=== PATIENT | female | born 1985 | race Caucasian/White ===

== ENCOUNTER 2018-08-22 19:11 | Emergency (ER) | payer MEDICARE, MEDICAID, SELFPAY ==
[2018-08-22 19:14] VITALS: BP 130/71; PULSE 90; RESP 16; TEMP 37.1; O2SAT 96
--- NOTE | 2018-08-22 19:49 | ED.GENADUL_ITS ---
Discharge Plan Disposition Patient Disposition: HOME Condition: Stable Discharge Details Chief Complaint: Nk/Back Pain Clinical Impression: Back pain with right-sided sciatica Primary Care Provider: [facility],LOCAL ED Provider: Silviano Solis Home Meds and New Rx's Prescriptions: New ibuprofen [IBU] 600 mg tablet 600 mg PO QID PRN (Reason: pain) Qty: 20 RF: 0 Continue clindamycin HCl 150 MG capsule 450 mg PO TID Qty: 63 RF: 0 acetaminophen [Tylenol] 325 MG tablet 650 mg PO PRN PRNRF: 0 Insulin Glargine,Hum.rec.anlog [Lantus] 100 UNIT/ML Vial 25 units SQ HS RF: 0 Discontinued ibuprofen [Advil] 200 MG tablet 400 mg PO PRN PRNRF: 0 Discharge Instructions Instructions: Sciatica (ED), Lower Back Exercises (ED) Additional Instructions: Feel free to return to the emergency department for any new or worsening symptoms otherwise follow-up with your primary care provider if not improving over the next couple weeks. Referrals: Primary Care Provider [Outside] Medical Decision Making Patient presenting to the emergency department for chief complaint of back pain and sciatica. Patient states that she began having sciatica with her last and that sciatica flares up intermittently and this time she feels that is due to the weather. It is been going on for approximately 1 day and feels normal to her typical sciatic discomfort. Patient denies any injury or trauma, lifting, changes in bowel or bladder function, saddle anesthesia or change in bowel or bladder function. Physical exam is remarkable for positive right-sided straight leg raise, lumbar tenderness mainly on the right, and sciatic notch tenderness on the right. Physical exam is otherwise unremarkable and no signs of emergent back pain are noted. Patient given ketorolac and lidocaine patch and prescription for ibuprofen to use on an outpatient basis along with recommendation for [id number] lidocaine. Patient states that Flexeril has not been helpful in the past and that receiving shot of ketorolac helps the most. Patient does have history of diabetes so patient not placed on steroids at this time but is considered as a potential modality if initial treatment fails. After discussion of diagnosis and plan of care patient has no further needs, questions, or concerns and states clear understanding to return to the emergency department for any worsening symptoms. HPI General Mode of arrival: ambulatory . Date/Time Provider Initiated Documentation: 08/22/18 19:23 . Limitations to Documentation: no limitations . Information obtained by: patient . History of Present Illness 32 year old F presents to the emergency department with the chief complaint of back pain, described as moderate, with intensity rated at 9. Quality is described as sharp, and is localized to the back. Patient extremity (right) . Patient started experiencing this day(s) (1) and it has been constant. Rest improves symptom(s), Movement worsens symptoms . Patient notes no other symptoms.. Patient did receive the following treatments prior to arrival, other (Acetaminophen) Related Data Home Medications Medication Instructions Recorded Confirmed acetaminophen [Tylenol] 650 mg PO PRN PRN 05/15/17 08/22/18 Insulin Glargine,Hum.rec.anlog 25 units SQ HS 05/10/18 08/22/18 [Lantus] clindamycin HCl 450 mg PO TID #63 cap 05/20/18 08/22/18 ibuprofen [IBU] 600 mg PO QID PRN #20 tab 08/22/18 Previous Rx's Medication Instructions Recorded clindamycin HCl 450 mg PO TID #63 cap 05/20/18 ibuprofen [IBU] 600 mg PO QID PRN #20 tab 08/22/18 Allergies Allergy/AdvReac Type Severity Reaction Status Date / Time Penicillins AdvReac Intermediate Hives Unverified 08/22/18 19:19 guaifenesin [From Robitussin] AdvReac Mild Nausea Unverified 08/22/18 19:19 General Stated Complaint: Nk/Back Pain JUDITH: 4 Review of Systems Constitutional Denies chills and Denies fever(s) Cardiovascular Denies chest pain and Denies dyspnea on exertion Respiratory Denies dyspnea on exertion Gastrointestinal Denies abdominal pain, Denies change in bowel habits, Denies diarrhea, Denies nausea and Denies vomiting Genitourinary Denies urinary incontinence Musculoskeletal Reports as per HPI and Reports back pain Neurologic Denies sensory deficit PFSH Social History Smoking/Tobacco Use Status: Current every day Exam Const General: cooperative and no acute distress Orientation: alert, awake and oriented x3 Neck Neck: normal visual inspection, full ROM and no meningeal signs Resp Effort & Inspection: normal respiratory effort Auscultation: clear to auscultation bilaterally Cardio Rate: regular rate Rhythm: regular rhythm Heart Sounds: S1 normal and S2 normal GI Palpation: no hepatosplenomegaly, no aortic enlargement, no masses and no pulsatile masses Back/Spine/Pelvis Thoracic/Lumbar Spine: pain with thoraco-lumbar ROM, paraspinal tenderness ( lower lumbar), thoraco-lumbar ROM limited, lumbar spinal tenderness and straight leg raise positive (right ) Pelvis: no pain with anterior-posterior compression, no pain with lateral compression, buttock tenderness on the right and sciatic notch tenderness on the right Sacroiliac joints: on the left Neuro General: alert, awake and oriented x3 DTR's: Rt Patellar: 1+, Lt Patellar: 1+, Rt Ankle: 1+ and Lt Ankle: 1+ Extrem Right lower extremity: hip/thigh Details: normal to inspection, knee Details: normal to inspection and lower leg Details: normal to inspection Course Vital Signs Temperature 37.1 C 08/22/18 19:14 Pulse 90 08/22/18 19:14 Respiratory Rate 16 08/22/18 19:14 Blood Pressure 130/71 08/22/18 19:14 Pulse Oximetry 96 08/22/18 19:14 Temperature 37.1 C 08/22/18 19:14 Temperature Source Temporal Artery Scan 08/22/18 19:14 Pulse 90 08/22/18 19:14 Respiratory Rate 16 08/22/18 19:14 Respiratory Effort Non-Labored 08/22/18 19:15 Blood Pressure 130/71 08/22/18 19:14 Blood Pressure Position Sitting 08/22/18 19:14 Pulse Oximetry 96 08/22/18 19:14 Oxygen Delivery Method Room Air 08/22/18 19:14 Oxygen Flow Rate 0 08/22/18 19:14 Pain Level 9 08/22/18 19:15
[2018-08-22] MEDS: Ketorolac 60 MG/2 ML VIAL IM (20:00)
[2018-08-22] MEDS: Lidocaine 5% Patch 1 PATCH TP (20:00)
== END 2018-08-22 20:31 | disposition home or self-care (01) ==
LOC: ER 20:35
PROVIDERS: Emergency Provider Nurse Practitioner Family; PCP Physician Assistant
DX: M54.41 Lumbago with sciatica, right side (principal)
CPT/HCPCS: 96372; 99284; J1885

== ENCOUNTER 2018-09-07 15:44 | Emergency (ER) | payer MEDICARE, MEDICAID, SELFPAY ==
[2018-09-07] VITALS (13 sets, daily range): BP systolic 130–164; BP diastolic 65–106; PULSE 80–98; RESP 12–29; TEMP 36.7; O2SAT 95–98
[2018-09-07 16:19] LABS: Bilirubin Negative (Negative); Blood Negative (Negative); Clarity Sl Cloudy; Glucose 500 mg/dL (Negative); Ketones Negative (Negative); Leukocyte Esterase Negative (Negative); Nitrite Negative (Negative); Urobilinogen 0.2 EU/dL (Up TO 0.2); pH 5.5 (5-8)
[2018-09-07 16:22] LABS: Abs Immature Grans 0.04 k/cumm (0.0-0.09); Absolute Basophil Count 0.04 k/cumm (0.0-0.2); Absolute Eosinophil Count 0.25 k/cumm (0.0-0.7); Absolute Lymphocyte Count 1.54 k/cumm (1.2-3.4); Absolute Monocyte Count 0.41 k/cumm (0.11-0.7); Absolute Neutrophil Count 6.82 k/cumm (1.2-6.7); Basophils % 0.4; Eosinophils % 2.7; HCT 43.4 % (36.0-46.0); HGB 14.4 g/dL (12.0-15.5); Immature Grans % 0.4; Lymphocytes % 16.9; Mean Corp. HGB Concentration 33.2 g/dL (32.0-36.0); Mean Corpuscular Hemoglobin 28.5 pg (27.0-33.0); Mean Corpuscular Volume 85.9 fL (80-95); Mean Platelet Volume 10.9 fL (8.0-11.0); Monocytes % 4.5; Neutrophils % 75.1; Platelet Count 173 x1000/uL (130-400); RBC 5.05 m/cumm (4.00-5.20); RBC Distribution Width 14.2 % (11.7-14.6)
[2018-09-07 16:33] LABS: ALT 27 U/L (12-78); AST 19 U/L (15-37); Albumin 3.3 g/dL (3.4-5.0); Alkaline Phosphatase 109 U/L (46-116); Anion Gap 11.5 mmol/L (3-11); BUN 8 mg/dL (7-18); Bilirubin, Total 0.2 mg/dL (0.2-1.0); CO2 26.5 mmol/L (21.0-32.0); CREATININE 0.87 mg/dL (0.55-1.02); Chloride 96 mmol/L (98-107); Glucose 324 mg/dL (70-100); Potassium 3.7 mmol/L (3.5-5.1); Sodium 134 mmol/L (136-145); Total Protein 7.7 g/dL (6.4-8.2)
[2018-09-07 16:34] LABS: Troponin I < 0.02 ng/mL (0.00-0.06)
[2018-09-07] MEDS: Ibuprofen 800 MG TAB PO (16:39)
[2018-09-07] MEDS: Lactated Ringers 500 ML IV (16:39)
[2018-09-07] MEDS: Acetaminophen 500 MG TAB 1000 MG PO (16:39)
[2018-09-07 16:41] LABS: TSH 2.53 uIU/mL (0.358-3.74)
--- NOTE | 2018-09-07 17:21 | DI.RAD_ITS ---
SYMPTOM/DIAGNOSIS: SOB CHEST X-RAY: Frontal and lateral views. Comparison CT scan of the abdomen and pelvis . The heart is mildly enlarged. There is again seen a prosthetic valve at the level of the sherry on the AP view. This has a similar appearance to the Topagram from the CT scan of the abdomen and pelvis from 04/22/17. The lungs are clear. No effusions or pneumothoraces are identified. The bones are intact. There is a mild thoracolumbar acetabular scoliosis present. Medial sternotomy wires are in place. IMPRESSION: No acute pulmonary process.
--- NOTE | 2018-09-07 17:29 | DI.VRAD_ITS ---
EXAM: XR Chest, 2 Views EXAM DATE/TIME: 09/07/2018 5:23 PM CLINICAL HISTORY: 32 years old, female; Signs and symptoms; Cough and shortness of breath; Patient HX: Shortness of breath, cough TECHNIQUE: XR of the chest, 2 views. COMPARISON: No relevant prior studies available. FINDINGS: Lungs: Unremarkable. No consolidation. Pleural space: Unremarkable. No pleural effusion. No pneumothorax. Heart/Mediastinum: Prosthetic heart valve is noted overlying the upper mediastinum. Mild cardiomegaly. Bones/joints: Mild scoliosis, thoracolumbar spine. Status post median sternotomy. IMPRESSION: No acute findings. Lungs are clear. Dictated and Authenticated by: Jr Malcolm MD. Ordering:TOD NICHOLS MD
--- NOTE | 2018-09-07 17:36 | ED.GENADUL_ITS ---
Discharge Plan Disposition Patient Disposition: HOME Condition: Good Discharge Details Chief Complaint: GenMedical Clinical Impression: Headache, Hypertension Primary Care Provider: Margarita Cuenca ED Provider: Nando Schwab Home Meds and New Rx's Prescriptions: No Action ibuprofen [IBU] 600 mg tablet 600 mg PO QID PRN (Reason: pain) Qty: 20 RF: 0 acetaminophen [Tylenol] 325 MG tablet 650 mg PO PRN PRNRF: 0 Insulin Glargine,Hum.rec.anlog [Lantus] 100 UNIT/ML Vial 25 units SQ HS RF: 0 Discharge Instructions Instructions: Hypertension (ED) Additional Instructions: Please follow-up with your primary care provider in regards to your hypertension. If you notice any worsening of your symptoms, or any new symptoms such as vomiting, diarrhea, fever, chills, shortness of breath, chest pain, numbness, weakness, or fainting , please return immediately to the emergency department for reevaluation. Please follow up with your primary care provider as soon as possible for reassessment and reevaluation. As always, it was a pleasure participating in your medical care today. Referrals: Margarita Cuenca [Primary Care Provider] - Medical Decision Making This is a pleasant 32-year-old female with a past medical history of DiGeorge's syndrome, diabetes, heart valve replacement, tobacco use, who presents today for evaluation of headache and elevated blood pressure. She states that she has been under a lot of stress over the last few days, she had a mild headache today, went to write 8 and got her blood pressure checked where she was noted to be elevated. She came here for further evaluation. She denies any red flags of syncope, chest pain, history of PE, arm pain, neck pain , cough fever or chills. Physical exam demonstrates a cardiac murmur, which is expected with her valve replacement. EKG shows a right bundle branch block, and findings are consistent with a prior EKGs. Chest x-ray was ordered and is negative for any pneumonia, pneumothorax or acute process. No anemia, on lab work, normal blood work on exam, TSH and urinalysis benign. During an observation period here in the ED the patient's blood pressure returned to normal on its own without any intervention. Her headache has completely improved with some Tylenol, she is feeling much better. We did get the patient up and ambulated her around the department, she had no return of the headache, no worsening chest pain, shortness of breath, or other abnormality. She had no tachycardia or hypoxemia with ambulation. The patient is PERC and Wells negative. They feel her blood pressure may have been elevated secondary to her headache, I feel she can be safely discharged home with a more normal blood pressure at this time with close follow-up with her PCP for outpatient hypertension management. We discussed red flags for which to return the patient understands. I have extensively reviewed the treatment plan and discharge instructions with the patient. I have addressed all patient concerns at this time. The patient was made aware of what symptoms to monitor for that would warrant a return to the emergency department. Discussed the plan with the patient, they demonstrate verbal understanding and agreement with our assessment and plan at this time. HPI General Date/Time Provider Initiated Documentation: 09/07/18 15:45 . HPI Narrative: This is a 32-year-old female with a past medical history of DiGeorge's syndrome, heart valve replacement, tubal ligation, diabetes, and chronic tobacco use who presents for evaluation of elevated blood pressure. Patient states that over the last few days she has been very stressed , and has developed a mild headache, because of this she went to [employer], checked her blood pressure and noted that it was elevated in the 190s for her systolic and 100 for her diastolic. She came in here for further evaluation. She is normally not on antihypertensive medications, she states that sometimes her blood pressure is high, but usually not that she denies any associated chest pain, she does admit to a very mild chronic shortness of breath which she states is from her previous cardiac valve, and smoking. She denies any worsening of her shortness of breath compared to normal. She denies any pleuritic chest pain, or generalized chest pain. Patient denies any vision changes, arm pain or neck pain. She denies any nausea, vomiting, or diarrhea. She denies any symptoms of syncope. She denies any cough, fever or chills. She has no other complaints at this time. Denies PE risk factors such as recent long car rides, immobilization, recent surgery, prior history of DVT or PE, family history of PE or DVT, morbid obesity, exogenous estrogen and smoking , hemoptysis, history of cancer. Related Data Home Medications Medication Instructions Recorded Confirmed acetaminophen [Tylenol] 650 mg PO PRN PRN 05/15/17 09/07/18 Insulin Glargine,Hum.rec.anlog 25 units SQ HS 05/10/18 09/07/18 [Lantus] ibuprofen [IBU] 600 mg PO QID PRN #20 tab 08/22/18 09/07/18 Previous Rx's Medication Instructions Recorded ibuprofen [IBU] 600 mg PO QID PRN #20 tab 08/22/18 Allergies Allergy/AdvReac Type Severity Reaction Status Date / Time Penicillins AdvReac Intermediate Hives Unverified 09/07/18 15:55 guaifenesin [From Robitussin] AdvReac Mild Nausea Unverified 09/07/18 15:55 General Stated Complaint: GenMedical JUDITH: 4 Review of Systems Review of Systems All systems reviewed & are unremarkable except as noted in HPI and below Exam Narrative Exam Narrative: 1.Const: Well-nourished, Well-developed, appearing stated age 2.Eyes: PERRL, no conjunctival injection, and symmetrical lids. 3.ENT: Atraumatic external nose and ears. Moist MM. Neck: Symmetric, trachea midline, No thyromegaly. Patient demonstrates good movement of cervical neck. There is no nuchal rigidity, no nuchal tenderness. Patient is able to flex the neck without any difficulty or significant pain. Negative Kernig's and Brudzinski sign. 4.CVS: +S1/S2, notable murmur with split S2. Peripheral pulses 2+ and equal in all extremities. Brisk capillary refill in all extremities. 5.RESP: Unlabored respiratory effort. Clear to auscultation bilaterally. No wheezes rales or rhonchi 6.GI: Soft, Nontender/Nondistended, No hepatosplenomegaly. No guarding or rebound. 7.MSK: Normocephalic/Atraumatic, Extremities w/o deformity or ttp No cyanosis or clubbing, Normal movement of all extremities 8.Skin: Warm, Dry. No rashes or lesions. 9.Neuro: cutting machine tender decorative II-XII grossly intact. Sensation grossly intact, no focal neurologic deficits. 10.Psych: (AAO) x3. Appropriate mood and affect Course Vital Signs Temperature 36.7 C 09/07/18 15:50 Pulse 98 H 09/07/18 15:50 Respiratory Rate 16 09/07/18 15:50 Blood Pressure 164/106 H 09/07/18 15:50 Pulse Oximetry 98 09/07/18 15:50 Temperature 36.7 C 09/07/18 15:50 Temperature Source Temporal Artery Scan 09/07/18 15:50 Pulse 89 09/07/18 16:46 Pulse 89 09/07/18 16:50 Respiratory Rate 28 H 09/07/18 16:50 Respiratory Effort Non-Labored 09/07/18 15:53 Blood Pressure 141/73 H 09/07/18 16:46 Blood Pressure Mean 89 09/07/18 16:46 Blood Pressure Position Sitting 09/07/18 15:50 Pulse Oximetry 96 09/07/18 16:50 Oxygen Delivery Method Room Air 09/07/18 15:50 Oxygen Flow Rate 0 09/07/18 15:50 Pain Level 0 09/07/18 15:50 Lab/Test Results Lab/Test Results: Laboratory Tests Range/Units 09/07/18 09/07/18 09/07/18 16:09 16:09 16:09 WBC (4.4-10.8) k/cumm 9.10 RBC (4.00-5.20) m/cumm 5.05 Hgb (12.0-15.5) g/dL 14.4 Hct (36.0-46.0) % 43.4 MCV (80-95) fL 85.9 MCH (27.0-33.0) pg 28.5 MCHC (32.0-36.0) g/dL 33.2 RDW (11.7-14.6) % 14.2 Plt Count (130-400) x1000/uL 173 MPV (8.0-11.0) fL 10.9 Immature Gran % 0.4 Neutrophils % 75.1 Lymphocytes % 16.9 Monocytes % 4.5 Eosinophils % 2.7 Basophils % 0.4 Absolute Neutrophils (1.2-6.7) k/cumm 6.82 H Absolute Lymphocytes (1.2-3.4) k/cumm 1.54 Absolute Monocytes (0.11-0.7) k/cumm 0.41 Absolute Eosinophils (0.0-0.7) k/cumm 0.25 Absolute Basophils (0.0-0.2) k/cumm 0.04 Sodium (136-145) mmol/L 134 L Potassium (3.5-5.1) mmol/L 3.7 Chloride (98-107) mmol/L 96 L Carbon Dioxide (21.0-32.0) mmol/L 26.5 Anion Gap (3-11) mmol/L 11.5 H BUN (7-18) mg/dL 8 Creatinine (0.55-1.02) mg/dL 0.87 Estimated GFR/1.73 m2 (mL/min/1.73m2) >= 60.00 Glucose (70-100) mg/dL 324 H Calcium (8.5-10.1) mg/dL 9.0 Total Bilirubin (0.2-1.0) mg/dL 0.2 AST (15-37) U/L 19 ALT (12-78) U/L 27 Alkaline Phosphatase (46-116) U/L 109 Troponin I (0.00-0.06) ng/mL < 0.02 Total Protein (6.4-8.2) g/dL 7.7 Albumin (3.4-5.0) g/dL 3.3 L TSH (0.358-3.74) uIU/mL 2.53 Urine Color (Yellow) Urine Clarity Urine pH (5-8) Ur Specific [place] (1.005-1.025) Urine Protein (Negative) mg/dL Urine Ketones (Negative) mg/dL Urine Blood (Negative) Urine Nitrite (Negative) Urine Bilirubin (Negative) Urine Urobilinogen (Up TO 0.2) EU/dL Ur Leukocyte Esterase (Negative) Urine Glucose (Negative) mg/dL Range/Units 09/07/18 16:12 WBC (4.4-10.8) k/cumm RBC (4.00-5.20) m/cumm Hgb (12.0-15.5) g/dL Hct (36.0-46.0) % MCV (80-95) fL MCH (27.0-33.0) pg MCHC (32.0-36.0) g/dL RDW (11.7-14.6) % Plt Count (130-400) x1000/uL MPV (8.0-11.0) fL Immature Gran % Neutrophils % Lymphocytes % Monocytes % Eosinophils % Basophils % Absolute Neutrophils (1.2-6.7) k/cumm Absolute Lymphocytes (1.2-3.4) k/cumm Absolute Monocytes (0.11-0.7) k/cumm Absolute Eosinophils (0.0-0.7) k/cumm Absolute Basophils (0.0-0.2) k/cumm Sodium (136-145) mmol/L Potassium (3.5-5.1) mmol/L Chloride (98-107) mmol/L Carbon Dioxide (21.0-32.0) mmol/L Anion Gap (3-11) mmol/L BUN (7-18) mg/dL Creatinine (0.55-1.02) mg/dL Estimated GFR/1.73 m2 (mL/min/1.73m2) Glucose (70-100) mg/dL Calcium (8.5-10.1) mg/dL Total Bilirubin (0.2-1.0) mg/dL AST (15-37) U/L ALT (12-78) U/L Alkaline Phosphatase (46-116) U/L Troponin I (0.00-0.06) ng/mL Total Protein (6.4-8.2) g/dL Albumin (3.4-5.0) g/dL TSH (0.358-3.74) uIU/mL Urine Color (Yellow) Yellow Urine Clarity Sl cloudy Urine pH (5-8) 5.5 Ur Specific [place] (1.005-1.025) 1.020 Urine Protein (Negative) mg/dL Negative Urine Ketones (Negative) mg/dL Negative Urine Blood (Negative) Negative Urine Nitrite (Negative) Negative Urine Bilirubin (Negative) Negative Urine Urobilinogen (Up TO 0.2) EU/dL 0.2 Ur Leukocyte Esterase (Negative) Negative Urine Glucose (Negative) mg/dL 500 H POC- Test(urine) Negative
== END 2018-09-07 17:58 | disposition home or self-care (01) ==
PROVIDERS: Emergency Provider Student in an Organized Health Care Education/Training Program; PCP Physician Assistant
DX: R51 Headache (principal); I10 Essential (primary) hypertension; I45.10 Unspecified right bundle-branch block; Z95.2 Presence of prosthetic heart valve; E11.9 Type 2 diabetes mellitus without complications; F17.210 Nicotine dependence, cigarettes, uncomplicated; Z79.4 Long term (current) use of insulin
CPT/HCPCS: 36415; 80053; 93005; 96360; 99285; 71046; 81003; 84443; 84484; 85025; 93010

== ENCOUNTER 2018-10-19 20:11 | Emergency (ER) | payer MEDICARE, MEDICAID, SELFPAY ==
[2018-10-19 20:27] VITALS: BP 166/83; PULSE 85; RESP 16; TEMP 36.5; O2SAT 97
--- NOTE | 2018-10-19 20:54 | DI.RAD_ITS ---
SYMPTOM/DIAGNOSIS: COUGH, SOB, R/O ACUTE DISEASE PA AND LATERAL CHEST: 10/19 Note is made of prior sternotomy with an apparent aortic valve prosthesis. Cardiac size is upper limits of normal. Lungs are clear. No pleural effusion. No change in appearance of the chest in comparison with examination of 09/07/18
--- NOTE | 2018-10-19 20:55 | W.ED.GENAD ---
Discharge Plan Disposition Patient Disposition: HOME Condition: Stable Discharge Details Chief Complaint: RespSymp Clinical Impression: Acute bronchitis, Cough Primary Care Provider: Margarita Cuenca ED Provider: Kathie Montes Home Meds and New Rx's Prescriptions: New benzonatate [Tessalon Perles] 100 mg capsule 100 mg PO TID PRN (Reason: cough) Qty: 10 RF: 0 Continued ibuprofen [IBU] 600 mg tablet 600 mg PO QID PRN (Reason: pain) Qty: 20 RF: 0 azithromycin [Zithromax Z-Rory] 250 mg Tablet 1 tab PO DAILY RF: 0 acetaminophen [Tylenol] 325 MG tablet 650 mg PO PRN PRNRF: 0 Insulin Glargine,Hum.rec.anlog [Lantus] 100 UNIT/ML Vial 24 units SQ HS RF: 0 Discharge Instructions Instructions: Acute Bronchitis (ED), Acute Cough (ED) Additional Instructions: Take the antibiotics until finished. Use the albuterol inhaler and cough medicine as needed and directed. Follow-up with your primary care doctor in 1 week for reevaluation. Return immediately to the emergency department any worsening or new concerning symptoms. 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 Seen by her PCP office yesterday and started on Zithromax. Patient states tonight she was sitting in front of the pellet stove and felt like she if had more coughing shortness of breath. She states she went outside and her symptoms improved. She denies any throat swelling or wheezing. She has a history of tubal ligation and denies chance of and is declining test at this time. Blood pressure mildly hypertensive, remainder vitals within normal limits. Patient afebrile. She appears nontoxic and is texting on phone and appears in no acute distress on evaluation. Normal ENT exam. Lungs clear to auscultation. Patient states she mainly would like cough medication and albuterol inhaler. Is also requesting a chest x-ray. She is declining a nebulizer treatment. Will send for chest xray. 2157 --chest x-ray negative. Patient has been resting comfortably in room in no acute respiratory distress and is requesting to go home. Will send home with albuterol inhaler and dose of Tessalon Perles and prescription for Tessalon Perles. Discussed with patient that she has no wheezing, no respiratory distress and with concern for hyperglycemia with steroids, will hold on steroids at this time and she is agreeable. Instructed to follow-up with primary care doctor for reevaluation and return here worse. HPI General Mode of arrival: ambulatory. Date/Time Provider Initiated Documentation: 10/19/18 20:43. Limitations to Documentation: no limitations. Information obtained by: patient. HPI Narrative: Patient is a 32-year-old female with a history of diabetes, hypertension, seizure disorder, rheumatoid arthritis, obesity who presents to the ED w/ a c/o cold symptoms for the past week. Pt states she was seen by her PCP office yesterday and diagnosed with a sinus and ear infection and started on Z-Rory. Patient states she was unable to start the prescription until today. Patient states she has been coughing with yellow and green sputum as well as had chest congestion but states she otherwise has had no fever and has been eating and drinking normally. She also denies any headache or neck pain. Patient states she came into the emergency department this evening because she was sitting in front of a pellet stove and felt a sudden onset of shortness of breath. Patient states she feels like it was due to being near this which she has never been before. Pt states she walked outside and her symptoms resolved. She denies any shortness of breath at present. She denies any leg pain or swelling. Related Data Home Medications Medication Instructions Recorded Confirmed acetaminophen [Tylenol] 650 mg PO PRN PRN 05/15/17 10/19/18 Insulin Glargine,Hum.rec.anlog 24 units SQ HS 05/10/18 10/19/18 [Lantus] ibuprofen [IBU] 600 mg PO QID PRN #20 tab 08/22/18 10/19/18 azithromycin [Zithromax Z-Rory] 1 tab PO DAILY 10/19/18 10/19/18 benzonatate [Tessalon Perles] 100 mg PO TID PRN #10 cap 10/19/18 Previous Rx's Medication Instructions Recorded ibuprofen [IBU] 600 mg PO QID PRN #20 tab 08/22/18 benzonatate [Tessalon Perles] 100 mg PO TID PRN #10 cap 10/19/18 Allergies Allergy/AdvReac Type Severity Reaction Status Date / Time Penicillins AdvReac Intermediate Hives Unverified 10/19/18 20:32 guaifenesin [From Robitussin] AdvReac Mild Nausea Unverified 10/19/18 20:32 General Stated Complaint: RespSymp JUDITH: 5 Review of Systems Review of Systems All systems reviewed & are unremarkable except as noted in HPI and below Constitutional Reports as per HPI, Denies chills and Denies fever(s) Eyes Denies blurry vision ENT Denies dizziness, Denies otalgia, Denies sore throat and Denies throat swelling Cardiovascular Denies chest pain and Denies dyspnea Respiratory Reports chest congestion, Reports cough, Denies dyspnea and Denies wheezing Gastrointestinal Denies abdominal pain, Denies diarrhea and Denies vomiting Genitourinary Denies hematuria and Denies dysuria Musculoskeletal Denies back pain and Denies numbness Integumentary/Breasts Denies lesions and Denies rash Neurologic Denies dizziness and Denies numbness Allergic/Immunologic Denies throat swelling and Denies wheezing [facility] Medical History Diabetes (Chronic) HTN (hypertension) (Chronic) Rheumatoid arthritis (Chronic) Surgical History H/O heart valve replacement with bioprosthetic valve (Acute) History of bilateral tubal ligation (Acute) H/O section (Chronic) History of hernia repair (Chronic) Social History Smoking/Tobacco Use Status: Current every day alcohol intake: current alcohol intake frequency: a few times a month substance use type: does not use Exam Const General: cooperative, healthy appearing and no acute distress HENMT Head: normal to inspection Ears: hearing grossly normal bilaterally, external ears normal and TM's normal bilaterally General nose exam: external nose normal Face and sinus: normal facial exam and sinuses nontender Mouth: oral mucosae normal Throat: posterior oropharynx normal Eyes General: appearance normal, both eyes and all related structures Pupils: PERRL EOM: EOM intact bilaterally Neck Neck: normal visual inspection and No submandibular swelling Lymphatic: no lymphadenopathy noted Chest Chest: normal inspection of the chest and no tenderness Resp Effort & Inspection: normal respiratory effort and able to speak in complete sentences Auscultation: clear to auscultation bilaterally Cardio Rate: regular rate Rhythm: regular rhythm GI Inspection: normal to inspection Palpation: soft, not firm, not rigid and nontender Auscultation: normal bowel sounds Skin General skin exam: no rashes or lesions noted Neuro General: alert, awake and oriented x3 Cognition: normal cognition Speech: speech normal Motor: muscle tone normal throughout Sensory Exam: no sensory deficits noted Extrem General: normal to inspection, full ROM, normal capillary refill, no calf tenderness bilaterally and no edema Psych Appearance: grossly normal Mental Status: mental status grossly normal Speech and Movement: speech and movement normal Affect: normal affect Course Vital Signs Temperature 97.7 F 10/19/18 20:27 Pulse 85 10/19/18 20:27 Respiratory Rate 16 10/19/18 20:27 Blood Pressure 166/83 H 10/19/18 20:27 Pulse Oximetry 97 10/19/18 20:27 Temperature 97.7 F 10/19/18 20:27 Temperature Source Skin 10/19/18 20:27 Pulse 85 10/19/18 20:27 Respiratory Rate 16 10/19/18 20:27 Respiratory Effort Non-Labored 10/19/18 20:33 Respiratory Depth Normal 10/19/18 20:33 Blood Pressure 166/83 H 10/19/18 20:27 Pulse Oximetry 97 10/19/18 20:27 Pain Level 0 10/19/18 20:27
--- NOTE | 2018-10-19 21:31 | DI.VRAD_ITS ---
EXAM: XR Chest, 2 Views EXAM DATE/TIME: 10/19/2018 9:04 PM CLINICAL HISTORY: 32 years old, female; Signs and symptoms; Cough and shortness of breath; Prior surgery; Surgery date: 6+ months TECHNIQUE: XR of the chest, 2 views. COMPARISON: CR XR CHEST 2V PA LATERAL 09/07/2018 5:16 PM FINDINGS: Lungs: Clear lungs. Pleural space: No pneumothorax. No sizable pleural effusion. Heart/Mediastinum: Cardiac valve replacement. Mild cardiomegaly. Bones/joints: Sternotomy. Thoracolumbar levoscoliosis. IMPRESSION: Clear lungs. Dictated and Authenticated by: Giorgi Daniel MD. Ordering:KEEGAN Vázquez MD
[2018-10-19] MEDS: Albuterol HFA 8 GM 60 PUFF INH IH (22:07)
[2018-10-19] MEDS: Benzonatate 100 MG CAP PO (22:07)
== END 2018-10-19 22:11 | disposition home or self-care (01) ==
PROVIDERS: Emergency Provider Physician Assistant; PCP Physician Assistant
DX: J20.9 Acute bronchitis, unspecified (principal); F17.210 Nicotine dependence, cigarettes, uncomplicated; E11.9 Type 2 diabetes mellitus without complications; Z79.4 Long term (current) use of insulin; I10 Essential (primary) hypertension
CPT/HCPCS: 99283; 71046

== ENCOUNTER 2018-10-23 15:02 | Emergency (ER) | payer MEDICARE, MEDICAID, SELFPAY ==
[2018-10-23 15:17] VITALS: BP 154/86; PULSE 88; RESP 20; TEMP 36.8; O2SAT 96
[2018-10-23] MEDS: Ibuprofen 600 MG TAB PO (15:36)
[2018-10-23] MEDS: Acetaminophen 500 MG TAB 1000 MG PO (15:36)
[2018-10-23 15:37] VITALS: BP 154/86; PULSE 88; RESP 20; TEMP 36.8; O2SAT 96
--- NOTE | 2018-10-24 00:58 | ED.GENADUL_ITS ---
Discharge Plan Disposition Patient Disposition: HOME Condition: Fair Discharge Details Chief Complaint: Nk/Back Pain Clinical Impression: Low back pain Primary Care Provider: Margarita Cuenca ED Provider: Charley Mak Home Meds and New Rx's Prescriptions: Continued ibuprofen [IBU] 600 mg tablet 600 mg PO QID PRN (Reason: pain) Qty: 20 RF: 0 azithromycin [Zithromax Z-Rory] 250 mg Tablet 1 tab PO DAILY RF: 0 benzonatate [Tessalon Perles] 100 mg capsule 100 mg PO TID PRN (Reason: cough) Qty: 10 RF: 0 acetaminophen [Tylenol] 325 MG tablet 650 mg PO PRN PRNRF: 0 Insulin Glargine,Hum.rec.anlog [Lantus] 100 UNIT/ML Vial 24 units SQ HS RF: 0 Discharge Instructions Instructions: Low Back Strain (ED), Lower Back Exercises (ED) Additional Instructions: Encourage hydration. Gentle range of motion and frequent ambulation, see attached education on low back exercises. Tylenol and/or Ibuprofen as needed for discomfort. If you develop altered sensation, weakness, incontinence, or other new/worsening symptoms please seek care urgently once again. Referrals: Margarita Cuenca [Primary Care Provider] - Discharge Data Discharge Date/Time-TO BE ENTERED AT DEPARTURE: 10/23/18 15:43 Medical Decision Making Patient a 32-year-old female, well-known to myself, with chief complaint of back pain. She reports that she slipped and caught herself shortly prior to arrival. Is currently days endorsing 8 out of 10 pain. Denies any altered sensation, no radiating pain. No weakness in the lower extremities, no incontinence or change in bowel or bladder habits. Denies any recent illness. Denies any cough, cold, fevers or chills. Denies any GI upset. No history of back pain previously per patient report. She has not taken anything as of yet for discomfort. Patient is full range of motion of the back. Neuro exam is intact. Pain is very diffuse about the back with no focal area of discomfort or step-off noted. No saddle paresthesias. Negative straight leg raise bilaterally. Advised at this point this sounds to be musculoskeletal. She will be given Tylenol and ibuprofen to help with discomfort. She is ambulating without any signs of distress. Discussed new/worsening symptoms when to seek care urgently once again for this. I did advise on exercises and education on exercises will be provided. Patient is also endorsing rash to the dorsal aspect of the left foot. She reports that this is been present and unchanged for the past year since being exposed to fleas. Not see any signs of abscess or emergent findings. Advised that she should follow-up with her primary care regarding her chronic rash. Patient given strict return precautions. She will contact her primary care to make appointment. All of her questions and concerns were addressed and she is in agreement this plan HPI General Mode of arrival: ambulatory . Date/Time Provider Initiated Documentation: 10/23/18 15:20 . Limitations to Documentation: no limitations . Information obtained by: patient . History of Present Illness 32 year old F presents to the emergency department with the chief complaint of low back pain, described as moderate, with intensity rated at 8. Quality is described as aching, and is localized to the back. Patient reports no radiation. Patient started experiencing this minute(s) and it has been constant. No relieving factors improve symptom(s), No exacerbating factors reported . P atient notes rash (Reports chronic rash in the left foot x 1 year); denies chest pain, cough, fever/chills, headaches, malaise and nausea/vomiting. Patient did receive the following treatments prior to arrival, none Related Data Home Medications Medication Instructions Recorded Confirmed acetaminophen [Tylenol] 650 mg PO PRN PRN 05/15/17 10/23/18 Insulin Glargine,Hum.rec.anlog 24 units SQ HS 05/10/18 10/23/18 [Lantus] ibuprofen [IBU] 600 mg PO QID PRN #20 tab 08/22/18 10/19/18 azithromycin [Zithromax Z-Rory] 1 tab PO DAILY 10/19/18 10/23/18 benzonatate [Tessalon Perles] 100 mg PO TID PRN #10 cap 10/19/18 10/23/18 Previous Rx's Medication Instructions Recorded ibuprofen [IBU] 600 mg PO QID PRN #20 tab 08/22/18 benzonatate [Tessalon Perles] 100 mg PO TID PRN #10 cap 10/19/18 Allergies Allergy/AdvReac Type Severity Reaction Status Date / Time Penicillins AdvReac Intermediate Hives Unverified 10/23/18 15:24 guaifenesin [From Robitussin] AdvReac Mild Nausea Unverified 10/23/18 15:24 General Stated Complaint: Nk/Back Pain JUDITH: 4 Review of Systems Constitutional Reports as per HPI, Denies chills, Denies fever(s), Denies headache(s) and Denies weakness ENT Denies headache(s) Cardiovascular Reports as per HPI Respiratory Reports as per HPI and Denies cough Gastrointestinal Denies abdominal pain, Denies change in bowel habits, Denies nausea and Denies vomiting Genitourinary Denies urinary incontinence Musculoskeletal Reports as per HPI and Denies tingling Integumentary/Breasts Reports as per HPI and Denies wounds Neurologic Denies headache(s), Denies tingling and Denies weakness [facility] Medical History Diabetes (Chronic) HTN (hypertension) (Chronic) Rheumatoid arthritis (Chronic) Surgical History H/O heart valve replacement with bioprosthetic valve (Acute) History of bilateral tubal ligation (Acute) H/O section (Chronic) History of hernia repair (Chronic) Social History Smoking/Tobacco Use Status: Current every day alcohol intake: current alcohol intake frequency: a few times a month substance use type: does not use Exam Const General: cooperative, healthy appearing, comfortable, no acute distress, well developed and well groomed Nutritional Appearance: average body habitus and well nourished Orientation: alert and awake Resp Effort & Inspection: normal respiratory effort, able to speak in complete sentences and no respiratory distress Auscultation: clear to auscultation bilaterally Cardio Rate: regular rate Rhythm: regular rhythm Heart Sounds: S1 normal and S2 normal GI Inspection: normal to inspection Palpation: soft, no hepatosplenomegaly, not rigid and nontender Back/Spine/Pelvis Back: no CVA tenderness Cervical Spine: normal cervical lordosis and cervical ROM normal Thoracic/Lumbar Spine: No thoracic and lumbar spine normal to inspection (Patient has diffuse discomfort, please see image below.), straight leg raise negative bilaterally, bend over test abnormal, No mass, paraspinal tenderness, No thoraco-lumbar ROM limited, No scoliosis, No thoraco-lumbar spasm, thoracic spinal tenderness, lumbar spinal tenderness and No straight leg raise positive Pelvis: no pain with anterior-posterior compression and no pain with lateral compression Back/spine/pelvis image: 1. Area discomfort Skin General skin exam: other (Patient has been appears to be chronic skin discoloration to the dorsal asp) Neuro General: alert and awake Cognition: normal cognition Speech: speech normal Gait: normal gait Motor: muscle tone normal throughout, strength 5/5 throughout and no movement abnormalities noted Sensory Exam: no sensory deficits noted (No saddle paresthesias noted) DTR's: Rt Patellar: 2+, Lt Patellar: 2+, Rt Ankle: 2+ and Lt Ankle: 2+ Plantar Reflexes: Downgoing: bilateral Extrem General: normal to inspection, full ROM, normal capillary refill, no pedal edema, no calf tenderness and normal gait Psych Appearance: grossly normal and well kempt Mental Status: mental status grossly normal Speech and Movement: speech and movement normal Course Vital Signs Temperature 36.8 C 10/23/18 15:17 Pulse 88 10/23/18 15:17 Respiratory Rate 20 10/23/18 15:17 Blood Pressure 154/86 H 10/23/18 15:17 Pulse Oximetry 96 10/23/18 15:17 Temperature 36.8 C 10/23/18 15:17 Temperature Source Skin 10/23/18 15:17 Pulse 88 10/23/18 15:17 Respiratory Rate 20 10/23/18 15:17 Respiratory Effort 10/23/18 15:20 Blood Pressure 154/86 H 10/23/18 15:17 Blood Pressure Position Supine 10/23/18 15:17 Pulse Oximetry 96 10/23/18 15:17 Oxygen Delivery Method Room Air 10/23/18 15:17 Oxygen Flow Rate 0 10/23/18 15:17 Pain Level 8 10/23/18 15:17
== END 2018-10-23 15:43 | disposition home or self-care (01) ==
PROVIDERS: Emergency Provider Physician Assistant; PCP Physician Assistant
DX: M54.5 Low back pain (principal); I10 Essential (primary) hypertension; E11.9 Type 2 diabetes mellitus without complications; Z79.4 Long term (current) use of insulin
CPT/HCPCS: 99283; 99282

== ENCOUNTER 2018-11-08 19:44 | Emergency (ER) | payer MEDICARE, MEDICAID, SELFPAY ==
[2018-11-08 19:49] VITALS: BP 149/79; PULSE 90; RESP 16; TEMP 36.7; O2SAT 98
--- NOTE | 2018-11-08 20:06 | ED.GENADUL_ITS ---
Discharge Plan Disposition Patient Disposition: HOME Condition: Good Discharge Details Chief Complaint: Headache Clinical Impression: Headache Primary Care Provider: Margarita Cuenca ED Provider: Mahin Alvares Meds and New Rx's Prescriptions: Continued ibuprofen [IBU] 600 mg tablet 600 mg PO QID PRN (Reason: pain) Qty: 20 RF: 0 acetaminophen [Tylenol] 325 MG tablet 650 mg PO PRN PRNRF: 0 Insulin Glargine,Hum.rec.anlog [Lantus] 100 UNIT/ML Vial 24 units SQ HS RF: 0 Discharge Instructions Instructions: General Headache (ED) Additional Instructions: Try Motrin or Excedrin for recurrent headaches. Follow-up with your primary care next week as planned. Return to the emergency department if you develop severe persistent headache, neurologic changes, confusion, vision change. Referrals: Margarita Cuenca [Primary Care Provider] - Medical Decision Making Patient here with intermittent headaches for 1 month. They do not occur every day. She has no sinus tenderness or pain. She has no URI symptoms. She denies eye pain or visual change. She has no tenderness along the temporal artery and she is quite young. She is neurologically intact. Headache is almost gone at this point. She has an appointment to see her primary care. I do not think imaging or laboratory studies are indicated. She has tried Tylenol but not Motrin or Excedrin. She will try this with her next headache and follow-up with primary care next week. HPI General Mode of arrival: ambulatory . Date/Time Provider Initiated Documentation: 11/08/18 19:58 . Limitations to Documentation: no limitations . Information obtained by: patient . HPI Narrative: Patient presents to ED with complaint of left-sided pressure behind her eye. She has had this intermittently for the last month. It does not bother her every day. It was pretty severe earlier tonight and is almost gone now. She has had no eye pain. She has had no visual change. She has had no neurologic change. She has had no nausea/vomiting. She has an appointment to see her doctor next week for the headaches. Related Data Home Medications Medication Instructions Recorded Confirmed acetaminophen [Tylenol] 650 mg PO PRN PRN 05/15/17 11/08/18 Insulin Glargine,Hum.rec.anlog 24 units SQ HS 05/10/18 11/08/18 [Lantus] ibuprofen [IBU] 600 mg PO QID PRN #20 tab 08/22/18 11/08/18 Previous Rx's Medication Instructions Recorded ibuprofen [IBU] 600 mg PO QID PRN #20 tab 08/22/18 Allergies Allergy/AdvReac Type Severity Reaction Status Date / Time Sulfa (Sulfonamide Allergy Other (See Unverified 11/08/18 19:54 Antibiotics) Comment) Penicillins AdvReac Intermediate Hives Unverified 10/23/18 15:24 guaifenesin [From Robitussin] AdvReac Mild Nausea Unverified 10/23/18 15:24 General Stated Complaint: Headache JUDITH: 3 Review of Systems Constitutional Denies chills, Denies fever(s), Reports headache(s), Denies poor appetite and Denies weakness Eyes Denies diplopia, Denies eye discharge, Denies eye pain, Denies seeing flashes and Denies photophobia ENT Denies vertigo, Denies dizziness, Denies otalgia, Denies facial pain, Reports headache(s), Denies nasal congestion, Denies neck pain, Denies sinus pain, Denies sinus pressure and Denies sore throat Cardiovascular Denies chest pain, Denies diaphoresis, Denies syncope, Denies lightheadedness, Denies palpitations and Denies dyspnea Respiratory Denies cough and Denies dyspnea Gastrointestinal Denies diarrhea, Denies nausea and Denies vomiting Musculoskeletal Denies abnormal gait, Denies back pain, Denies myalgias, Denies neck pain and Denies numbness Neurologic Denies abnormal gait, Denies confusion, Denies vertigo, Denies dizziness, Denies syncope, Reports headache(s), Denies numbness, Denies paresthesias and Denies weakness Psychiatric Denies confusion Endocrine Denies palpitations [facility] Medical History Diabetes (Chronic) HTN (hypertension) (Chronic) Rheumatoid arthritis (Chronic) Surgical History H/O heart valve replacement with bioprosthetic valve (Acute) History of bilateral tubal ligation (Acute) H/O section (Chronic) History of hernia repair (Chronic) Social History Smoking/Tobacco Use Status: Current every day alcohol intake: current alcohol intake frequency: a few times a month substance use type: does not use Exam Const General: cooperative, comfortable and no acute distress Orientation: alert and oriented x3 [facility] Head: normocephalic, atraumatic and no scalp tenderness Ears: external ears abnormal Face and sinus: abnormal facial exam, sinuses tender, no sinus tenderness and no tenderness Eyes Conjunctivae: conjunctivae normal Pupils: PERRL EOM: EOM intact bilaterally Neck Neck: normal visual inspection, trachea midline and supple Skin General skin exam: no rashes or lesions noted Neuro General: alert, oriented x3, gait normal, no focal motor deficits and CN's II-XI intact bilaterally Sensory Exam: no sensory deficits noted Course Vital Signs Temperature 98.1 F 11/08/18 19:49 Pulse 90 11/08/18 19:49 Respiratory Rate 16 11/08/18 19:49 Blood Pressure 149/79 H 11/08/18 19:49 Pulse Oximetry 98 11/08/18 19:49 Temperature 98.1 F 11/08/18 19:49 Temperature Source Tympanic 11/08/18 19:49 Pulse 90 11/08/18 19:49 Respiratory Rate 16 11/08/18 19:49 Respiratory Effort Non-Labored 11/08/18 19:56 Blood Pressure 149/79 H 11/08/18 19:49 Blood Pressure Position Sitting 11/08/18 19:49 Pulse Oximetry 98 11/08/18 19:49 Oxygen Delivery Method Room Air 11/08/18 19:49 Oxygen Flow Rate 0 11/08/18 19:49 Pain Level 8 11/08/18 19:49
[2018-11-08 20:15] VITALS: BP 149/79; PULSE 90; RESP 16; TEMP 36.7; O2SAT 98
== END 2018-11-08 20:14 | disposition home or self-care (01) ==
LOC: ER 20:18
PROVIDERS: Emergency Provider Emergency Medicine; PCP Physician Assistant
DX: R51 Headache (principal); E11.9 Type 2 diabetes mellitus without complications; Z79.4 Long term (current) use of insulin; I10 Essential (primary) hypertension
CPT/HCPCS: 99282

== ENCOUNTER 2019-11-22 18:11 | Emergency (ER) | payer MEDICARE, SELFPAY ==
[2019-11-22 18:19] VITALS: BP 137/69; PULSE 89; RESP 16; TEMP 36.1; O2SAT 96
--- NOTE | 2019-11-22 18:42 | W.ED.GENAD ---
Discharge Plan Disposition Patient Disposition: HOME Condition: Stable Discharge Details Chief Complaint: CERTIFIED INCOME TAX PREPARER Clinical Impression: Urinary tract infection, Vaginal yeast infection Primary Care Provider: Margarita Cuenca ED Provider: Kamron Boss Home Meds and New Rx's Prescriptions: New nitrofurantoin macrocrystal 100 mg capsule 100 mg PO BID 5 Days Qty: 10 RF: 0 Continued ibuprofen [IBU] 600 mg tablet 600 mg PO QID PRN (Reason: pain) Qty: 20 RF: 0 acetaminophen [Tylenol] 325 MG tablet 650 mg PO PRN PRNRF: 0 Insulin Glargine,Hum.rec.anlog [Lantus] 100 UNIT/ML Vial 24 units SQ HS RF: 0 Medical Decision Making 34-year-old female presents from home. She has had itching vaginal discomfort for 2 days similar to previous yeast infection which she states was treated months ago. States itching has been somewhat persistent for weeks to months time. She is afebrile and well-appearing, her exam is consistent with vulvovaginitis secondary to Yasmin. Screening urinalysis obtained As she has had some chronicity to her yeast/vulvovaginitis symptoms, I do feel a sequential 2 dose regimen 72 hours apart of Diflucan is appropriate. Given 150 mg Diflucan x1 as well as 150 mg be taken in 72 hours. She also has evidence of urinary tract infection I will treat with a course of nitrofurantoin. She is stable for outpatient management at this time. HPI General Mode of arrival: ambulatory. Date/Time Provider Initiated Documentation: 11/22/19 18:20. Limitations to Documentation: no limitations. Information obtained by: patient. History of Present Illness 34 year old F presents to the emergency department with the chief complaint of Itchy vagina, described as mild, and is localized to the pelvis and genitals. Patient reports no radiation. Patient started experiencing this month(s) and it has been intermittent. No relieving factors improve symptom(s), No exacerbating factors reported . Patient notes other; denies fever/chills. Patient did receive the following treatments prior to arrival, none Related Data Home Medications Medication Instructions Recorded Confirmed acetaminophen [Tylenol] 650 mg PO PRN PRN 05/15/17 11/22/19 Insulin Glargine,Hum.rec.anlog 24 units SQ HS 05/10/18 11/22/19 [Lantus] ibuprofen [IBU] 600 mg PO QID PRN #20 tab 08/22/18 11/22/19 nitrofurantoin macrocrystal 100 mg PO BID 5 Days #10 cap 11/22/19 Previous Rx's Medication Instructions Recorded ibuprofen [IBU] 600 mg PO QID PRN #20 tab 08/22/18 nitrofurantoin macrocrystal 100 mg PO BID 5 Days #10 cap 11/22/19 Allergies Allergy/AdvReac Type Severity Reaction Status Date / Time Sulfa (Sulfonamide Allergy Other (See Unverified 11/22/19 18:24 Antibiotics) Comment) Penicillins AdvReac Intermediate Hives Unverified 11/22/19 18:24 guaifenesin [From Robitussin] AdvReac Mild Nausea Unverified 11/22/19 18:24 General Stated Complaint: CERTIFIED INCOME TAX PREPARER JUDITH: 3 Review of Systems Narrative: States she has not been sexually active, no new sexual partners. No fever, vomiting, no vaginal bleeding or discharge. 6 systems reviewed and otherwise negative [facility] Medical History Diabetes (Chronic) HTN (hypertension) (Chronic) Rheumatoid arthritis (Chronic) Social History Smoking/Tobacco Use Status: Current every day Alcohol Intake: current Alcohol Intake frequency: a few times a month Drug use: Never Substance use type: does not use Do you feel safe at home: Yes Do you feel safe in your relationship?: Yes Exam Narrative Exam Narrative: GEN: awake, alert, oriented 3. Pleasant, well groomed, interactive. Obese HEAD: Normocephalic, atraumatic ENT: Mucous membranes moist, oropharynx partially edentulous, External ear exam unremarkable EYES: PERRL, EOMI NECK: Full ROM, no SHANT, no menigismus CHEST/RESP: Nontender, clear to auscultation bilateral, no wheeze/rhonchi/rales CARDIOVASCULAR: RRR, no murmur, rub elidia. 2+ Rad pulse bilateral ABDOMEN: Soft, nontender, no mass. +Bowel sounds : The labia majora and vaginal introitus are erythematous with scant white discharge, no asymmetry, no swelling, no significant tenderness EXT: Full ROM, no edema, no rash Neuro: Grossly normal neurologic exam, conversant, interactive. Psych: Speech fluent, thoughts congruent, affect normal Course Vital Signs Vital signs: Vital Signs Temperature 36.1 C L 11/22/19 18:19 Pulse 89 11/22/19 18:19 Respiratory Rate 16 11/22/19 18:19 Blood Pressure 137/69 11/22/19 18:19 Pulse Oximetry 96 11/22/19 18:19 Temperature 36.1 C L 11/22/19 18:19 Temperature Source Temporal Artery Scan 11/22/19 18:19 Pulse 89 11/22/19 18:19 Respiratory Rate 16 11/22/19 18:19 Respiratory Effort Non-Labored 11/22/19 18:38 Blood Pressure 137/69 11/22/19 18:19 Blood Pressure Position Sitting 11/22/19 18:19 Pulse Oximetry 96 11/22/19 18:19 Oxygen Delivery Method Room Air 11/22/19 18:19 Oxygen Flow Rate 0 11/22/19 18:19
[2019-11-22 18:57] LABS: Bilirubin Negative (Negative); Blood Large (Negative); Clarity Sl Cloudy (Clear); Glucose Negative (Negative); Ketones Trace mg/dL (Negative); Leukocyte Esterase Large (Negative); Nitrite Negative (Negative); Specific Gravity >= 1.030 (1.005-1.025); Urobilinogen 0.2 EU/dL (Up TO 0.2)
[2019-11-22 19:20] LABS: Epithelial Cells Many HPF (Negative); WBC >50 HPF (0-5)
[2019-11-22 19:21] LABS: Bacteria Few HPF (Negative); C & S Indicated? No/Sq. Contamination; Casts Negative LPF (Negative); Crystals Negative HPF (Negative); Mucus Negative (Negative); RBC 20-50 HPF (0-2)
[2019-11-22] MEDS: Fluconazole 150 MG TAB PO (20:22)
[2019-11-22] MEDS: MacroBID 100 MG CAP, 2 CAPS/BTL PO (20:22)
[2019-11-22] MEDS: Fluconazole 150 MG TAB (20:23)
[2019-11-23 06:09] VITALS: BP 137/69; PULSE 89; RESP 16; TEMP 36.1; O2SAT 96
== END 2019-11-22 21:10 | disposition home or self-care (01) ==
LOC: ER 19:44
PROVIDERS: Emergency Provider Emergency Medicine; PCP Physician Assistant
DX: N39.0 Urinary tract infection, site not specified (principal); N76.0 Acute vaginitis; I10 Essential (primary) hypertension; E11.9 Type 2 diabetes mellitus without complications; Z79.4 Long term (current) use of insulin
CPT/HCPCS: 81025; 99283; 81003; 81015

== ENCOUNTER 2020-01-20 20:32 | Emergency (ER) | payer MEDICARE, MEDICAID, SELFPAY ==
[2020-01-20 20:39] VITALS: BP 152/84; PULSE 96; RESP 18; TEMP 36.7; O2SAT 95
--- NOTE | 2020-01-20 21:00 | ED.GENADUL_ITS ---
Discharge Plan Disposition Patient Disposition: HOME Condition: Stable Discharge Details Chief Complaint: Headache Clinical Impression: Cephalalgia Primary Care Provider: Margarita Cuenca ED Provider: Parvez Mcdaniel Home Meds and New Rx's Prescriptions: No Action acetaminophen [Tylenol] 325 MG tablet 650 mg PO PRN PRNRF: 0 Insulin Glargine,Hum.rec.anlog [Lantus] 100 UNIT/ML Vial 24 units SQ HS RF: 0 Discharge Instructions Instructions: General Headache (ED) Additional Instructions: Piys-fby-cxidlds medications as directed for symptomatic control. Please watch for new or worsening symptoms and return to the ER for any concerns. I do recommend reaching out to your primary care provider and neurology team tomorrow to discuss outpatient options. Medical Decision Making 34-year-old female who reports a history of chronic migraines, presents with migraine for the past 2 weeks. She reports this is very typical of her chronic migraine. Denies recent illness or trauma. Reports the migraine came on progressively, denies thunderclap. She appears well, nontoxic. She is afebrile, and neurologically intact. No meningeal signs. She is only tried Tylenol at home. She does report mild nausea. Will trial IV Toradol and Reglan and reassess. Patient is comfortable with this plan Patient received Toradol and Reglan. IV fluids still infusing. Upon reevaluation patient reports that she is feeling significantly better, would prefer not to wait for the IV fluid to be completed. She is requesting discharge. She appears well, nontoxic and remains neurologically intact while under my care. No vomiting while under my care. Patient is able to ambulate steadily. We discussed the importance of outpatient follow-up with her primary care and/or neurology team. Encouraged to return to the ER for new or evolving symptoms Medical Records Medical records reviewed: Yes I reviewed the patient's medical records. HPI General Mode of arrival: ambulatory . Date/Time Provider Initiated Documentation: 01/20/20 20:33 . Limitations to Documentation: no limitations . Information obtained by: patient . HPI Narrative: This is a 34-year-old female with history of diabetes, hypertension, rheumatoid arthritis, chronic migraines, presenting for what she describes as a typical migraine that has been going on for approximately 2 weeks. She reports in the past she has been seen by her [facility] provider and a neurology team. She currently is not prescribed any medications for her migraines and only takes [id number] Tylenol. She reports the pain is moderate, came on progressively, and denies recent illness or trauma. Given the circumstances in the community, primary care providers seeing patients on a limited basis, she decided to come to the ER for further evaluation. She reports nausea but no vomiting. Denies fever, visual changes, neck pain, chest pain, shortness of breath, abdominal pain, numbness, tingling, weakness, incontinence. The migraine is moderate in nature and global. Denies thunderclap headache Related Data Home Medications Medication Instructions Recorded Confirmed acetaminophen [Tylenol] 650 mg PO PRN PRN 05/15/17 01/20/20 Insulin Glargine,Hum.rec.anlog 24 units SQ HS 05/10/18 11/22/19 [Lantus] Allergies Allergy/AdvReac Type Severity Reaction Status Date / Time Sulfa (Sulfonamide Allergy Other (See Unverified 01/20/20 20:44 Antibiotics) Comment) Penicillins AdvReac Intermediate Hives Unverified 01/20/20 20:44 guaifenesin [From Robitussin] AdvReac Mild Nausea Unverified 01/20/20 20:44 General Stated Complaint: Headache JUDITH: 3 Review of Systems Constitutional Constitutional: Denies fatigue, Denies fever(s), Reports headache(s) and Denies weakness Eyes Eyes: Denies change in vision and Denies loss of vision ENT Ears, Nose, Mouth, and Throat: Reports headache(s) and Denies sore throat Cardiovascular Cardiovascular: Denies chest pain Respiratory Respiratory: Denies cough Gastrointestinal Gastrointestinal: Denies abdominal pain, Denies diarrhea, Reports nausea and Denies vomiting Genitourinary Genitourinary: Denies dysuria Musculoskeletal Musculoskeletal: Denies myalgias, Denies numbness and Denies tingling Integumentary/Breasts Skin/Breast: Denies rash Neurologic Neurologic: Reports headache(s), Denies loss of vision, Denies numbness, Denies other visual disturbances, Denies tingling, Denies paresthesias and Denies weakness Endocrine Endocrine: Denies fatigue [facility] Medical History Diabetes (Chronic) HTN (hypertension) (Chronic) Rheumatoid arthritis (Chronic) Surgical History H/O section (Chronic) H/O heart valve replacement with bioprosthetic valve (Acute) History of bilateral tubal ligation (Acute) History of hernia repair (Chronic) Social History Smoking/Tobacco Use Status: Current every day Tobacco Type: e-cigarettes Alcohol Intake: current Alcohol Intake frequency: a few times a month Drug use: Never Substance use type: does not use Do you feel safe at home: Yes Do you feel safe in your relationship?: Yes Exam Const General: cooperative, healthy appearing, comfortable and no acute distress Orientation: alert, awake and oriented x3 HENMT Head: normal to inspection, no palpable skull fracture, normocephalic and atraumatic Ears: external ears normal, TM's normal bilaterally and EAC's normal Mouth: moist mucous membranes Throat: posterior oropharynx normal Eyes General: appearance normal, both eyes and all related structures Alignment and Position: alignment normal Periorbital: periorbital findings normal Eyelids: eyelids normal Conjunctivae: conjunctivae normal Sclera: sclerae normal Cornea: corneas normal Pupils: PERRL EOM: EOM intact bilaterally Direct ophthalmoscopy: normal light reflex Neck Neck: normal visual inspection, full ROM, no lymphadenopathy, no meningeal signs, trachea midline and supple Resp Effort & Inspection: normal respiratory effort and able to speak in complete sentences Auscultation: clear to auscultation bilaterally Cardio Rate: regular rate Rhythm: regular rhythm GI Palpation: soft and nontender Back/Spine/Pelvis Back: No back tenderness Skin General skin exam: no rashes or lesions noted Neuro General: patient alert, patient awake, patient oriented x3, moves all extremities and no focal motor deficits Cranial Nerves: CN's II-XI intact bilaterally Cognition: normal cognition Speech: speech normal Gait: normal gait Motor: muscle tone normal throughout and strength 5/5 throughout Sensory Exam: no sensory deficits noted Extrem General: normal to inspection, full ROM and capillary refill normal Psych Appearance: grossly normal Mental Status: mental status grossly normal Course Vital Signs Vital signs: Vital Signs Temperature 36.7 C 01/20/20 20:39 Pulse 96 H 01/20/20 20:39 Respiratory Rate 18 01/20/20 20:39 Blood Pressure 152/84 H 01/20/20 20:39 Pulse Oximetry 95 01/20/20 20:39 Temperature 36.7 C 01/20/20 20:39 Temperature Source Skin 01/20/20 20:39 Pulse 96 H 01/20/20 20:39 Respiratory Rate 18 01/20/20 20:39 Respiratory Effort Non-Labored 01/20/20 20:41 Blood Pressure 152/84 H 01/20/20 20:39 Blood Pressure Position Sitting 01/20/20 20:39 Pulse Oximetry 95 01/20/20 20:39 Oxygen Delivery Method Room Air 01/20/20 20:39 Oxygen Flow Rate 0 01/20/20 20:39 Pain Level 7 01/20/20 20:43
[2020-01-20] MEDS: Normal Saline 1,000 ML 1000 ML IV (21:15)
[2020-01-20] MEDS: Ketorolac 30 MG/ML VIAL IVP (21:17)
[2020-01-20] MEDS: Metoclopramide 10 MG/2 ML VIAL IVP (21:17)
[2020-01-20 21:45] VITALS: BP 135/65; PULSE 80; RESP 16; TEMP 36.6; O2SAT 95
--- NOTE | 2020-01-20 21:48 | NUR.NOTE ---
Pt reports feeling better after meds. Requesting IV dc and to go home. JAMA Serra aware.
== END 2020-01-20 21:48 | disposition home or self-care (01) ==
PROVIDERS: Emergency Provider Physician Assistant; PCP Physician Assistant
DX: G43.909 Migraine, unspecified, not intractable, without status migrainosus (principal); R11.0 Nausea; E11.9 Type 2 diabetes mellitus without complications; Z79.4 Long term (current) use of insulin; I10 Essential (primary) hypertension
CPT/HCPCS: 96374; 96375; 99284; 99283; J1885; J2765

== ENCOUNTER 2020-02-13 17:55 | Emergency (ER) | payer MEDICARE, MEDICAID, SELFPAY ==
[2020-02-13 17:59] VITALS: BP 138/108; PULSE 94; RESP 16; TEMP 36.8; O2SAT 99
--- NOTE | 2020-02-13 17:59 | ED.GENADUL_ITS ---
Discharge Plan Disposition Patient Disposition: HOME Condition: Stable Discharge Details Chief Complaint: DentalOral Clinical Impression: Pain, dental, Dental caries, Hypertension Primary Care Provider: Margarita Cuenca ED Provider: Kathie Montes Home Meds and New Rx's Prescriptions: New clindamycin HCl 150 mg capsule 450 mg PO TID 7 Days Qty: 63 RF: 0 (DME) blood pressure monitor Kit See Rx Instructions .ROUTE .MEDSUPPLY Qty: 1 RF: 0 fluconazole [Diflucan] 150 mg tablet 150 mg PO ONCE PRN (Reason: yeast infection) Qty: 1 RF: 0 Continued acetaminophen [Tylenol] 325 MG tablet 650 mg PO PRN PRNRF: 0 Insulin Glargine,Hum.rec.anlog [Lantus] 100 UNIT/ML Vial 24 units SQ HS RF: 0 Discharge Instructions Instructions: Dental Caries (ED), Hypertension (ED), Toothache (ED) Additional Instructions: Drink plenty of fluids and get plenty of rest. Take the antibiotics until finished. Continue to alternate Tylenol and Motrin for pain. Call the dentist to schedule a follow-up appointment for reevaluation once the dental office opens again. Follow-up with your primary care doctor for further evaluation of your high blood pressure. Return to the emergency department if you develop any worsening or new concerning symptoms such as fever, difficulty swallowing, breathing or any other concerns. Discharge Data Discharge Date/Time-TO BE ENTERED AT DEPARTURE: 02/13/20 18:30 Discharge Physician: Kathie Montes Medical Decision Making 1805 -- 34yo M who presents to the ED w/ a c/o diffuse dental pain x 1 month. Afebrile. Appears nontoxic. Speaking in full sentences. Diffuse dental caries and poor dentition throughout. Normal oropharynx. No lymphadenopathy, trismus, drooling or submandibular swelling. No dental abscess noted. As patient has a history of valve replacement, will cover with antibiotics for possible dental infection or sinusitis. She is taking Macrobid for UTI. She carranza s a history of tubal ligation. Will give a prescription for clindamycin. She was also given a prescription for Diflucan as she has a history of yeast infection with antibiotics. She is advised to call her dentist for follow-up when the office opens. Usual and customary return precautions given prior to discharge. Medical Records Medical records reviewed: Yes I reviewed the patient's medical records. HPI General Mode of arrival: ambulatory . Date/Time Provider Initiated Documentation: 02/13/20 17:56 . Limitations to Documentation: no limitations . Information obtained by: patient . HPI Narrative: Pt is a 34yo F who presents to the ED w/ a c/o diffuse dental pain for the past month. She has a history of chronic dental pain and dental extractions. Denies any new injury, fever, sore throat, cough or shortness of breath. She is already taking Macrobid for a urinary tract infection. She states she has not seen a dentist for a couple years. Related Data Home Medications Medication Instructions Recorded Confirmed acetaminophen [Tylenol] 650 mg PO PRN PRN 05/15/17 01/20/20 Insulin Glargine,Hum.rec.anlog 24 units SQ HS 05/10/18 11/22/19 [Lantus] blood pressure monitor #1 each 02/13/20 clindamycin HCl 450 mg PO TID 7 Days #63 cap 02/13/20 fluconazole [Diflucan] 150 mg PO ONCE PRN #1 tab 02/13/20 Previous Rx's Medication Instructions Recorded blood pressure monitor #1 each 02/13/20 clindamycin HCl 450 mg PO TID 7 Days #63 cap 02/13/20 fluconazole [Diflucan] 150 mg PO ONCE PRN #1 tab 02/13/20 Allergies Allergy/AdvReac Type Severity Reaction Status Date / Time Sulfa (Sulfonamide Allergy Other (See Unverified 01/20/20 20:44 Antibiotics) Comment) Penicillins AdvReac Intermediate Hives Unverified 01/20/20 20:44 guaifenesin [From Robitussin] AdvReac Mild Nausea Unverified 01/20/20 20:44 General JUDITH: 3 Review of Systems All systems reviewed & are unremarkable except as noted in HPI and below ENT Ears, Nose, Mouth, and Throat: Reports dental pain [facility] Social History Smoking/Tobacco Use Status: Current every day Tobacco Type: e-cigarettes Alcohol Intake: current Alcohol Intake frequency: a few times a month Drug use: Never Substance use type: does not use Do you feel safe at home: Yes Do you feel safe in your relationship?: Yes Exam Const General: cooperative, healthy appearing and no acute distress [facility] Head: normal to inspection Ears: hearing grossly normal bilaterally, external ears normal and TM's normal bilaterally General nose exam: external nose normal Face and sinus: normal facial exam and no sinus tenderness Mouth: oral mucosae normal Teeth and gingiva: caries, poor dentition (throughout) and other (tenderness to palpation upper and lower anterior teeth) Throat: posterior oropharynx normal Eyes General: appearance normal, both eyes and all related structures Neck Neck: normal visual inspection, no lymphadenopathy, no meningeal signs, trachea midline, supple, no anterior neck swelling and No submandibular swelling Resp Effort & Inspection: normal respiratory effort and able to speak in complete sentences Cardio Rate: regular rate Skin General skin exam: no rashes or lesions noted Neuro General: patient alert, patient awake and patient oriented x3 Motor: muscle tone normal throughout Extrem General: normal to inspection and full ROM Psych Appearance: grossly normal Affect: normal affect
[2020-02-13 18:31] VITALS: BP 138/108; PULSE 94; RESP 16; TEMP 36.8; O2SAT 99
== END 2020-02-13 18:30 | disposition home or self-care (01) ==
PROVIDERS: Emergency Provider Physician Assistant; PCP Physician Assistant
DX: K02.9 Dental caries, unspecified; I10 Essential (primary) hypertension; Z95.4 Presence of other heart-valve replacement; Z86.19 Personal history of other infectious and parasitic diseases; R68.84 Jaw pain
CPT/HCPCS: 99283

== ENCOUNTER 2020-02-19 17:17 | Emergency (ER) | payer MEDICARE, MEDICAID, SELFPAY ==
--- NOTE | 2020-02-19 17:20 | ED.GENADUL_ITS ---
Discharge Plan Disposition Patient Disposition: HOME Condition: Good Discharge Details Chief Complaint: Palpitatns Clinical Impression: Dehydration, Heart palpitations Primary Care Provider: Margarita Cuenca ED Provider: Nando Schwab Home Meds and New Rx's Prescriptions: No Action clindamycin HCl 150 mg capsule 450 mg PO TID 7 Days Qty: 63 RF: 0 (DME) blood pressure monitor Kit See Rx Instructions .ROUTE .MEDSUPPLY Qty: 1 RF: 0 fluconazole [Diflucan] 150 mg tablet 150 mg PO ONCE PRN (Reason: yeast infection) Qty: 1 RF: 0 acetaminophen [Tylenol] 325 MG tablet 650 mg PO PRN PRNRF: 0 Insulin Glargine,Hum.rec.anlog [Lantus] 100 UNIT/ML Vial 24 units SQ HS RF: 0 Discharge Instructions Instructions: Heart Palpitations (ED), Dehydration (ED) Additional Instructions: At this time your work-up shows no abnormalities for your heart. Please drink plenty of water at home, and decrease your Mountain Dew intake. If you notice any worsening of your symptoms, or any new symptoms such as vomiting, diarrhea, fever, chills, shortness of breath, chest pain, numbness, weakness, or fainting , please return immediately to the emergency department for reevaluation. Please follow up with your primary care provider as soon as possible for reassessment and reevaluation. As always, it was a pleasure participating in your medical care today. Referrals: Margarita Cuenca [Primary Care Provider] - Medical Decision Making This is a 32-year-old female with a past medical history of DiGeorge's syndrome, heart valve replacement, tubal ligation, diabetes, and chronic tobacco abuse, who presents today for evaluation of palpitations. Patient states that today she has not been drinking any water and is only been drinking Mountain Dew, she took her clindamycin which she is currently taking for dental infection on an empty stomach and had a few episodes of vomiting and then subsequent mild diarrhea both of which have resolved. She has not otherwise been drinking much at all throughout the day. Today she took a nap and when she woke up she felt a small amount of chest pressure, nonpleuritic, only worsened with movement, as well as felt mild palpitations. She still feels the palpitations now with her current rate of 90. She denies any current chest pain, shortness of breath, pleuritic chest pain, nausea, vomiting or diarrhea currently. She states that she otherwise feels fine but wants to get her heart checked out. Patient denies any syncope, she denies any tearing or ripping sensation in her chest whatsoever, and has no pain at this time. Patient has no other complaints at this time. No other modifying factors. Denies PE risk factors such as recent long car rides, immobilization, recent surgery, prior history of DVT or PE, family history of PE or DVT, morbid obesity, exogenous estrogen and smoking, hemoptysis, history of cancer. Physical exam demonstrates no significant abnormalities, patient's heart rate is notably stable at this time. EKG is consistent with prior EKGs. Mucous membranes are notably dry. Suspect that her symptoms although subjective are likely secondary to mild dehydration from the vomiting from taking clindamycin on an empty stomach, as well as drinking no water, and only drinking some Mountain Dew today. We will rehydrate, monitor for acute electrolyte abnormality with her chronic conditions, and reassess. 6:25 PM Patient's laboratory work-up has returned, no significant abnormalities. No evidence of white count, left shift, bandemia. She shows no clinical evidence of bacteremia. Electrolytes are normal, renal function stable. Bicarb normal. Magnesium minimally low at 1.7, glucose 150. Troponin normal, EKG unchanged. Lipase normal. Continue threat monitoring analyst here in the ED demonstrates no evidence of abnormality, no signs of PVCs. At this time I feel the patient symptoms likely secondary to mild dehydration from not drinking water and just drinking Mountain Dew, combined with the caffeine for Mountain Dew. With no evidence of acute life-threatening etiology at this time, and her signs and symptoms clinically inconsistent with a PE, dissection, pneumonia or other abnormality I do feel that she can be discharged home. Patient has been rehydrated with 1 L of normal saline. I did contact the patient's mother, Yamini Bentley, she agrees with the plan. Discussed red flags which to return. Recommend drinking plenty fluids, and avoiding caffeine. I have extensively reviewed the treatment plan and discharge instructions with the patient. I have addressed all patient concerns at this time. The patient was made aware of what symptoms to monitor for that would warrant a return to the emergency department. Discussed the plan with the patient, they demonstrate verbal understanding and agreement with our assessment and plan at this time. EKG 17: 30 Rate 79, CA 146, QT 434, sinus rhythm, right bundle branch block, no evidence of STEMI. EKG from 09/07/2018 demonstrates no acute changes whatsoever. HPI General Date/Time Provider Initiated Documentation: 02/19/20 17:19 . HPI Narrative: This is a 32-year-old female with a past medical history of DiGeorge's syndrome, heart valve replacement, tubal ligation, diabetes, and chronic tobacco abuse, who presents today for evaluation of palpitations. Patient states that today she has not been drinking any water and is only been drinking Mountain Dew, she took her clindamycin which she is currently taking for dental infection on an empty stomach and had a few episodes of vomiting and then subsequent mild diarrhea both of which have resolved. She has not otherwise been drinking much at all throughout the day. Today she took a nap and when she woke up she felt a small amount of chest pressure, nonpleuritic, only worsened with movement, as well as felt mild palpitations. She still feels the palpitations now with her current rate of 90. She denies any current chest pain, shortness of breath, pleuritic chest pain, nausea, vomiting or diarrhea currently. She states that she otherwise feels fine but wants to get her heart checked out. Patient denies any syncope, she denies any tearing or ripping sensation in her chest whatsoever, and has no pain at this time. Patient has no other complaints at this time. No other modifying factors. Denies PE risk factors such as recent long car rides, immobilization, recent surgery, prior history of DVT or PE, family history of PE or DVT, morbid obesity, exogenous estrogen and smoking, hemoptysis, history of cancer. Related Data Home Medications Medication Instructions Recorded Confirmed acetaminophen [Tylenol] 650 mg PO PRN PRN 05/15/17 02/19/20 Insulin Glargine,Hum.rec.anlog 24 units SQ HS 05/10/18 02/19/20 [Lantus] blood pressure monitor #1 each 02/13/20 clindamycin HCl 450 mg PO TID 7 Days #63 cap 02/13/20 02/19/20 fluconazole [Diflucan] 150 mg PO ONCE PRN #1 tab 02/13/20 02/19/20 Previous Rx's Medication Instructions Recorded blood pressure monitor #1 each 02/13/20 clindamycin HCl 450 mg PO TID 7 Days #63 cap 02/13/20 fluconazole [Diflucan] 150 mg PO ONCE PRN #1 tab 02/13/20 Allergies Allergy/AdvReac Type Severity Reaction Status Date / Time Sulfa (Sulfonamide Allergy Other (See Unverified 02/19/20 17:30 Antibiotics) Comment) Penicillins AdvReac Intermediate Hives Unverified 02/19/20 17:30 guaifenesin [From Robitussin] AdvReac Mild Nausea Unverified 02/19/20 17:30 General JUDITH: 4 Review of Systems All systems reviewed & are unremarkable except as noted in HPI and below PFSH Social History Smoking/Tobacco Use Status: Current every day Tobacco Type: e-cigarettes Alcohol Intake: current Alcohol Intake frequency: a few times a month Drug use: Never Substance use type: does not use Do you feel safe at home: Yes Do you feel safe in your relationship?: Yes Exam Narrative Exam Narrative: 1.Const: Well-nourished, Well-developed, appearing stated age 2.Eyes: PERRL, no conjunctival injection, and symmetrical lids. 3.ENT: Atraumatic external nose and ears. Notably dry MM. Neck: Symmetric, trachea midline, No thyromegaly. 4.CVS: +S1/S2, Peripheral pulses 2+ and equal in all extremities. Brisk capillary refill in all extremities. 5.RESP: Unlabored respiratory effort. Clear to auscultation bilaterally. No wheezes rales or rhonchi 6.GI: Soft, Nontender/Nondistended, No hepatosplenomegaly. No guarding or rebound. 7.MSK: Normocephalic/Atraumatic, Extremities w/o deformity or ttp No cyanosis or clubbing, Normal movement of all extremities, no calf tenderness. 8.Skin: Warm, Dry. No rashes or lesions. 9.Neuro: cooperative education director II-XII grossly intact. Sensation grossly intact, no focal neurologic deficits. 10.Psych: (AAO) x3. Appropriate mood and affect
[2020-02-19 17:23] VITALS: BP 171/85; PULSE 84; RESP 21; TEMP 36.6; O2SAT 98
[2020-02-19 17:52] LABS: Abs Immature Grans 0.02 k/cumm (0.0-0.09); Absolute Basophil Count 0.02 k/cumm (0.0-0.2); Absolute Eosinophil Count 0.32 k/cumm (0.0-0.7); Absolute Lymphocyte Count 1.91 k/cumm (1.2-3.4); Absolute Monocyte Count 0.45 k/cumm (0.11-0.7); Absolute Neutrophil Count 5.73 k/cumm (1.2-6.7); Basophils % 0.2; Eosinophils % 3.8; HCT 41.3 % (36.0-46.0); HGB 13.8 g/dL (12.0-15.5); Immature Grans % 0.2 %; Lymphocytes % 22.6; Mean Corp. HGB Concentration 33.4 g/dL (32.0-36.0); Mean Corpuscular Hemoglobin 28.9 pg (27.0-33.0); Mean Corpuscular Volume 86.6 fL (80-95); Mean Platelet Volume 10.6 fL (8.0-11.0); Monocytes % 5.3; Neutrophils % 67.9; Platelet Count 167 x1000/uL (130-400); RBC 4.77 m/cumm (4.00-5.20); RBC Distribution Width 13.6 % (11.7-14.6); White Blood Cell Count 8.45 k/cumm (4.4-10.8)
[2020-02-19 18:08] LABS: INR 1.1 (0.9-1.1); Prothrombin Time 10.6 sec (9.3-11.0)
[2020-02-19 18:09] LABS: ALT 28 U/L (14-59); AST 23 U/L (15-37); Albumin 3.4 g/dL (3.4-5.0); Alkaline Phosphatase 81 U/L (46-116); Anion Gap 6.4 mmol/L (3-11); BUN 6 mg/dL (7-18); Bilirubin, Total 0.3 mg/dL (0.2-1.0); CO2 29.6 mmol/L (21.0-32.0); CREATININE 0.69 mg/dL (0.55-1.02); Calcium 8.7 mg/dL (8.5-10.1); Chloride 101 mmol/L (98-107); Glucose 150 mg/dL (74-106); Potassium 3.7 mmol/L (3.5-5.1); Sodium 137 mmol/L (136-145); Total Protein 7.5 g/dL (6.4-8.2)
[2020-02-19 18:11] LABS: Lipase 70 U/L (73-393); Magnesium 1.7 mg/dL (1.8-2.4)
[2020-02-19 18:12] LABS: Troponin I < 0.05 ng/Ml (<0.06)
[2020-02-19] MEDS: Normal Saline 1,000 ML 1000 ML IV (18:38)
--- NOTE | 2020-02-19 18:39 | NUR.NOTE ---
Nursing Note: NS infusion started at 1745. Complete at 1834
[2020-02-19 18:42] VITALS: BP 151/75; PULSE 79; RESP 16; TEMP 36.7; O2SAT 93
== END 2020-02-19 18:45 | disposition home or self-care (01) ==
PROVIDERS: Emergency Provider Student in an Organized Health Care Education/Training Program; PCP Physician Assistant
DX: R00.2 Palpitations (principal); E86.0 Dehydration; E11.9 Type 2 diabetes mellitus without complications; Z79.4 Long term (current) use of insulin
CPT/HCPCS: 80053; 83690; 93005; 96360; 99284; 83735; 84484; 85025; 85610; 85730; 93010

== ENCOUNTER 2020-07-19 19:20 | Emergency (ER) | payer MEDICARE, MEDICAID, SELFPAY ==
[2020-07-19 19:23] VITALS: BP 154/81; PULSE 95; RESP 20; TEMP 36.3; O2SAT 96
--- NOTE | 2020-07-19 19:30 | DI.RAD_ITS ---
EXAM: XR PORTABLE CHEST AP CLINICAL HISTORY: cough, congestion TECHNIQUE: 2D digital imaging was performed. COMPARISON: CR XR CHEST 2V PA LATERAL from 10/19/2018 FINDINGS: MEDIASTINUM: Normal. HEART: Moderate cardiomegaly. Previous cardiac valve replacement. PULMONARY VASCULATURE: Normal. LUNGS: Clear. PLEURAL SPACE: No pleural effusion or pneumothorax. BONE:Within normal limits for the patient's age. OTHER FINDINGS:Normal. IMPRESSION: No acute pulmonary findings. DATA REPOSITORY: RADIATION DOSE DELIVERED:
--- NOTE | 2020-07-19 19:43 | ED.GENADUL_ITS ---
Discharge Plan Disposition Patient Disposition: HOME Condition: Fair Discharge Details Clinical Impression: Acute viral syndrome Primary Care Provider: Margarita Cuenca ED Provider: Kimberley Temple Home Meds and New Rx's Prescriptions: Continued (DME) blood pressure monitor Kit See Rx Instructions .ROUTE .MEDSUPPLY Qty: 1 RF: 0 fluconazole [Diflucan] 150 mg tablet 150 mg PO ONCE PRN (Reason: yeast infection) Qty: 1 RF: 0 acetaminophen [Tylenol] 325 MG tablet 650 mg PO PRN PRNRF: 0 Insulin Glargine,Hum.rec.anlog [Lantus] 100 UNIT/ML Vial 24 units SQ HS RF: 0 clindamycin HCl 150 mg capsule 450 mg PO TID RF: 0 albuterol sulfate 90 mcg/actuation HFA aerosol inhaler 2 puff INHALATION Q6H PRNRF: 0 glipizide 5 mg tablet 5 mg PO DAILY RF: 0 sodium chloride [Saline Nasal] 0.65 % aerosol,spray 2 spray INTRANASAL BID RF: 0 Discharge Instructions Instructions: Viral Syndrome (ED) Additional Instructions: Drink at least 6 to 8 glasses of water daily to stay well-hydrated Can use acetaminophen and/or ibuprofen if needed for aches pains headache fever You should remain under quarantine until the results of your COVID-19 test and resolution of your symptoms Follow-up with your primary care provider as needed Stand Alone Forms: PENDING COVID-19 TESTING Referrals: Margarita Cuenca [Primary Care Provider] - (As needed or sooner for new or worsening symptoms) Medical Decision Making Symptoms most consistent with viral syndrome versus seasonal allergies. Will obtain CBC basic metabolic panel and COVID-19 testing. Chest x-ray. Physical exam is benign with O2 sats in the mid to high 90s on room air and clear breath sounds. She is able to take good oral intake Labs reviewed and are on remarkable. Chest x-ray shows no evidence of pneumonia. We will discharge home to quarantine pending COVID-19 testing results Medical Records Medical records reviewed: Yes I reviewed the patient's medical records. Lab Data Lab results reviewed: Yes I reviewed the patient's lab results. HPI General Date/Time Provider Initiated Documentation: 07/19/20 19:28 . Limitations to Documentation: no limitations . Information obtained by: patient . HPI Narrative: This is a 32-year-old female with a past medical history of DiGeorge's syndrome, heart valve replacement, tubal ligation, diabetes, and chronic tobacco abuse, who has had a weeks symptoms of cough, shortness of breath, nasal congestion, ear fullness. denies fevers, nausea or vomiting. no recent travel or sick contacts. no known covid exposure. Related Data Home Medications Medication Instructions Recorded Confirmed acetaminophen [Tylenol] 650 mg PO PRN PRN 05/15/17 07/19/20 Insulin Glargine,Hum.rec.anlog 24 units SQ HS 05/10/18 07/19/20 [Lantus] blood pressure monitor #1 each 02/13/20 fluconazole [Diflucan] 150 mg PO ONCE PRN #1 tab 02/13/20 07/19/20 albuterol sulfate 2 puff INHALATION Q6H PRN 07/19/20 07/19/20 clindamycin HCl 450 mg PO TID 07/19/20 07/19/20 glipizide 5 mg PO DAILY 07/19/20 07/19/20 sodium chloride [Saline Nasal] 2 spray INTRANASAL BID 07/19/20 07/19/20 Previous Rx's Medication Instructions Recorded blood pressure monitor #1 each 02/13/20 fluconazole [Diflucan] 150 mg PO ONCE PRN #1 tab 02/13/20 Allergies Allergy/AdvReac Type Severity Reaction Status Date / Time Sulfa (Sulfonamide Allergy Other (See Unverified 02/19/20 17:30 Antibiotics) Comment) Penicillins AdvReac Intermediate Hives Unverified 02/19/20 17:30 guaifenesin [From Robitussin] AdvReac Mild Nausea Unverified 02/19/20 17:30 General Stated Complaint: Headache JUDITH: 3 Review of Systems All systems reviewed & are unremarkable except as noted in HPI and below Constitutional Constitutional: Denies fever(s) ENT Ears, Nose, Mouth, and Throat: Denies vertigo and Denies dizziness Cardiovascular Cardiovascular: Denies chest pain Respiratory Respiratory: Reports chest congestion and Reports cough Gastrointestinal Gastrointestinal: Denies abdominal pain Neurologic Neurologic: Denies vertigo and Denies dizziness PFSH Medical History (Updated 07/19/20 @ 20:13 by Kimberley Temple NP) Diabetes HTN (hypertension) Hypertension Rheumatoid arthritis Surgical History H/O section H/O heart valve replacement with bioprosthetic valve History of bilateral tubal ligation History of hernia repair Social History Smoking/Tobacco Use Status: Current every day Tobacco Type: cigarettes and e- cigarettes Alcohol Intake: current Alcohol Intake frequency: a few times a month Drug use: Occasionally Substance use type: marijuana Do you feel safe at home: Yes Do you feel safe in your relationship?: Yes Exam Const General: cooperative Nutritional Appearance: obese Orientation: alert, awake and oriented x3 HENMT Head: normal to inspection, normocephalic and atraumatic Teeth and gingiva: poor dentition (Multiple missing teeth and extensive decay) Resp Effort & Inspection: normal respiratory effort Auscultation: clear to auscultation bilaterally, no rhonchi and no wheezes Cardio Rate: regular rate Rhythm: regular rhythm Neuro General: patient alert, patient awake and patient oriented x3 Cranial Nerves: CN's II-XI intact bilaterally Course Vital Signs Vital signs: Vital Signs Temperature 36.3 C L 07/19/20 19:23 Pulse 95 H 07/19/20 19:23 Respiratory Rate 20 07/19/20 19:23 Blood Pressure 154/81 H 07/19/20 19:23 Pulse Oximetry 96 07/19/20 19:23 Temperature 36.3 C L 07/19/20 19:23 Temperature Source Skin 07/19/20 19:23 Pulse 95 H 07/19/20 19:23 Respiratory Rate 20 07/19/20 19:23 Respiratory Effort 07/19/20 19:28 Blood Pressure 154/81 H 07/19/20 19:23 Pulse Oximetry 96 07/19/20 19:23 Pain Level 4 07/19/20 19:39 Comment 07/19/20 19:23
[2020-07-19 20:21] LABS: Abs Immature Grans 0.05 10^3/uL (0.0-0.06); Absolute Basophil Count 0.03 10^3/uL (0.0-0.2); Absolute Lymphocyte Count 1.69 10^3/uL (1.2-3.4); Absolute Monocyte Count 0.48 10^3/uL (0.1-0.8); Absolute Neutrophil Count 7.21 10^3/uL (1.2-6.7); Basophils % 0.3; Eosinophils % 3.1; HCT 42.1 % (36.0-46.0); HGB 13.4 g/dL (11.2-15.7); Immature Grans % 0.5; Lymphocytes % 17.3; MCH 27.7 pg (27.0-33.0); MCHC 31.8 % (32.0-36.0); MPV 10.8 fL (8.0-11.0); Monocytes % 4.9; Neutrophils % 73.9; Nucleated RBC 0 %; Platelet Count 211 10^3/uL (130-400); RBC 4.84 10^6/uL (3.93-5.22); RDW 13.2 % (11.7-14.6); RDW-SD 41.5 fL; WBC 9.76 10^3/uL (4.4-10.8)
[2020-07-19 20:30] LABS: Anion Gap 10.2 mmol/L (3-11); BUN 8 mg/dL (7-18); CO2 26.8 mmol/L (21.0-32.0); CREATININE 0.87 mg/dL (0.55-1.02); Calcium 8.8 mg/dL (8.5-10.1); Chloride 99 mmol/L (98-107); Glucose 300 mg/dL (74-106); Potassium 3.5 mmol/L (3.5-5.1); Sodium 136 mmol/L (136-145)
[2020-07-19 21:20] VITALS: BP 132/72; PULSE 78; RESP 18; O2SAT 95
[2020-07-19] MEDS: Lidocaine 2% Jelly 6 ML SYR TP (21:24)
--- NOTE | 2020-07-19 21:26 | DI.VRAD_ITS ---
PROCEDURE INFORMATION: Exam: XR Chest, 1 View Exam date and time: 07/19/2020 9:18 PM Age: 34 years old Clinical indication: Cough and other: Congestion; Patient HX: Cough, congestion TECHNIQUE: Imaging protocol: XR of the chest Views: 1 view. COMPARISON: CR XR CHEST 2V PA LATERAL 10/19/2018 8:56 PM FINDINGS: Lungs: Clear lungs. No pleural disease. Pleural space: See Lungs finding. Heart/Mediastinum: Moderate cardiomegaly. Previous valve replacement. Bones/joints: Unremarkable. IMPRESSION: 1. No acute lung infiltrates or edema. 2. No pleural effusions. 3. Cardiomegaly. Previous open-heart valve replacement surgery. Dictated and Authenticated by: Aron Sloan MD. Ordering:KENDRA Chu MD
[2020-07-19 21:43] VITALS: BP 132/72; PULSE 78; RESP 18; O2SAT 95
[2020-07-20 13:06] LABS: COVID-19 RT-PCR UVMMC Result Negative (Negative)
--- NOTE | 2020-07-30 11:29 | NUR.NOTE ---
Nursing Note: gave negative result of COVID test to pt over the phone after verbal verification of identity at 1130.
== END 2020-07-19 21:45 | disposition home or self-care (01) ==
PROVIDERS: Emergency Provider Nurse Practitioner Acute Care; PCP Physician Assistant
DX: R05 Cough (principal); R06.02 Shortness of breath; R09.81 Nasal congestion; B34.9 Viral infection, unspecified; Z03.818 Encounter for observation for suspected exposure to other biological agents ruled out; I10 Essential (primary) hypertension; E11.9 Type 2 diabetes mellitus without complications; Z79.4 Long term (current) use of insulin; F17.210 Nicotine dependence, cigarettes, uncomplicated
CPT/HCPCS: 36415; 80048; 99284; U0003; 71045; 85025

== ENCOUNTER 2021-05-06 20:27 | Emergency (ER) | payer OTHER, MEDICAID, SELFPAY ==
[2021-05-06] VITALS (25 sets, daily range): BP systolic 127–153; BP diastolic 67–96; PULSE 95–124; RESP 18; TEMP 36.6; O2SAT 90–98
--- NOTE | 2021-05-06 20:53 | ED.GENADUL_ITS ---
Discharge Plan Disposition Patient Disposition: HOME Condition: Stable Discharge Details Clinical Impression: Pyelonephritis, Dehydration, Hypokalemia, Hypocalcemia, Hypomagnesemia Primary Care Provider: Margarita Cuenca ED Provider: Charley Mak Home Meds and New Rx's Prescriptions: New ciprofloxacin HCl 500 mg tablet 500 mg PO BID 6 Days Qty: 12 RF: 0 promethazine 25 mg tablet 25 mg PO Q6H PRN (Reason: nausea and vomiting) Qty: 7 RF: 0 Continued (DME) blood pressure monitor Kit See Rx Instructions .ROUTE .MEDSUPPLY Qty: 1 RF: 0 simvastatin 10 mg Tablet 10 mg PO DAILY RF: 0 lisinopril 5 mg Tablet 5 mg PO DAILY RF: 0 Trulicity 1.5 mg/0.5 mL Pen Injector 1.5 mg SUBCUT QWEEK RF: 0 acetaminophen [Tylenol] 325 MG tablet 650 mg PO PRN PRNRF: 0 albuterol sulfate 90 mcg/actuation HFA aerosol inhaler 2 puff INHALATION Q6H PRNRF: 0 glipizide 5 mg tablet 5 mg PO DAILY RF: 0 sodium chloride [Saline Nasal] 0.65 % aerosol,spray 2 spray INTRANASAL BID RF: 0 Discharge Instructions Instructions: Ciprofloxacin (By mouth), Promethazine (By mouth), Dehydration (ED), Urinary Tract Infection in Women (ED) Additional Instructions: Labs and imaging are concerning for urinary tract infection and has come up and your kidneys. Please encourage water intake. You may use the promethazine as prescribed to help with any recurrence of your nausea/vomiting. You are given your night time dose of antibiotics, please take next dose tomorrow morning. Remaining antibiotics have been sent to your pharmacy. Even if symptoms improve, please take the entire course. I would like for you to follow-up with your primary care the beginning of next week for reevaluation, please call Sunday morning to schedule appointment. If you develop fever/chills, inability stay hydrated or other new/worsening symptom please seek care once again. Referrals: Margarita Cuenca [Primary Care Provider] - Discharge Data Discharge Date/Time-TO BE ENTERED AT DEPARTURE: 05/07/21 00:30 Medical Decision Making Patient is a pleasant 35-year-old female presents today with chief complaint of 4 days of nausea, vomiting and right upper quadrant pain. States the pain is constant but does worsen slightly with eating. Denies any fevers or chills. No hematemesis. Denies any change in bowel habits. Denies any increased f requency, urgency or dysuria. Denies any abnormal vaginal discharge. Past medical history pertinent for diabetes, hypertension, rheumatoid arthritis. Patient cleared for her tubal ligation. Also had umbilical hernia repair. Patient denies any specific foods worsening her discomfort. Reports that she vomited x10 today. Has not been able to keep down any p.o. intake. On exam, patient appears nontoxic. He is tachycardic with a heart rate of 124. Abdomen is tender, particularly with palpation over the right upper quadrant. Negative Bassett sign. No pain over McBurney's point. No guarding or rebound tenderness. We will hydrate the patient, pain CT imaging, primarily concern for gallbladder pathology. Considered appendicitis, pyelonephritis, viral illness, colitis, gastritis versus other. EKG was reviewed by Dr. Alvares. Patient is a right bundle branch block, he advised unchanged from previous. We did question the QTC as this was read by the computer at 520. However, he believes that this longer than actual based on the patient's right bundle branch block. [place] that ciprofloxacin was safe. However, will switch Zofran to Phenergan to help prevent any further acute Labs reviewed. White count of 15.7. Sodium 131. Potassium. 0.4. Anion gap of 15. Creatinine slightly elevated at 1.2. Glucose is elevated at 382, patient has been elevated like this multiple times historically. Lipase within normal limits. Urine is concerning for infection. However, it is heavily contaminated, will get repeat urinalysis. FINDINGS: Lungs: Lung bases are clear. Liver: Normal. No mass. Gallbladder and bile ducts: Normal. No calcified stones. No ductal dilation. Pancreas: Normal. No ductal dilation. Spleen: Normal. No splenomegaly. Adrenal glands: Normal. No mass. Kidneys and ureters: Heterogeneous enhancement is noted in both kidneys, striated nephrogram. Mild perinephric fat stranding noted around both kidneys. Exam is negative for hydronephrosis. There are no stones in the collecting systems. The ureters are not dilated. Stomach and bowel: Unremarkable. No obstruction. No mucosal thickening. Appendix: No evidence of appendicitis. Intraperitoneal space: Unremarkable. No free air. No significant fluid collection. Vasculature: Unremarkable. No abdominal aortic aneurysm. Lymph nodes: Unremarkable. No enlarged lymph nodes. Urinary bladder: Mild wall thickening is noted in the urinary bladder. Fat planes at the bladder dome are indistinct. There are no stones observed in the bladder. Bladder neck is unremarkable. Reproductive: Unremarkable as visualized. Bones/joints: Unremarkable. No acute fracture. Soft tissues: Unremarkable. IMPRESSION: Correlate for urinary tract infection. Findings raise concern for bilateral pyelonephritis. Negative for abscess or hydronephrosis. Discussed these findings with the patient. She is receiving hydration. Continues to be urinating normally. Plan to repeat BMP. We will begin the patient on ciprofloxacin. Patient I discussed inpatient versus outpatient management of her pyelonephritis. Patient would prefer outpatient management. She does live locally and is able to return with any new or worsening symptoms. Strict return precautions were discussed. Encourage that she follow-up with primary care in the next few days. Patient feeling much improved. Tolerating p.o. Plan to repeat BMP. Potassium is low at 3.0, will replenish orally. Gap is now 11.4, responding well to fluid. Repeat urine is concerning for infection has been sent for culture. Patient is requesting discharge at this time. We will continue on oral ciprofloxacin. Encourage water intake. I have asked that she follow-up with primary care the beginning of the week, she will call Sunday to schedule appointment. We will continue with Phenergan to help with any recurrence of her nausea or vomiting. Other questions or concerns were addressed and she is in agreement with this plan. HPI General Mode of arrival: ambulatory . Date/Time Provider Initiated Documentation: 05/06/21 20:52 . Limitations to Documentation: no limitations . Information obtained by: patient and RN notes reviewed . History of Present Illness 35 year old F presents to the emergency department with the chief complaint of RUQ pain, N/V, described as severe, with intensity rated at 8. Quality is described as sharp, and is localized to the abdomen. Patient reports no radiation. Patient started experiencing this day(s) (4) and it has been constant. No relieving factors improve symptom(s), Eating worsens symptoms . Patient notes loss of appetite and nausea/vomiting; denies chest pain, cough, fever/chills and shortness of breath. Patient did receive the following treatments prior to arrival, none Related Data Home Medications Medication Instructions Recorded Confirmed acetaminophen [Tylenol] 650 mg PO PRN PRN 05/15/17 05/06/21 blood pressure monitor #1 each 02/13/20 albuterol sulfate 2 puff INHALATION Q6H PRN 07/19/20 05/06/21 glipizide 5 mg PO DAILY 07/19/20 05/06/21 sodium chloride [Saline Nasal] 2 spray INTRANASAL BID 07/19/20 05/06/21 Trulicity 1.5 mg SUBCUT QWEEK 05/06/21 05/06/21 lisinopril 5 mg PO DAILY 05/06/21 05/06/21 simvastatin 10 mg PO DAILY 05/06/21 05/06/21 ciprofloxacin HCl 500 mg PO BID 6 Days #12 tab 05/07/21 promethazine 25 mg PO Q6H PRN #7 tab 05/07/21 Previous Rx's Medication Instructions Recorded blood pressure monitor #1 each 02/13/20 ciprofloxacin HCl 500 mg PO BID 6 Days #12 tab 05/07/21 promethazine 25 mg PO Q6H PRN #7 tab 05/07/21 Allergies Allergy/AdvReac Type Severity Reaction Status Date / Time Sulfa (Sulfonamide Allergy Other (See Unverified 05/06/21 20:41 Antibiotics) Comment) Penicillins AdvReac Intermediate Hives Unverified 05/06/21 20:41 [email or web address] [From Robitussin] AdvReac Mild Nausea Unverified 05/06/21 20:41 General Stated Complaint: Abd Prob JUDITH: 3 Review of Systems Constitutional Constitutional: Reports as per HPI, Denies chills, Denies fatigue, Denies fever(s) and Denies headache(s) ENT Ears, Nose, Mouth, and Throat: Denies headache(s) Cardiovascular Cardiovascular: Reports as per HPI, Denies chest pain and Denies dyspnea Respiratory Respiratory: Reports as per HPI, Denies cough and Denies dyspnea Gastrointestinal Gastrointestinal: Reports as per HPI Musculoskeletal Musculoskeletal: Reports as per HPI and Denies back pain Integumentary/Breasts Skin/Breast: Reports as per HPI and Denies rash Neurologic Neurologic: Reports as per HPI and Denies headache(s) Endocrine Endocrine: Denies fatigue [facility] Medical History (Updated 05/07/21 @ 00:10 by JAMA Mack) Diabetes HTN (hypertension) Hypertension Rheumatoid arthritis Surgical History H/O section H/O heart valve replacement with bioprosthetic valve History of bilateral tubal ligation History of hernia repair Social History Smoking/Tobacco Use Status: Current every day Tobacco Type: cigarettes and e- cigarettes Smoking risk assessment performed?: Yes Alcohol Intake: current Alcohol Intake frequency: a few times a month Drug use: Occasionally Substance use type: marijuana Do you feel safe at home: Yes Do you feel safe in your relationship?: Yes Exam Const General: cooperative, healthy appearing, comfortable, no acute distress and well developed Nutritional Appearance: well nourished and obese Orientation: alert and awake HENMT Head: normal to inspection Mouth: moist mucous membranes Resp Effort & Inspection: normal respiratory effort, able to speak in complete sentences and no respiratory distress Auscultation: clear to auscultation bilaterally, no rales, no rhonchi and no wheezes Cardio Rate: tachycardic Rhythm: regular rhythm Heart Sounds: S1 normal and S2 normal GI Inspection: normal to inspection, non-distended and obesity Palpation: soft, no hepatosplenomegaly, no guarding and tender in the RUQ; not at McBurney's point, Bassett's sign negative and with no rebound tenderness Percussion: normal to percussion Auscultation: normal bowel sounds Back/Spine/Pelvis Back: no CVA tenderness Skin General skin exam: no rashes or lesions noted Trauma: no lacerations or abrasions Neuro General: patient alert and patient awake Cognition: normal cognition Speech: speech normal Gait: normal gait Psych Appearance: grossly normal and well kempt Mental Status: mental status grossly normal Speech and Movement: speech and movement normal Course Vital Signs Vital signs: Vital Signs Temperature 36.6 C 05/06/21 20:33 Pulse 124 H 05/06/21 20:33 Respiratory Rate 18 05/06/21 20:33 Blood Pressure 136/79 05/06/21 20:33 Pulse Oximetry 98 05/06/21 20:33 Temperature 36.6 C 05/06/21 20:33 Temperature Source Skin 05/06/21 20:33 Pulse 124 H 05/06/21 20:33 Respiratory Rate 18 05/06/21 20:33 Respiratory Effort Non-Labored 05/06/21 20:48 Blood Pressure 136/79 05/06/21 20:33 Blood Pressure Position Sitting 05/06/21 20:33 Pulse Oximetry 98 05/06/21 20:33 Oxygen Delivery Method Room Air 05/06/21 20:33 Oxygen Flow Rate 0 05/06/21 20:33 Pain Level 8 05/06/21 20:33
[2021-05-06] MEDS: Normal Saline 1,000 ML 1000 ML IV ×2 (21:01→22:43)
[2021-05-06] MEDS: Ondansetron 4 MG/2 ML VIAL IVP (21:02)
[2021-05-06 21:04] LABS: Bilirubin Negative (Negative); Blood Moderate (Negative); Clarity Sl Cloudy (Clear); Glucose 500 mg/dL (Negative); Ketones Trace mg/dL (Negative); Leukocyte Esterase Small (Negative); Nitrite Negative (Negative); Urobilinogen 0.2 EU/dL (Up TO 0.2)
[2021-05-06 21:11] LABS: Abs Immature Grans 0.12 10^3/uL (0.0-0.06); Absolute Basophil Count 0.05 10^3/uL (0.0-0.2); Absolute Lymphocyte Count 1.15 10^3/uL (1.2-3.4); Basophils % 0.3; Eosinophils % 0.1; HCT 40.8 % (36.0-46.0); HGB 13.1 g/dL (11.2-15.7); Immature Grans % 0.8; Lymphocytes % 7.3; MCH 27.2 pg (27.0-33.0); MCHC 32.1 % (32.0-36.0); MCV 84.8 fL (80-95); MPV 10.9 fL (8.0-11.0); Monocytes % 8.9; Neutrophils % 82.6; Nucleated RBC 0 %; Platelet Count 200 10^3/uL (130-400); RBC 4.81 10^6/uL (3.93-5.22); RDW 14.3 % (11.7-14.6); RDW-SD 44.2 fL; WBC 15.76 10^3/uL (4.4-10.8)
[2021-05-06 21:16] LABS: ALT 48 U/L (14-59); AST 16 U/L (15-37); Albumin 3.1 g/dL (3.4-5.0); Alkaline Phosphatase 101 U/L (46-116); BUN 7 mg/dL (7-18); Bilirubin, Total 0.7 mg/dL (0.2-1.0); CREATININE 1.2 mg/dL (0.55-1.02); Calcium 8.8 mg/dL (8.5-10.1); Chloride 93 mmol/L (98-107); Estimated GFR 51.12 (mL/min/1.73m2); Glucose 382 mg/dL (74-106); Lipase 37 U/L (73-393); Magnesium 1.7 mg/dL (1.8-2.4); Potassium 3.4 mmol/L (3.5-5.1); Sodium 131 mmol/L (136-145); Total Protein 8.5 g/dL (6.4-8.2)
[2021-05-06 21:17] LABS: Absolute Eosinophil Count 0.02 10^3/uL (0.0-0.7); Absolute Neutrophil Count 13.02 10^3/uL (1.2-6.7)
[2021-05-06 21:25] LABS: Bacteria Many HPF (Negative); C & S Indicated? No/Sq. Contamination; Casts Negative LPF (Negative); Crystals Negative HPF (Negative); Epithelial Cells Many HPF (Negative); Mucus Negative (Negative); RBC >50 HPF (0-2); WBC >50 HPF (0-5)
[2021-05-06] MEDS: Normal Saline Flush 10 ML SYR IVP (21:26)
[2021-05-06] MEDS: Omnipaque 350 MG/ML 100 ML BTL IJ (21:26)
[2021-05-06] MEDS: Normal Saline - Diluent 50 ML VIAL IV (21:26)
--- NOTE | 2021-05-06 21:27 | DI.CT_ITS ---
Exam(s) CT ABDOMEN PELVIS W EXAM: CT ABDOMEN PELVIS W CLINICAL HISTORY: RUQ pain, vomiting TECHNIQUE: Imaging Protocol: Axial computed tomography images with coronal and sagittal reformatted images were created and reviewed CONTRAST MATERIAL: Intravenous: Omnipaque 350 Contrast volume:100 mL Oral: No COMPARISON: CT ABD PELVIS WITH CONTRAST from 12/16/2017 FINDINGS: The examination is limited due to patient motion artifact. ABDOMEN: Lung Bases: Normal where visualized. Liver: Normal density. No measurable mass. Portal, Superior Mesenteric, and Splenic Veins: Unremarkable. Gallbladder and Biliary Tract: No radiodense calculus or dilation. Pancreas: Normal density, no abnormal calcifications or inflammatory process. Spleen: Normal. Adrenals: No masses seen. Kidneys: Normal size, contour and axis. No radiodense stones or obstructive uropathy. No masses seen. There is a striated left nephrogram with mild perinephric stranding. Abdominal Aorta: Abdominal portion non-dilated. Bowel: No obstruction or bowel wall thickening. A normal appendix is visualized. Peritoneal Cavity: No ascites, collection or mesenteric inflammatory response. No free air. Lymph Nodes: Within normal limits. Bones: Within normal limits for the patient's age. Soft Tissues: Unremarkable. PELVIS: Bladder: Mild diffuse thickening of the wall of the urinary bladder. Mild increased stranding is see n around the urinary bladder. Reproductive Organs: Unremarkable as visualized. Lymph Nodes: Within normal limits. Bones: Within normal limits for the patient's age. IMPRESSION: Findings suspicious for pyelonephritis. Cystitis cannot be excluded. Please correlate clinically. RADIATION DOSE DELIVERED: 1,608.58mGy.cm Total DLP DATA REPOSITORY: All CT scans at this facility are submitted to the National Radiology Data Registry (NRDR) Dose Index Registry (DIR) with the [employer] (A[employer]). RADIATION OPTIMIZATION: All CT scans at this facility use at least one of these dose optimization te chniques: automated exposure control; mA and/or kV adjustment per patient size (includes targeted exa ms where dose is matched to clinical indication); or iterative reconstruction.
--- NOTE | 2021-05-06 22:06 | DI.VRAD_ITS ---
PROCEDURE INFORMATION: Exam: CT Abdomen And Pelvis With Contrast Exam date and time: 05/06/2021 8:55 PM Age: 35 years old Clinical indication: Other: Ruq pain, vomiting; Prior surgery; Surgery date: 6+ months; Surgery type: S/P hernia repair and TECHNIQUE: Imaging protocol: Computed tomography of the abdomen and pelvis with contrast. Radiation optimization: All CT scans at this facility use at least one of these dose optimization techniques: automated exposure control; mA and/or kV adjustment per patient size (includes targeted exams where dose is matched to clinical indication); or iterative reconstruction. Contrast material: OMNIPAQUE 350; Contrast volume: 100 ml; Contrast route: INTRAVENOUS (IV); COMPARISON: CT ABD PELVIS WITH CONTRAST 12/16/2017 9:51 PM FINDINGS: Lungs: Lung bases are clear. Liver: Normal. No mass. Gallbladder and bile ducts: Normal. No calcified stones. No ductal dilation. Pancreas: Normal. No ductal dilation. Spleen: Normal. No splenomegaly. Adrenal glands: Normal. No mass. Kidneys and ureters: Heterogeneous enhancement is noted in both kidneys, striated nephrogram. Mild perinephric fat stranding noted around both kidneys. Exam is negative for hydronephrosis. There are no stones in the collecting systems. The ureters are not dilated. Stomach and bowel: Unremarkable. No obstruction. No mucosal thickening. Appendix: No evidence of appendicitis. Intraperitoneal space: Unremarkable. No free air. No significant fluid collection. Vasculature: Unremarkable. No abdominal aortic aneurysm. Lymph nodes: Unremarkable. No enlarged lymph nodes. Urinary bladder: Mild wall thickening is noted in the urinary bladder. Fat planes at the bladder dome are indistinct. There are no stones observed in the bladder. Bladder neck is unremarkable. Reproductive: Unremarkable as visualized. Bones/joints: Unremarkable. No acute fracture. Soft tissues: Unremarkable. IMPRESSION: Correlate for urinary tract infection. Findings raise concern for bilateral pyelonephritis. Negative for abscess or hydronephrosis. Dictated and Authenticated by: Good Tabor MD. Ordering:KINGSTON Whitehead MD
--- NOTE | 2021-05-06 22:30 | RT.EKG_ITS ---
APPROVED REPORT Exam: Resting ECG Reason for Exam: QT prolonging meds Patient Location: E HR:97 bpm ECG Measurements Heart Rate 97 AXIS GA 154 P 48 QRSd 173 QRS 80 QT 408 T 29 QTc 520 Conclusion Sinus rhythm...normal P axis, V-rate 60- 99 Right bundle branch block...QRSd>120, terminal axis(90,270) I have reviewed and interpreted ECG and agree with software generated interpretation. There are no significant changes compared to prior EKG performed on 02/19/2020 at 17:30.
[2021-05-06] MEDS: Ciprofloxacin 500 MG TAB PO (22:43)
[2021-05-06 22:55] LABS: Bilirubin Negative (Negative); Blood Trace-intact (Negative); Clarity Sl Cloudy (Clear); Glucose 250 mg/dL (Negative); Ketones Negative (Negative); Leukocyte Esterase Small (Negative); Nitrite Negative (Negative); Specific Gravity <= 1.005 (1.005-1.025); Urobilinogen 0.2 EU/dL (Up TO 0.2)
[2021-05-06 23:03] LABS: Bacteria Moderate HPF (Negative); C & S Indicated? Yes; Casts Negative LPF (Negative); Crystals Negative HPF (Negative); Epithelial Cells Negative HPF (Negative); Mucus Negative (Negative); Other Cells Negative (Negative); RBC Negative HPF (0-2); WBC >50 HPF (0-5)
[2021-05-06 23:24] LABS: Anion Gap 11.4 mmol/L (3-11); BUN 6 mg/dL (7-18); CO2 24.6 mmol/L (21.0-32.0); Calcium 7.7 mg/dL (8.5-10.1); Chloride 99 mmol/L (98-107); Glucose 286 mg/dL (74-106); Potassium 3.2 mmol/L (3.5-5.1); Sodium 135 mmol/L (136-145)
[2021-05-07] VITALS: BP 147/67; PULSE 97; O2SAT 95
[2021-05-07 00:01] VITALS: O2SAT 94
[2021-05-07 00:10] VITALS: O2SAT 97
[2021-05-07 00:15] VITALS: BP 154/84; PULSE 96; O2SAT 97
[2021-05-07] MEDS: POTASSIUM CHLORIDE 20 MEQ, POTASSIUM CHLORIDE 10 MEQ 30 MEQ PO (00:21)
[2021-05-07] MEDS: Promethazine 25 MG TAB 50 MG PO (00:25)
[2021-05-07] MEDS: Ciprofloxacin 500 MG TAB PO (00:25)
== END 2021-05-07 00:30 | disposition home or self-care (01) ==
PROVIDERS: Emergency Provider Physician Assistant; PCP Physician Assistant
DX: N10 Acute pyelonephritis (principal); E86.0 Dehydration; E87.6 Hypokalemia; E83.51 Hypocalcemia; E83.42 Hypomagnesemia
CPT/HCPCS: 36415; 80048; 80053; 81025; 83690; 93005; 96361; 96374; 99285; 74177; 81003; 81015; 83735; 85025; 87086; 93010; 99284; J2405; J3490

== ENCOUNTER 2021-07-12 14:04 | Emergency (ER) | payer OTHER, MEDICAID, SELFPAY ==
[2021-07-12 14:10] VITALS: BP 161/95; PULSE 109; RESP 16; TEMP 36.4; O2SAT 97
--- OUTSIDE RECORDS SUMMARY | 2021-07-12 14:17 | XMS_ITS ---
:1985 Author Care Team Providers Name Role Phone SAMSON FREDERICK Beater Room Supervisor [phone] MELANY LEAL Primary Care Provider [phone] Allergies Code Code System Name Reaction Severity Status Onset Insect Venom ? ? Active ? 837894 RxNorm Keflex Hives ? Active ? 9813935 RxNorm Latex ? ? Active ? 6809 RxNorm Metformin Diarrhea ? Active ? Penicillins Hives ? Active ? Robitussin Nausea ? Active ? Sulfa Itching ? Active ? (Sulfonamide Antibiotics) Medications Name Status Start Date Stop Date ? ? Accu-Chek Kasey Plus Meter Active ? Not a vailable USE TO TEST EVERY DAY` Accu-Chek Kasey Plus test strips Active ? Not available Accu-Chek Softclix Lancets Active ? Not a vailable albuterol 90 mcg/actuation aerosol inhaler Completed ? 04/28/2020 Inhale 2 puffs every 4 hours by inhalation route as needed. albuterol sulfate HFA 90 mcg/actuation Active ? Not available aerosol inhaler Antiseptic Skin Cleanser (chlorhexidine) 4 % liquid Active ? Not available twice weekly azithromycin 250 mg tablet Completed ? 09/29 BD Eloise 2nd Gen Pen Needle 32 gauge x 5/32 Active ? Not available USE DIRECTED BD Ultra-Fine Short Pen Needle 31 gauge x 5/16 Active ? Not available USE ONE DAILY cephalexin 500 mg capsule Completed ? 2019 chlorhexidine gluconate 0.12 % mouthwash Active ? Not available RINSE MOUTH WITH 15 ML TWICE DAILY FOR 7 DAYS ciprofloxacin 500 mg tablet Active ? Not available TAKE 1 TABLET BY MOUTH TWICE DAILY FOR 6 DAYS clindamycin 1 % topical solution Completed ? 03/04/2021 APPLY A THIN LAYER TO THE AFFECTED AREA(S) BY TOPICAL ROUTE 2 T IMES PER DAY clindamycin HCl 150 mg capsule Completed ? 0 04/28/2020 clindamycin HCl 300 mg capsule Active ? N ot available Cortisporin 3.5 mg/mL-10,000 unit/mL-1 % ear drops,suspension Co mpleted ? 02/03/2020 Place 3 drops into the right ear 4 times daily fluconazole 150 mg tablet Completed ? 2019 glipizide 5 mg tablet Active ? Not availa ble ibuprofen 600 mg tablet Completed ? 03/04/20 21 Take 1 tablet every 6 hours by oral route as needed. lancets Active ? Not available test once a day Lantus Solostar U-100 Insulin 100 Completed ? 02/09/2021 unit/mL (3 mL) subcutaneous pen Lidocaine Viscous 2 % mucosal solution Completed ? 02/02/2021 lisinopril 5 mg tablet Active ? Not avail able TAKE 1 TABLET BY MOUTH EVERY DAY meloxicam 15 mg tablet Active ? Not avail able TAKE 1 TABLET BY MOUTH EVERY DAY metronidazole 500 mg tablet Active ? Not available miconazole nitrate 2 % topical powder Completed ? 02/03/2020 APPLY BY TOPICAL ROUTE 2 TIMES PER DAY IN GROIN FOLDS mometasone 50 mcg/actuation nasal spray Active ? Not available [facility] 2 sprays every day by intranasal route. nitrofurantoin macrocrystal 100 mg Completed ? 04/28/2020 capsule Percocet 5 mg-325 mg tablet Completed ? 04/2020 TAKE 1 - 2 TABLETS BY ORAL ROUTE EVERY 4 HOURS NEEDED FOR PA IN promethazine 25 mg tablet Active ? Not av ailable TAKE 1 TABLET BY MOUTH EVERY 6 HOURS NEEDED FOR NAUSEA OR VO MITING Saline Mist 0.65 % nasal spray aerosol Active ? Not available 2 sprays each nostril BID & PRN simvastatin 10 mg tablet Active ? Not katie ilable TAKE 1 TABLET BY MOUTH EVERY DAY AT BEDTIME triamcinolone acetonide 0.1 % topical Active ? Not available ointment Trulicity 0.75 mg/0.5 mL subcutaneous pen injector Completed ? 03/04/2021 ADMINISTER 0.75 MG UNDER THE SKIN EVERY WEEK IN THE MORNING FOR 14 DAYS Trulicity 1.5 mg/0.5 mL subcutaneous Active ? Not available pen injector Problems Name Status Onset Date Source ? Carpal Tunnel Syndrome Active 03/05/2020 ? Reactive Airway Disease Active 03/05/2020 ? Rheumatoid Arthritis Active 03/05/2020 ? Hidradenitis Suppurativa Active 12/16/2020 ? Smoker Active 02/02/2021 ? 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 Microalbuminuria Active 02/03/2021 ? Hyperlipidemia Active 03/04/2021 ? Low Back Pain Active 03/04/2021 ? Type 2 Diabetes Mellitus Active ? ? Depressive Disorder Active ? ? Developmental Academic Disorder Active ? ? Migraine Active ? ? Hypertensive Disorder Active ? ? Asthma Unknown ? ? Dental Caries Unknown ? ? Lumbosacral Spondylosis without Myelopathy Unknown ? ? Enthesopathy of Hip Region Unknown ? ? Congenital Anomaly of Optic Nerve Active ? ? Tetralogy of Fallot Active ? ? Congenital Heart Disease Unknown ? ? 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 ? Sleep Disorder Unknown ? ? History of Abnormal Cervical Papanicolaou Active ? ? Smear Procedures Date Name Performed by ? 03/11/2019 Dental Surgery Procedure Information not available Notes: extraction of 13 teeth 05/29/2017 Hernia Repair Information not avai lable Notes: abdominal 02/27/2016 Section Information not avai lable ? Open Heart Surgery Information not avai lable Notes: tetrology of fallot repair x 2 , in 1985 & 2014 ? Tubal Ligation Information not avai lable 04/28/2020 Electrocardiogram P_nc Primary [facility] Ba jones/Kelsey [address] [place] [phone] (Work Place) Notes: hosptializations: none PSH: pulmonary valve replacement 2013; t eeth removed Sep 2020 Results Lab Results Date Name Specimen Result Interpretation Description Value Range Status Address ? 04/01/2021 Renal Function S High g/r 188 mg/dL 74-106 Fi nal North Panel, Serum mg/dL Coun [facility] L ab (Internal) : [address] ? ? S ? Bun 9 mg/dL 7-17 Final North mg/dL [facility] L ab (Internal) : [address] ? ? S ? Crea 0.70 mg/dL 0.52-1.04 Final Nor th mg/dL [facility] L ab (Internal) : [address] ? ? S ? Ca 9.6 mg/dL 8.4-10.2 Final North mg/dL [facility] L ab (Internal) : [address] ? ? S ? Phos 4.3 mg/dL 2.5-4.5 Final North mg/dL [facility] L ab (Internal) : [address] ? ? S ? Na 141 mmol/L 137-145 Final North mmol/L [facility] L [facility] (Internal) : [address] ? ? S ? K 4.5 mmol/L 3.5-5.1 Final North mmol/L [facility] L [facility] (Internal) : [address] ? ? S ? Cl 103 mmol/L 98-107 Final North mmol/L [facility] L ab (Internal) : [address] ? ? S ? Tco2 25.0 22.0-30.0 Final North mmol/L mmol/L [facility] L ab (Internal) : [address] ? ? S ? Alb 4.1 g/dL 3.5-5.0 Final North g/dL [facility] L ab (Internal) : [address] ? ? S ? GFR 95 >89 Final North (Calc) [facility] L [facility] (Internal) : [address] 04/01/2021 Lipid Panel, S ? Chol 184 mg/dL 50-200 Michelle l North Serum mg/dL [facility] L [facility] (Internal) : [address] ? ? S High Trig 253 mg/dL 10-150 Final North mg/dL [facility] L [facility] (Internal) : [address] ? ? S Low Hdl 26 mg/dL 40-60 Final North mg/dL [facility] L ab (Internal) : [address] ? ? S ? Ldl 107 mg/dL 0-130 Final North mg/dL [facility] L [facility] (Internal) : [address] 04/01/2021 HbA1C BLD High Ha1C 8.4 % 4.0-6.0 % Final Nor th (Hemoglobin Count ry a1C), Blood Hospi meng Lab (Internal) : [address] 04/01/2021 Venipuncture ? Location Right ? ? P_nc Primary Antecubita Care l [place]l [place]a ns: [address], [place] ? ? ? Needle 23g ? ? P_nc Prim alexus Butterfly Care V[place]/Orl ea ns: [address], [place] ? ? ? Number 1 ? ? P_nc Prim alexus of Care Attempts V[place]/O rlea ns: [address], [place] ? ? ? Successf Yes ? ? P_nc Pr imary ul Care [place]/Orl ea ns: [address], [place] ? ? ? Dressing Pressure ? ? P_nc Primary Band-aid Care Applied V[place] obed ns: [address], [place] ? ? ? Initials hj ? ? P_nc Pr imary Care [place]l ea ns: [address], [place] 02/02/2021 CBC W/ Auto BLD ? Wbc 9.7 5.0-10.0 Final [place] Diff 10*3/uL 10*3/uL [facility] L [facility] (Internal) : [address] t ? ? BLD ? Rbc 4.91 4.10-5.30 Final [place] 10*6/uL 10*6/uL [facility] L ab (Internal) : [address] ? ? BLD ? Hgb 13.6 g/dL 12.0-16.0 Final Nort h g/dL [facility] L ab (Internal) : [address] ? ? BLD ? Hct 42.7 % 37.0-47.0 Final [facility] L ab (Internal) : [address] ? ? BLD ? Mcv 87.0 fL 80.0-96.[address] [facility] L ab (Internal) : [address] ? ? BLD ? Mch 27.7 pg 26.0-32.0 Final [facility] L ab (Internal) : [address] ? ? BLD ? Mchc 31.9 g/dL 31.0-35.0 Final Nort h g/dL [facility] L ab (Internal) : [address] ? ? BLD ? Rdw 13.2 % 11.5-14.5 Final [facility] L ab (Internal) : [address] t ? ? BLD ? Plt 203 130-450 Final [place] 10*3/uL 10*3/uL [facility] L ab (Internal) : [address] ? ? BLD ? Anc 7.03 ? Final [place] 10*3/uL [facility] L ab (Internal) : [address] ? ? BLD High Nlr 3.99 0.00-3.20 Final [facility] L ab (Internal) : [address] ? ? BLD ? Neutro 72.6 % 40.0-75.0 Final [facility] L ab (Internal) : [address] ? ? BLD Low Lymph 18.2 % 20.0-50.0 Final [facility] L ab (Internal) : [address] ? ? BLD ? Bradford 5.0 % 2.0-10.0 Final [facility] L ab (Internal) : [address] ? ? BLD ? Eos 3.1 % 1.0-6.0 % Final [facility] L ab (Internal) : [address] ? ? BLD ? Baso 0.6 % 0.0-1.0 % Final [facility] L ab (Internal) : [address] ? ? BLD ? Ig 0.5 % 0.0-0.9 % Final [facility] L ab (Internal) : [address] 02/02/2021 Lipid Panel, S High Chol 241 mg/dL 50-200 Michelle l North Serum mg/dL [facility] L ab (Internal) : [address] ? ? S High Trig 295 mg/dL 10-150 Final North mg/dL [facility] L ab (Internal) : [address] ? ? S Low Hdl 33 mg/dL 40-60 Final [place] mg/dL [facility] L ab (Internal) : [address] ? ? S High Ldl 149 mg/dL 0-130 Final [place] mg/dL [facility] L ab (Internal) : [address] 02/02/2021 HbA1C BLD High Ha1C 10.4 % 4.0-6.0 % Final [facility] th (Hemoglobin Count ry a1C), Blood Hospi meng Lab (Internal) : [address] 02/02/2021 Microalbumin, UR High Malb 30.9 mg/L 5.0-16.7 F inal [place] Urine mg/L [facility] L ab (Internal) : [address] ? ? UR ? U-crea, 100 mg/dL 30-125 Final [place] Spot mg/dL [facility] L ab (Internal) : [address] ? ? UR High Microalb 31.0 ug/mg 0.0-30.0 Final N orth /crea ug/mg Count Includes [facility] Hospital L ab (Internal) : [address] 04/28/2020 Urinalysis, UR ? UA-color yellow pale Final [place] Dipstick, yellow Country Reflex Micro Hosp ital Lab (Internal) : [address] ? ? UR ABNORMAL UA-appea hazy clear Final [facility] ab (Internal) : [address] ? ? UR ? UA-spec 1.025 1.003-1.0 Final [place] Grav [address] [place] [address] L ab (Internal) : [address] ? ? UR ? UA-pH 6.0 [pH] 4.6-8.0 Final [place] [pH] [facility] ab (Internal) : [address] ? ? UR ABNORMAL UA-leuk small negative Final [facility] ab (Internal) : [address] ? ? UR ? UA-nitri negative negative Final [facility] ab (Internal) : [address] ? ? UR ? UA-prot negative negative Final [facility] ab (Internal) : [address] ? ? UR ? UA-gluc 2+ negative Final [facility] ab (Internal) : [address] ? ? UR ABNORMAL UA-keton trace negative Final [facility] L ab (Internal) : [address] ? ? UR ? UA-urobi normal normal Final [facility] ab (Internal) : [address] ? ? UR ? UA-bili negative negative Final [facility] ab (Internal) : [address] ? ? UR ABNORMAL UA-blood small negative Final [facility] ab (Internal) : [address] 04/28/2020 Urinalysis, UR ABNORMAL UA-WBC 25-50 0-3 [hpf] Fi [facility] Microscopic [hpf] Count ry Hospital L ab (Internal) : [address] ? ? UR ABNORMAL UA-RBC 5-10 [hpf] 0-2 [hpf] Final [facility] L ab (Internal) : [address] ? ? UR ABNORMAL UA-bacte moderate none seen Final [place] tri [hpf] [hpf] [facility] L ab (Internal) : [address] ? ? UR ABNORMAL UA-epith many [hpf] none seen Final [place] elial [hpf] [facility] L ab (Internal) : [address] ? ? UR ABNORMAL UA-mucus moderate none seen Final [place] [hpf] [hpf] [facility] ab (Internal) : [address] ? ? UR ABNORMAL Trichamo few [hpf] none seen Final [place] n, U [hpf] [facility] ab (Internal) : [address] 04/28/2020 Culture UR ? Final microbiolo ? Final N orth ([place] gy results Count ry Count), Urine Hos pital Lab (Internal) : [address] 04/28/2020 Urinalysis, ? Color Yellow ? ? P _nc Primary Dipstick, Care Reflex Micro Lupillo on/Orlea ns: [address], [place] ? ? ? Appearan Cloudy ? ? P_nc Pr imary ce Care [place]/Orl ea ns: [address], [place] ? ? ? Glucose 100 ? ? P_nc Shanda yolie Care V[place]/Orl ea ns: [address], [place] ? ? ? Bilirubi Negative ? ? P_nc Primary n Care [place]/Orl ea ns: [address], [place] ? ? ? Ketones Small ? ? P_nc Shanda yolie Care V[place]/Orl ea ns: [address], [place] ? ? ? Specific 1.020 ? ? P_nc Pr imary [place] Care V[place]/Orl ea ns: [address], [place] ? ? ? Blood Small ? ? P_nc Prima ry Care [place]/Orl ea ns: [address], [place] ? ? ? Ph 5.5 ? ? P_nc Prima ry Care [place]/Orl ea ns: [address] [facility], [place] ? ? ? Protein Trace ? ? P_nc Shanda yolie Care V[place]/Orl ea ns: [address] [facility], [place] ? ? ? Urobilin 0.2 ? ? P_nc Pr imary ogen Care V[place]/Orl ea ns: [address] [facility], [place] ? ? ? Nitrite negative ? ? P_nc P rimary Care [place]/Orl ea ns: [address] [facility], [place] ? ? ? Leukocyt Small ? ? P_nc Pr imary e Care Esterase Vee/O rlea ns: [address] [facility], [place] 04/28/2020 Electrocardiog ? Rate & NSR 86 bpm ? ? P_nc Primary ml Rhythm Care V[place]/Orl ea ns: [address] [facility], [place] ? ? ? [place] 146 ? ? P_nc Prima ry Interval Care V[place]/Orl ea ns: [address] [facility], [place] ? ? ? QRS 170 ? ? P_nc Prima ry Duration Care Vee/Orl ea ns: [address] [facility], [place] ? ? ? QT 424 ? ? P_nc Prima ry Interval Care V[place]/Orl ea ns: [address] [facility], [place] 02/03/2020 HbA1C BLD High Ha1C 9.1 % 4.0-6.0 % Final Nor th (Hemoglobin Count ry a1C), Blood Hospi meng Lab (Internal) : [address] 02/03/2020 CMP, Serum or S High g/r 261 mg/dL 74-106 Fin al North Plasma mg/dL [facility] L ab (Internal) : [address] ? ? S ? Bun 10 mg/dL 7-17 Final North mg/dL [facility] L ab (Internal) : [address] ? ? S Low Crea 0.50 mg/dL 0.52-1.04 Final Nor th mg/dL [facility] L ab (Internal) : [address] ? ? S ? Ca 9.2 mg/dL 8.4-10.2 Final North mg/dL [facility] L ab (Internal) : [address] ? ? S Low Na 135 mmol/L 137-145 Final North mmol/L [facility] L ab (Internal) : [address] ? ? S ? K 4.7 mmol/L 3.5-5.1 Final North mmol/L [facility] L ab (Internal) : [address] ? ? S ? Cl 98 mmol/L 98-107 Final North mmol/L [facility] L ab (Internal) : [address] ? ? S ? Tco2 24.0 22.0-30.0 Final North mmol/L mmol/L [facility] L ab (Internal) : [address] ? ? S ? Tp 7.9 g/dL 6.3-8.2 Final North g/dL [facility] L ab (Internal) : [address] ? ? S ? Alb 4.3 g/dL 3.5-5.0 Final North g/dL [facility] L ab (Internal) : [address] ? ? S ? Tbil 0.3 mg/dL 0.2-1.3 Final [place] mg/dL [facility] L ab (Internal) : [address] ? ? S ? Alp 103 U/L 50-136 Final North U/L [facility] L ab (Internal) : [address] ? ? S ? Alt 18 U/L 9-52 U/L Final [place] (Sgpt) [facility] L ab (Internal) : [address] ? ? S ? Ast 21 U/L 14-36 U/L Final [place] (Sgot) [facility] L ab (Internal) : [address] 02/03/2020 Venipuncture ? Location Right ? ? P_nc Primary Antecubita Care l Vee/Orl ea ns: [address], [place] ? ? ? Needle 21g ? ? P_nc Prim alexus Vacutainer Care Vee/Orl ea ns: [address], [place] ? ? ? Number 1 ? ? P_nc Prim alexus of Care Attempts Vee/O rlea ns: [address], [place] ? ? ? Successf Yes ? ? P_nc Pr imary ul Care Vee/Orl ea ns: [address], [place] ? ? ? Dressing Pressure ? ? P_nc Primary Band-aid Care Applied Vee/Or obed ns: [address], [place] ? ? ? Initials kblanchard ? ? P_n c Primary orthopedic cast specialist Care V[place]/Orl ea ns: [address], [place] ? Venipuncture ? Location Left Hand ? ? P_nc Primary Care V[place]/Orl ea ns: [address], [place] ? ? ? Needle 23g ? ? P_nc Prim alexus Butterfly Care V[place]/Orl ea ns: [address], [place] ? ? ? Number 3 ? ? P_nc Prim alexus of Care Attempts Vee/O rlea ns: [address], [place] ? ? ? Successf Yes ? ? P_nc Pr imary ul Care Vee/Orl ea ns: [address], [place] ? ? ? Dressing Pressure ? ? P_nc Primary Band-aid Care Applied Vee/Or obed ns: [address], [place] ? ? ? Initials DG ? ? P_nc Pr imary Care [place]/Orl ea ns: [address], [place] Past Encounters 04/01/2021 Type 2 Diabetes Mellitus YANI MagallonP: [address] [place] [address], Ph. 03/04/2021 Type 2 Diabetes Mellitus; Hyperlipidemia ; Microalbuminuria; Low Back Pain DANNY Magallon: [address] [place] [address], Ph. 02/09/2021 Type 2 Diabetes Mellitus Samson Frederick RN: [address] [place] [phone], Ph. 02/02/2021 Type 2 Diabetes Mellitus; Acute Dermatit is; Otalgia of Left Ear DANNY Magallon: [address] [place] [address], Ph. 02/02/2021 Type 2 Diabetes Mellitus Samson Frederick RN: [address] [place] [phone], Ph. 09/29/2020 Pre-surgery Evaluation; 22Q11.2 Deletion Syndrome; Dental Caries; Tetralogy of Fallot; Type 2 Diabetes Mellitus YANI MagallonP: [address] [place] [address], Ph. 04/28/2020 Type 2 Diabetes Mellitus; Reactive Airwa y Disease; Hypertensive Disorder; Polyuria YANI MagallonP: [address] [place] [address], Ph. 03/05/2020 Hypertensive Disorder; Type 2 Diabetes M ellitus; Depressive Disorder; Reactive Airway Disease; Migraine; Dysfunction of Bilateral Eustachian Tubes; Toothache YANI MagallonP: [address] [place] [address], Ph. 02/03/2020 Bacterial Vaginosis; Type 2 Diabetes Amelia justinous Rachana Ochoa, [employer] GRADER: [address] [place] [address], Ph. Social History Tobacco Smoking Status Heavy Tobacco Smoker (10/30 Notes: s arnaldo age : pack per a day) 4-5 cigs./day Vaccine List Vaccine Type COVID-19, mRNA, LNP-S, PF, 30 mcg/0.3 mL dose 01/18/2021 DTaP 01/04/2012 Hep B, adolescent or pediatric 10/27/1998 05/10/2004 06/24/2004 12/28/2004 influenza, seasonal, injectable 08/14/2013 09/29/2015 11/30/2017 07/31/2019 MMR 10/27/1998 pneumococcal polysaccharide PPV23 06/12/2013 Td (adult) 10/15/2002 Tdap 01/26/2016 Plan of Care Reminders Provider Appointments None ? ? recorded. Lab None ? ? recorded. Referral None ? ? recorded. Procedures None ? ? recorded. Surgeries None ? ? recorded. Imaging None ? ? recorded. Vitals 03/04/2021 01:40PM Follow Up 40 Height Weight BMI Blood Pressure 163.2 cm 107.95 kg 40.5 kg/m2 (1) 144/92 mm[H g] (2) 134/92 mm[Hg ] 02/09/2021 03:00PM Care Coord Mariusz Height 163.2 cm 02/02/2021 02:00PM Follow Up 20 Height Weight BMI Blood Pressure 163.2 cm 106.14 kg 39.9 kg/m2 134/84 mm[Hg] 09/29/2020 10:40AM Preop Clearance 40 Height Weight BMI Blood Pressure 163.2 cm 111.58 kg 41.9 kg/m2 128/80 mm[Hg] 04/28/2020 10:40AM Follow Up 40 Height Weight BMI Blood Pressure 165.1 cm 108.41 kg 39.8 kg/m2 136/86 mm[Hg] 03/05/2020 01:00PM New Patient 40 Height Weight BMI Blood Pressure 165.1 cm 107.95 kg 39.6 kg/m2 (1) 150/100 mm[ Hg] (2) 136/100 mm[H g] 02/03/2020 11:00AM Acute 20 Height Weight BMI Blood Pressure 165.1 cm 110.22 kg 40.4 kg/m2 130/80 mm[Hg]
--- NOTE | 2021-07-12 14:24 | ED.GENADUL_ITS ---
Discharge Plan Disposition Patient Disposition: HOME Condition: Stable Discharge Details Clinical Impression: Left knee pain Primary Care Provider: Rachana Ochoa ED Provider: Kathie Montes Home Meds and New Rx's Prescriptions: New prednisone 20 mg tablet See Rx Instructions .ROUTE .COMPLEX Qty: 12 RF: 0 Continued (DME) blood pressure monitor Kit See Rx Instructions .ROUTE .MEDSUPPLY Qty: 1 RF: 0 simvastatin 10 mg Tablet 10 mg PO DAILY RF: 0 lisinopril 5 mg Tablet 5 mg PO DAILY RF: 0 Trulicity 1.5 mg/0.5 mL Pen Injector 1.5 mg SUBCUT QWEEK RF: 0 promethazine 25 mg tablet 25 mg PO Q6H PRN (Reason: nausea and vomiting) Qty: 7 RF: 0 acetaminophen [Tylenol] 325 MG tablet 650 mg PO PRN PRNRF: 0 albuterol sulfate 90 mcg/actuation HFA aerosol inhaler 2 puff INHALATION Q6H PRNRF: 0 glipizide 5 mg tablet 5 mg PO DAILY RF: 0 sodium chloride [Saline Nasal] 0.65 % aerosol,spray 2 spray INTRANASAL BID RF: 0 Discharge Instructions Instructions: Knee Pain (ED) Additional Instructions: Your blood work today shows evidence that you have knee inflammation. There is no significant indication that you have a knee infection at this time. A prescription for steroids has been sent electronically to your pharmacy. Take these as directed until finished. Alternate tylenol and motrin as needed and directed for pain. Be sure to check your sugar regularly as steroids may raise your blood sugar. Call the orthopedics office tomorrow to schedule a follow-up appointment for reevaluation in 1 week. 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 Denies injury or fever. There is very faint erythema to the left anterior knee but there is no significant edema, crepitus, induration or fluctuance and does not appear consistent with cellulitis or septic knee at this time. Patient appears comfortable and nontoxic. She has exquisite pain to light touch and with range of motion but there does not appear to be any laxity. She is neurovascularly intact and there is no deformity. Differential diagnosis includes arthritis, knee strain versus sprain, gout. Will obtain ESR, CRP, uric acid and given a dose of Motrin and Tylenol. ESR 33, CRP 3.57, uric acid 6.3. Case discussed with Dr. Pinzon who recommends prednisone taper and follow-up in orthopedics office next week -- Will hold on antibiotics at this time as patient is afebrile, with no significant evidence of cellulitis, minimal elevation in CRP -- Ortho will reassess next week to determine whether patient needs further intervention or antibiotics. She was given a dose of prednisone here and prescription sent electronically to her pharmacy. Patient placed on orthopedic follow-up list. Usual and customary return precautions given prior to discharge. Medical Records Medical records reviewed: Yes I reviewed the patient's medical records. Imaging Data Radiologic Study: Radiologist's impression: XR KNEE LT 3V AP,LAT,CHINMAY CLINICAL HISTORY: L knee pain, r/o arthritis, effusion. TECHNIQUE: 2D digital imaging was performed. COMPARISON: CR RIGHT KNEE COMPLETE from 12/26/2017 FINDINGS: BONES: No acute fracture is present. No bony destructive lesion is seen. JOINTS: The knee is normally aligned. No joint effusion is seen. SOFT TISSUE: Normal. IMPRESSION: Normal radiographs of the left knee. HPI General Mode of arrival: ambulatory . Date/Time Provider Initiated Documentation: 07/12/21 14:24 . Limitations to Documentation: no limitations . Information obtained by: patient . 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 Patient states her pain started in the middle of the day at the end of May. She denies any known injury but states pain is worse with walking and weightb earing. She was not aware of any fever, redness, or swelling. She states she took oxycodone from a friend for her pain with relief. She has not taken any Tylenol or Motrin. Related Data Home Medications Medication Instructions Recorded Confirmed acetaminophen [Tylenol] 650 mg PO PRN PRN 05/15/17 07/12/21 blood pressure monitor #1 each 02/13/20 albuterol sulfate 2 puff INHALATION Q6H PRN 07/19/20 07/12/21 glipizide 5 mg PO DAILY 07/19/20 07/12/21 sodium chloride [Saline Nasal] 2 spray INTRANASAL BID 07/19/20 07/12/21 Trulicity 1.5 mg SUBCUT QWEEK 05/06/21 07/12/21 lisinopril 5 mg PO DAILY 05/06/21 07/12/21 simvastatin 10 mg PO DAILY 05/06/21 07/12/21 promethazine 25 mg PO Q6H PRN #7 tab 05/07/21 07/12/21 prednisone See Rx Instructions .ROUTE 07/12/21 .COMPLEX #12 tab Previous Rx's Medication Instructions Recorded blood pressure monitor #1 each 02/13/20 promethazine 25 mg PO Q6H PRN #7 tab 05/07/21 prednisone See Rx Instructions .ROUTE 07/12/21 .COMPLEX #12 tab Allergies Allergy/AdvReac Type Severity Reaction Status Date / Time Sulfa (Sulfonamide Allergy Other (See Unverified 07/12/21 14:13 Antibiotics) Comment) Penicillins AdvReac Intermediate Hives Unverified 07/12/21 14:13 guaifenesin [From Robitussin] AdvReac Mild Nausea Unverified 07/12/21 14:13 General Stated Complaint: Orthopedic JUDITH: 4 Review of Systems All systems reviewed & are unremarkable except as noted in HPI and below Constitutional Constitutional: Reports as per HPI, Denies chills and Denies fever(s) Eyes Eyes: Denies blurry vision ENT Ears, Nose, Mouth, and Throat: Denies dizziness, Denies sore throat and Denies throat swelling Cardiovascular Cardiovascular: Denies chest pain and Denies dyspnea Respiratory Respiratory: Denies cough and Denies dyspnea Gastrointestinal Gastrointestinal: Denies abdominal pain, Denies diarrhea and Denies vomiting Genitourinary Genitourinary: Denies hematuria and Denies dysuria Musculoskeletal Musculoskeletal: Denies back pain, Denies numbness and Reports other (L knee pain) Integumentary/Breasts Skin/Breast: Denies lesions and Denies rash Neurologic Neurologic: Denies dizziness, Denies localized weakness and Denies numbness Allergic/Immunologic Allergic/Immunologic: Denies throat swelling [facility] Medical History (Updated 07/12/21 @ 16:03 by Kathie Montes DO) Diabetes HTN (hypertension) Hypertension Rheumatoid arthritis Surgical History H/O section H/O heart valve replacement with bioprosthetic valve History of bilateral tubal ligation History of hernia repair Social History Smoking/Tobacco Use Status: Current every day Tobacco Type: cigarettes and e- cigarettes Smoking risk assessment performed?: Yes Alcohol Intake: current Alcohol Intake frequency: a few times a month Drug use: Occasionally Substance use type: marijuana Do you feel safe at home: Yes Do you feel safe in your relationship?: Yes Exam Const General: cooperative and no acute distress HENMT Head: normal to inspection Mouth: oral mucosae normal Eyes General: appearance normal, both eyes and all related structures Neck Neck: normal visual inspection Resp Effort & Inspection: normal respiratory effort and able to speak in complete sentences Cardio Rate: regular rate Skin General skin exam: no rashes or lesions noted Neuro General: patient alert, patient awake and patient oriented x3 Motor: muscle tone normal throughout Extrem Other: Exquisite tenderness to palpation to entire knee, most specifically anterior aspect. There is faint erythema noted to the anterior aspect but no edema, ecchymosis, crepitus, fluctuance or induration. She has full range of motion without laxity or deformity noted. There is pain with range of motion but no significant limitation of range of motion. Left DP/PT pulses intact. Psych Appearance: grossly normal Affect: normal affect Course Vital Signs Vital signs: Vital Signs Temperature 97.5 F L 07/12/21 14:10 Pulse 109 H 07/12/21 14:10 Respiratory Rate 16 07/12/21 14:10 Blood Pressure 161/95 H 07/12/21 14:10 Pulse Oximetry 97 07/12/21 14:10 Temperature 97.5 F L 07/12/21 14:10 Temperature Source Skin 07/12/21 14:10 Pulse 109 H 07/12/21 14:10 Respiratory Rate 16 07/12/21 14:10 Respiratory Effort Non-Labored 07/12/21 14:10 Blood Pressure 161/95 H 07/12/21 14:10 Blood Pressure Position Sitting 07/12/21 14:10 Pulse Oximetry 97 07/12/21 14:10 Oxygen Delivery Method Room Air 07/12/21 14:10 Oxygen Flow Rate 0 07/12/21 14:10 Pain Level 7 07/12/21 14:17
--- NOTE | 2021-07-12 14:30 | DI.RAD_ITS ---
Exam(s) XR KNEE LT 3V AP,LAT,CHINMAY EXAM: XR KNEE LT 3V AP,LAT,CHINMAY CLINICAL HISTORY: L knee pain, r/o arthritis, effusion. TECHNIQUE: 2D digital imaging was performed. COMPARISON: CR RIGHT KNEE COMPLETE from 12/26/2017 FINDINGS: BONES: No acute fracture is present. No bony destructive lesion is seen. JOINTS: The knee is normally aligned. No joint effusion is seen. SOFT TISSUE: Normal. IMPRESSION: Normal radiographs of the left knee. DATA REPOSITORY: RADIATION DOSE DELIVERED:
[2021-07-12] MEDS: Ibuprofen 600 MG TAB PO (14:47)
[2021-07-12] MEDS: Acetaminophen 325 MG TAB 650 MG PO (14:47)
[2021-07-12 15:05] LABS: ESR 33 mm/hr (0-20)
[2021-07-12 15:15] LABS: C-Reactive Protein 3.57 mg/dL (0.0-0.3); Uric Acid 6.3 mg/dL (2.6-6.0)
[2021-07-12] MEDS: predniSONE 20 MG TAB 60 MG PO (15:45)
[2021-07-12 16:35] VITALS: BP 152/84; PULSE 87; RESP 16; TEMP 36.4; O2SAT 97
== END 2021-07-12 16:20 | disposition home or self-care (01) ==
PROVIDERS: Emergency Provider Physician Assistant; PCP Nurse Practitioner Family
DX: M25.562 Pain in left knee (principal); E11.9 Type 2 diabetes mellitus without complications
CPT/HCPCS: 36416; 73562; 80048; 82962; 85652; 99283; 84550; 86140; J7512

== ENCOUNTER 2021-09-17 22:50 | Emergency (ER) | payer MEDICARE, OTHER, MEDICAID, SELFPAY ==
[2021-09-17] VITALS (10 sets, daily range): BP systolic 126–155; BP diastolic 54–90; PULSE 94–105; RESP 16–25; TEMP 36.5; O2SAT 95–98
--- NOTE | 2021-09-17 22:45 | RT.EKG_ITS ---
APPROVED REPORT Exam: Resting ECG Reason for Exam: chest pain Patient Location: E HR:95 bpm ECG Measurements Heart Rate 95 AXIS MA 146 P 63 QRSd 169 QRS 126 QT 408 T 32 QTc 512 Conclusion Sinus rhythm...normal P axis, V-rate 60- 99 RBBB and LPFB...QRSd >120mS, axis(90,210)
--- NOTE | 2021-09-17 23:00 | DI.CT_ITS ---
Exam(s) CT CHEST PE CTA EXAM: CT CHEST PE CTA CLINICAL HISTORY: Chest Pain, Tachycardia, R/O PE. TECHNIQUE: Imaging Protocol: Axial CT angiography was performed with multi-slice acquisition and mu lti-planar and/or 3D reconstructions. CONTRAST MATERIAL: Intravenous: Omnipaque 350 Contrast volume:structured data in ml COMPARISON: CT CT ABDOMEN PELVIS W from 05/06/2021 FINDINGS: CT angiography of the chest was performed with intravenous infusion of 100 cc of Omnipaque 350. There is a median sternotomy and an apparent pulmonic valve replacement. The lungs are clear. No pleural effusion. Tracheobronchial tree appears intact. No evidence of pulmonary embolic disease. Thoracic aorta is of normal diameter, no thoracic aortic an eurysm or dissection, major branch vessels appear intact. No mediastinal or hilar adenopathy. Images obtained through the upper abdomen show unremarkable appearance of the visualized portions of the liver, spleen, and pancreas. IMPRESSION: Negative CT angiogram of the chest. No evidence of pulmonary embolic disease. RADIATION DOSE DELIVERED: 579.92mGy.cm Total DLP 579.92mGy.cm Total DLP CTDIvol DATA REPOSITORY: All CT scans at this facility are submitted to the National Radiology Data Registry (NRDR) Dose Index Registry (DIR) with the [employer] (A[employer]). RADIATION OPTIMIZATION: All CT scans at this facility use at least one of these dose optimization te chniques: automated exposure control; mA and/or kV adjustment per patient size (includes targeted exa ms where dose is matched to clinical indication); or iterative reconstruction.
--- NOTE | 2021-09-17 23:09 | ED.GENADUL_ITS ---
Discharge Plan Disposition Patient Disposition: HOME Condition: Stable Discharge Details Clinical Impression: Chest pain Primary Care Provider: Rachana Ochoa ED Provider: Good Brown Home Meds and New Rx's Prescriptions: Continued (DME) blood pressure monitor Kit See Rx Instructions .ROUTE .MEDSUPPLY Qty: 1 RF: 0 simvastatin 10 mg Tablet 10 mg PO DAILY RF: 0 lisinopril 5 mg Tablet 5 mg PO DAILY RF: 0 Trulicity 1.5 mg/0.5 mL Pen Injector 1.5 mg SUBCUT QWEEK RF: 0 promethazine 25 mg tablet 25 mg PO Q6H PRN (Reason: nausea and vomiting) Qty: 7 RF: 0 acetaminophen [Tylenol] 325 MG tablet 650 mg PO PRN PRNRF: 0 albuterol sulfate 90 mcg/actuation HFA aerosol inhaler 2 puff INHALATION Q6H PRNRF: 0 glipizide 5 mg tablet 5 mg PO DAILY RF: 0 sodium chloride [Saline Nasal] 0.65 % aerosol,spray 2 spray INTRANASAL BID RF: 0 prednisone 20 mg tablet See Rx Instructions .ROUTE .COMPLEX Qty: 12 RF: 0 Discharge Instructions Instructions: Chest Pain (ED) Additional Instructions: your blood work and cat scan did not show concerning findings at this time follow up with your primary care provider within 1 week if you feel more ill, have worsening pain or difficulty breathing return to the emergency department Discharge Data Discharge Date/Time-TO BE ENTERED AT DEPARTURE: 09/18/21 00:37 Medical Decision Making <Laurence Velez - Last Filed: 09/18/21 16:25> 35-year-old female presents to the ER with chief complaint of midsternal chest pain which began Sunday. Patient reports that it comes and goes. Associated with palpitations and tachycardia, shortness of breath with exertion and a nonproductive cough. She is a daily smoker. She does have a past medical history of Tetrology of Fallot's with heart valve replacement with bioprosthetic valve, hypertension, diabetes, rheumatoid arthritis and surgical history of hernia repair and tubal ligation. She is vaccinated for Covid. She denies any fever chills nausea vomiting diarrhea or any other associated symptoms. Cardiac work-up ordered including CBC, CMP, serial troponins, CT chest rule out PE and Covid test. EKG was reviewed by Dr. Talat Brown ER attending, please see his official report old EKG available for review patient is in a right bundle branch block no significant change from previous. Care is to be handed off to ER Dr. Brown pending CT chest rule out PE, troponin and remainder of labs including Covid test which is pending at this time. <Good Brown MD - Last Filed: 09/18/21 00:31> pt state she now feels well, no symptoms and denies any dyspnea now. Labs, covid test and cta negative for acute findings. She remains stable. She states this started after her significant other and I suspect her symptoms are related to stress/anxiety. She is stable for d/c, advised to f/u with pcp and return precautions given Imaging Data Radiologic Study: Attestation: I personally reviewed and interpreted this imaging study as follows: Imaging: CT Scan Radiologist's impression: IMPRESSION: 1. No pulmonary emboli are seen. 2. Minor air trapping, likely small airways disease. 3. Incidental findings as described. HPI <Laurence Velez - Last Filed: 09/18/21 16:25> General Mode of arrival: ambulatory . Date/Time Provider Initiated Documentation: 09/17/21 22:51 . Limitations to Documentation: no limitations . Information obtained by: patient, RN notes reviewed and old records reviewed . HPI Narrative: 35-year-old female presents to the ER with chief complaint of midsternal chest pain which began Sunday. Patient reports that it comes and goes. Associated with palpitations and tachycardia, shortness of breath with exertion and a nonproductive cough. She is a daily smoker. She does have a past medical history of tetrollogy of Fallotwith heart valve replacement with bioprosthetic valve, hypertension, diabetes, rheumatoid arthritis and surgical history of hernia repair and tubal ligation. She is vaccinated for Covid. She denies any fever chills nausea vomiting diarrhea or any other associated symptoms. Related Data Home Medications Medication Instructions Recorded Confirmed acetaminophen [Tylenol] 650 mg PO PRN PRN 05/15/17 09/17/21 blood pressure monitor #1 each 02/13/20 albuterol sulfate 2 puff INHALATION Q6H PRN 07/19/20 09/17/21 glipizide 5 mg PO DAILY 07/19/20 09/17/21 sodium chloride [Saline Nasal] 2 spray INTRANASAL BID 07/19/20 09/17/21 Trulicity 1.5 mg SUBCUT QWEEK 05/06/21 07/12/21 lisinopril 5 mg PO DAILY 05/06/21 09/17/21 simvastatin 10 mg PO DAILY 05/06/21 09/17/21 promethazine 25 mg PO Q6H PRN #7 tab 05/07/21 09/17/21 prednisone See Rx Instructions .ROUTE 07/12/21 .COMPLEX #12 tab Previous Rx's Medication Instructions Recorded blood pressure monitor #1 each 02/13/20 promethazine 25 mg PO Q6H PRN #7 tab 05/07/21 prednisone See Rx Instructions .ROUTE 07/12/21 .COMPLEX #12 tab Allergies Allergy/AdvReac Type Severity Reaction Status Date / Time Sulfa (Sulfonamide Allergy Other (See Unverified 09/17/21 23:21 Antibiotics) Comment) Penicillins AdvReac Intermediate Hives Unverified 09/17/21 23:21 guaifenesin [From Robitussin] AdvReac Mild Nausea Unverified 09/17/21 23:21 General Stated Complaint: Chest Pain JUDITH: 2 Review of Systems <Laurence Velez - Last Filed: 09/18/21 16:25> All systems reviewed & are unremarkable except as noted in HPI and below Cardiovascular Cardiovascular: Reports chest pain, Reports chest pain with activity, Denies leg edema and Reports dyspnea on exertion Respiratory Respiratory: Reports dyspnea on exertion Gastrointestinal Gastrointestinal: Denies abdominal pain, Denies diarrhea, Denies nausea and Denies vomiting PFS <Laurence Velez - Last Filed: 09/18/21 16:25> Active Problem List (Updated 09/18/21 @ 00:05 by Good Brown MD) Pyelonephritis (Acute) Dehydration (Acute) Hypokalemia (Acute) Hypocalcemia (Acute) Hypomagnesemia (Acute) Left knee pain (Acute) Chest pain (Acute) Medical History (Updated 09/18/21 @ 00:05 by Good Brown MD) Diabetes HTN (hypertension) Hypertension Rheumatoid arthritis Surgical History H/O section H/O heart valve replacement with bioprosthetic valve History of bilateral tubal ligation History of hernia repair Social History Smoking/Tobacco Use Status: Current every day Tobacco Type: cigarettes and e- cigarettes Smoking risk assessment performed?: Yes Alcohol Intake: current Alcohol Intake frequency: a few times a month Drug use: Occasionally Substance use type: marijuana Do you feel safe at home: Yes Do you feel safe in your relationship?: Yes Exam <Laurence Velez - Last Filed: 09/18/21 16:25> Narrative Exam Narrative: Constitutional: Alert and oriented x3. Appears stated age. Normal body habitus. Head: Normocephalic, no trauma. Eyes: Pupils PERRL, Red reflex noted, EOM's intact. Eyelids symmetrical without lesions, discharge, or swelling. ENT: Bilateral TM's WNL, External ear normal to inspection, no mastoid TTP, swelling, or erythema, Nasal turbinates WNL, no nasal discharge. Normal dentition, Posterior pharynx WNL, no exudate. Chest: Sinus tachycardia rate of 110, Normal S1, S2, distal pulses intact. Resp: Lungs clear to auscultation bilaterally, no wheezes, rales, or rhonchi. Abdomen: Soft, non-distended, Normoactive bowel sounds all 4 quads. Musculoskeletal: Normal gait, 5/5 strength to all four extremities. Skin: No suspicious rashes or lesions. Capillary refill less than 2 sec. Neurologic: Cranial nerves II-XII intact. Alert and oriented x 3. Motor: No deficits noted. Sensory: Intact bilaterally all 4 extremities. Reflexes: DTR's intact bilaterally.. Hematologic/Lymphatic: No ecchymosis, no lymphadenopathy. Course <Laurence Agustin - Last Filed: 09/18/21 16:25> Vital Signs Vital signs: Vital Signs Temperature 36.5 C 09/17/21 23:01 Pulse 102 H 09/17/21 23:01 Respiratory Rate 24 09/17/21 23:01 Blood Pressure 155/90 H 09/17/21 23:01 Pulse Oximetry 98 09/17/21 23:01 Temperature 36.5 C 09/17/21 23:01 Temperature Source Skin 09/17/21 23:01 Pulse 102 H 09/17/21 23:01 Respiratory Rate 24 09/17/21 23:01 Blood Pressure 155/90 H 09/17/21 23:01 Pulse Oximetry 98 09/17/21 23:01 Pain Level 7 09/17/21 23:01 Sign Out <Laurence Velez - Last Filed: 09/18/21 16:25> Sign Out Data: Sign Out Comment: 35 year old female presents with Chest pain since Sunday. Associated with SOB and cough. Is vaccinated for Covid. Hx of Tetrology of Fallot with Bioprosthetic valve, DM, Daily smoker. Given [address] chest R/O PE and remaining labs. Last updated by Laurence Velez at 09/17/21 23:43
[2021-09-17] MEDS: Aspirin 81 MG CHEW 324 MG CH (23:19)
[2021-09-17 23:31] LABS: Abs Immature Grans 0.04 10^3/uL (0.0-0.06); Absolute Basophil Count 0.07 10^3/uL (0.0-0.2); Absolute Lymphocyte Count 2.54 10^3/uL (1.2-3.4); Absolute Monocyte Count 0.69 10^3/uL (0.1-0.8); Absolute Neutrophil Count 10.07 10^3/uL (1.2-6.7); Basophils % 0.5; HCT 40.1 % (36.0-46.0); HGB 12.7 g/dL (11.2-15.7); Immature Grans % 0.3; Lymphocytes % 18.4; MCH 27.1 pg (27.0-33.0); MCHC 31.7 % (32.0-36.0); MCV 85.5 fL (80-95); MPV 10.1 fL (8.0-11.0); Neutrophils % 72.8; Nucleated RBC 0 %; Platelet Count 204 10^3/uL (130-400); RBC 4.69 10^6/uL (3.93-5.22); RDW 13.8 % (11.7-14.6); RDW-SD 43.2 fL; WBC 13.83 10^3/uL (4.4-10.8)
[2021-09-17 23:32] LABS: Absolute Eosinophil Count 0.41 10^3/uL (0.0-0.7)
[2021-09-17 23:33] LABS: Source Nasal/Nares
[2021-09-17 23:47] LABS: ALT 18 U/L (14-59); AST 12 U/L (15-37); Albumin 3.2 g/dL (3.4-5.0); Alkaline Phosphatase 79 U/L (46-116); Anion Gap 9.3 mmol/L (3-11); BUN 9 mg/dL (7-18); Bilirubin, Total 0.3 mg/dL (0.2-1.0); CO2 27.7 mmol/L (21.0-32.0); CREATININE 0.8 mg/dL (0.55-1.02); Calcium 8.3 mg/dL (8.5-10.1); Chloride 100 mmol/L (98-107); Glucose 159 mg/dL (74-106); Potassium 3.8 mmol/L (3.5-5.1); Sodium 137 mmol/L (136-145); Total Protein 7.3 g/dL (6.4-8.2)
[2021-09-17 23:54] LABS: Troponin I < 0.05 ng/mL (<0.06)
[2021-09-18] VITALS: PULSE 98; RESP 20; O2SAT 95
[2021-09-18] MEDS: Omnipaque 350 MG/ML 100 ML BTL IJ (00:06)
--- NOTE | 2021-09-18 00:06 | DI.VRAD_ITS ---
PROCEDURE INFORMATION: Exam: CTA Chest With Contrast Exam date and time: 09/17/2021 23:10 Age: 35 years old Clinical indication: Other: Chest pain tachycardia R/O pe; Prior surgery; Surgery date: 6+ months; Surgery type: 2 open heart surgeries TECHNIQUE: Imaging protocol: Computed tomographic angiography of the chest with contrast. 3D rendering (Not supervised by radiologist): MIP and/or 3D reconstructed images were created by the technologist. Radiation optimization: All CT scans at this facility use at least one of these dose optimization techniques: automated exposure control; mA and/or kV adjustment per patient size (includes targeted exams where dose is matched to clinical indication); or iterative reconstruction. Contrast material: OMNI 350; Contrast volume: 100 ml; Contrast route: INTRAVENOUS (IV); COMPARISON: CT ABDOMEN PELVIS W 05/06/2021 21:21 FINDINGS: Pulmonary arteries: See Lungs finding. Aorta: No aortic aneurysm. No aortic dissection. Lungs: Minor scattered air trapping. No convincing ground-glass opacities. No airspace consolidation. Postsurgical changes in the PA trunk. Prostatic pulmonic valve. No pulmonary artery filling defects are seen. Pleural spaces: No pneumothorax. No pleural effusion. Heart: Mild cardiomegaly. Lymph nodes: No enlarged lymph nodes. Bones/joints: Median sternotomy wires. No acute fracture or subluxation. Soft tissues: No suspicious lesions. IMPRESSION: 1. No pulmonary emboli are seen. 2. Minor air trapping, likely small airways disease. 3. Incidental findings as described. Dictated and Authenticated by: Adriana Kent MD. Ordering:ARIANE Dang MD
[2021-09-18 00:10] VITALS: PULSE 96; RESP 22; O2SAT 95
[2021-09-18 00:20] VITALS: PULSE 100; RESP 19; O2SAT 96
[2021-09-18 00:24] LABS: COVID-19 PCR Negative (Negative)
[2021-09-18 00:30] VITALS: BP 139/66; PULSE 92; PULSE 99; RESP 26
== END 2021-09-18 00:37 | disposition home or self-care (01) ==
PROVIDERS: Registered Nurse Emergency; Emergency Provider Emergency Medicine; PCP Nurse Practitioner Family
DX: R07.9 Chest pain, unspecified (principal); R00.0 Tachycardia, unspecified
CPT/HCPCS: 36415; 71275; 80053; 87635; 93005; 99285; 83735; 84484; 85025; 93010; 99284; J3490

== ENCOUNTER 2021-11-09 09:54 | Emergency (ER) | payer MEDICARE, MEDICAID, SELFPAY ==
[2021-11-09 10:03] VITALS: BP 158/94; PULSE 88; RESP 16; TEMP 36.5; O2SAT 97
--- NOTE | 2021-11-09 10:28 | ED.GENADUL_ITS ---
Discharge Plan Disposition Patient Disposition: HOME Condition: Stable Discharge Details Clinical Impression: Cough Primary Care Provider: Rachana Ochoa ED Provider: Parvez Mcdaniel Home Meds and New Rx's Prescriptions: Continued (DME) blood pressure monitor Kit See Rx Instructions .ROUTE .MEDSUPPLY Qty: 1 RF: 0 simvastatin 10 mg Tablet 10 mg PO DAILY RF: 0 lisinopril 5 mg Tablet 5 mg PO DAILY RF: 0 Trulicity 1.5 mg/0.5 mL Pen Injector 1.5 mg SUBCUT QWEEK RF: 0 promethazine 25 mg tablet 25 mg PO Q6H PRN (Reason: nausea and vomiting) Qty: 7 RF: 0 acetaminophen [Tylenol] 325 MG tablet 650 mg PO PRN PRNRF: 0 albuterol sulfate 90 mcg/actuation HFA aerosol inhaler 2 puff INHALATION Q6H PRNRF: 0 glipizide 5 mg tablet 5 mg PO DAILY RF: 0 Saline Nasal 0.65 % aerosol,spray 2 spray INTRANASAL BID RF: 0 prednisone 20 mg tablet See Rx Instructions .ROUTE .COMPLEX Qty: 12 RF: 0 Discharge Instructions Instructions: Acute Cough (ED) Additional Instructions: Your chest x-ray does not reveal any signs of pneumonia. I strongly recommend that you quit smoking. Djpw-fbk-[id number] medications as directed for symptomatic control. Your COVID test is pending but given your mother is COVID-positive and he has had close contact with her, this very well is COVID. I recommend quarantining until your test has resulted negative, hopefully in the next 2-3 days, you will need to quarantine longer if your test is positive and you remain symptomatic. Please watch for new or worsening symptoms and return to the ER for any concerns. Lastly, please contact your primary care provider later today or tomorrow to discuss your ER visit, need for outpatient reevaluation, and if you are COVID test is positive, potential monoclonal antibody infusion Stand Alone Forms: Work Release Discharge Data Discharge Date/Time-TO BE ENTERED AT DEPARTURE: 11/09/21 11:32 Medical Decision Making This is a 35-year-old female who reports 5-day history of dry cough and nasal congestion, reports testing negative on Sunday for COVID but her mother did test positive whom she lives with and she is hospitalized, leaving the hospital today. Clinically the patient appears well, nontoxic, pulse in the 80s, respirations 18, afebrile, O2 sat 97% on room air. She is able to speak in full sentences and does not require any supplemental oxygen. I am concerned that her test on Sunday may have been a false negative. I believe she needs to be tested for COVID once again today and I will obtain a chest x-ray to rule out pneumonia although clinically low suspicion Chest x-ray negative for pneumonia, I see no clear indication for antibiotic therapy. Patient provided with suspected COVID diagnosis precautions and we discussed the importance of quarantining. We discussed the importance of [id number] medications as directed for symptomatic control. Strict discharge and return precautions provided This documentation was generated using ezeepation system, please disregard any oddities of phrase or misspellings. Medical Records Medical records reviewed: Yes I reviewed the patient's medical records. Imaging Data Radiologic Study: Attestation: I personally reviewed and interpreted this imaging study as follows: Imaging: X-Ray Radiologist's impression: Exam(s) XR PORTABLE CHEST AP EXAM: XR PORTABLE CHEST AP CLINICAL HISTORY: cough. TECHNIQUE: 2D digital imaging was performed. COMPARISON: CR XR CHEST 2V PA LATERAL from 10/19/2018 CR,XR XR PORTABLE CHEST AP from 07/19/2020 FINDINGS: Cardiomegaly and sternotomy wires again noted. There is a prosthetic valve. This is most probably related to pediatric cardiac surgery. The mediastinum is not widened. Lungs are clear. No infiltrates nor obvious pleural effusions. There is no obvious abnormal shunt vascularity in the lung goins. Also no evidence of pulmonary edema. IMPRESSION: No acute pulmonary findings on this single AP portable view of the chest. Cardiac findings as above. Lab Data Lab results reviewed: Yes I reviewed the patient's lab results. Labs: COVID pending HPI General Mode of arrival: ambulatory . Date/Time Provider Initiated Documentation: 11/09/21 10:15 . Limitations to Documentation: no limitations . Information obtained by: patient . HPI Narrative: This is a 35-year-old female, past medical history of hypertension, diabetes, RA, heart valve replacement at the age of 8 months and again in 2013, presents to the ER for evaluation of dry cough for the past 5 days. Patient states that she began with symptoms Sunday evening, had a negative COVID test Sunday morning. She initially told triage that her mother, whom she lives with, tested negative on Sunday for COVID; however, she tells me that her mother tested positive, was subsequently admitted to our facility, and is scheduled to be discharged from our hospital at around 11 AM this morning. Patient states that she takes all of her medications as directed. She smokes approximately 1 pack of cigarettes daily. She denies headache, ear pain, sore throat, shortness of breath, abdominal pain, nausea, vomiting, pain or swelling in her legs. She denies any fever. She states that she took DayQuil yesterday but no medications today. Patient reports that she is fully vaccinated against COVID including a booster. Patient denies history of IV Related Data Home Medications Medication Instructions Recorded Confirmed acetaminophen [Tylenol] 650 mg PO PRN PRN 05/15/17 11/09/21 blood pressure monitor #1 each 02/13/20 Saline Nasal 2 spray INTRANASAL BID 07/19/20 11/09/21 albuterol sulfate 2 puff INHALATION Q6H PRN 07/19/20 11/09/21 glipizide 5 mg PO DAILY 07/19/20 11/09/21 Trulicity 1.5 mg SUBCUT QWEEK 05/06/21 11/09/21 lisinopril 5 mg PO DAILY 05/06/21 11/09/21 simvastatin 10 mg PO DAILY 05/06/21 11/09/21 promethazine 25 mg PO Q6H PRN #7 tab 05/07/21 11/09/21 prednisone See Rx Instructions .ROUTE 07/12/21 .COMPLEX #12 tab Previous Rx's Medication Instructions Recorded blood pressure monitor #1 each 02/13/20 promethazine 25 mg PO Q6H PRN #7 tab 05/07/21 prednisone See Rx Instructions .ROUTE 07/12/21 .COMPLEX #12 tab Allergies Allergy/AdvReac Type Severity Reaction Status Date / Time Sulfa (Sulfonamide Allergy Other (See Unverified 11/09/21 10:16 Antibiotics) Comment) Penicillins AdvReac Intermediate Hives Unverified 11/09/21 10:16 guaifenesin [From Robitussin] AdvReac Mild Nausea Unverified 11/09/21 10:16 General Stated Complaint: RespSymp JUDITH: 3 Review of Systems Constitutional Constitutional: Denies fever(s) and Denies headache(s) ENT Ears, Nose, Mouth, and Throat: Denies headache(s), Reports nasal congestion and Denies sore throat Cardiovascular Cardiovascular: Denies chest pain and Denies dyspnea Respiratory Respiratory: Reports cough and Denies dyspnea Gastrointestinal Gastrointestinal: Denies abdominal pain, Denies nausea and Denies vomiting Musculoskeletal Musculoskeletal: Denies back pain and Denies myalgias Integumentary/Breasts Skin/Breast: Denies rash Neurologic Neurologic: Denies headache(s) PFSH All Active Problems (Updated 11/09/21 @ 11:22 by JAMA Moody) Pyelonephritis (Acute) Dehydration (Acute) Hypokalemia (Acute) Hypocalcemia (Acute) Hypomagnesemia (Acute) Left knee pain (Acute) Chest pain (Acute) Cough (Acute) Medical History (Updated 11/09/21 @ 11:22 by JAMA Moody) Diabetes HTN (hypertension) Hypertension Rheumatoid arthritis Surgical History H/O section H/O heart valve replacement with bioprosthetic valve History of bilateral tubal ligation History of hernia repair Social History Smoking/Tobacco Use Status: Current every day Tobacco Type: cigarettes and e- cigarettes Smoking risk assessment performed?: Yes Alcohol Intake: current Alcohol Intake frequency: a few times a month Drug use: Occasionally Substance use type: marijuana Do you feel safe at home: Yes Additional Social history: recently lost boyfriend to an overdose Exam Const General: cooperative, healthy appearing, comfortable and no acute distress Orientation: alert and awake [facility] Head: normal to inspection, normocephalic and atraumatic Face and sinus: normal facial exam Mouth: moist mucous membranes Throat: posterior oropharynx normal Eyes General: appearance normal, both eyes and all related structures Conjunctivae: conjunctivae normal Neck Neck: normal visual inspection, full ROM, no lymphadenopathy, no meningeal signs, trachea midline, supple and nontender Resp Effort & Inspection: normal respiratory effort, able to speak in complete sentences and cough Quality of cough: dry (Mild) Auscultation: wheezes (Rare, scattered, clear with coughing) Cardio Rate: regular rate Rhythm: regular rhythm GI Palpation: soft and nontender Skin General skin exam: no rashes or lesions noted Neuro General: patient alert, patient awake, moves all extremities and no focal motor deficits Cognition: normal cognition Speech: speech normal Gait: normal gait Sensory Exam: no sensory deficits noted Extrem General: normal to inspection, full ROM, capillary refill normal and no calf tenderness Psych Appearance: grossly normal Mental Status: mental status grossly normal Course Vital Signs Vital signs: Vital Signs Temperature 36.5 C 11/09/21 10:03 Pulse 88 11/09/21 10:03 Respiratory Rate 16 11/09/21 10:03 Blood Pressure 158/94 H 11/09/21 10:03 Pulse Oximetry 97 11/09/21 10:03 Temperature 36.5 C 11/09/21 10:03 Temperature Source Skin 11/09/21 10:03 Pulse 88 11/09/21 10:03 Respiratory Rate 16 11/09/21 10:03 Respiratory Effort 11/09/21 10:13 Blood Pressure 158/94 H 11/09/21 10:03 Blood Pressure Position Sitting 11/09/21 10:03 Pulse Oximetry 97 11/09/21 10:03 Oxygen Delivery Method Room Air 11/09/21 10:03 Oxygen Flow Rate 0 11/09/21 10:03 Pain Level 5 11/09/21 10:03 PAWSS Have you Been Recently Intoxicated or Drunk Within the Last 30 days?: No Have you Ever Experienced Previous Episodes of Alcohol Withdrawal?: No Have you ever Experienced Withdrawal Seizures?: No Have you ever Experienced Delirium Tremens(DT)s?: No Have you ever undergone Alcohol Rehabilitation Treatment (i.e, inpt ot outpatient treatment programs)?: No Have you ever Experienced Blackouts?: No Have you ever Combined Alcohol with other Downers within the last 90 days?: No Have you ever Combined Alcohol with any other Substance of Abuse during the last 90 days?: No Positive Blood Alcohol level on Presentation? [PCS.BAL]: No Evidence of Increased Autonomic Activity (i.e. HR>120, tremor, sweating, agitation, nausea)?: No Result: 0
--- NOTE | 2021-11-09 10:40 | DI.RAD_ITS ---
Exam(s) XR PORTABLE CHEST AP EXAM: XR PORTABLE CHEST AP CLINICAL HISTORY: cough. TECHNIQUE: 2D digital imaging was performed. COMPARISON: CR XR CHEST 2V PA LATERAL from 10/19/2018 CR,XR XR PORTABLE CHEST AP from 07/19/2020 FINDINGS: Cardiomegaly and sternotomy wires again noted. There is a prosthetic valve. This is most probably r elated to pediatric cardiac surgery. The mediastinum is not widened. Lungs are clear. No infiltrates nor obvious pleural effusions. There is no obvious abnormal shunt vascularity in the lung goins. Also no evidence of pulmonary kirsten ma. IMPRESSION: No acute pulmonary findings on this single AP portable view of the chest. Cardiac findings as above. DATA REPOSITORY: RADIATION DOSE DELIVERED: All CT scans at this facility use at least one of these dose optimization techniques: automated exposure control; mA and/or kV adjustment per patient size (includes targeted e xams where dose is matched to clinical indication); or iterative reconstruction.
[2021-11-10 15:46] LABS: COVID-19 RT-PCR UVMMC Result Positive (Negative)
--- NOTE | 2021-11-10 16:25 | ED.FU.B_ITS ---
Covid result received - patient is positive. I called contact number in record. I discussed results with the patient and addressed questions. Patient notes that she is feeling significantly better. She is unfortunately outside therapeutic window for oral agents and given scarcity of monoclonal antibody and fact that she is improving, she is not eligible to receive monoclonal antibody. Recommended that she stay home and isolate for the next 5 days, rest and maintain adequate hydration. I recommended she follow-up with her primary care physician. I reviewed [facility] isolation guidelines with the patient.
== END 2021-11-09 11:32 | disposition home or self-care (01) ==
PROVIDERS: Emergency Provider Physician Assistant; PCP Nurse Practitioner Family
DX: U07.1 COVID-19 (principal); F17.210 Nicotine dependence, cigarettes, uncomplicated
CPT/HCPCS: 99283; U0003; U0005; 71045

== ENCOUNTER 2021-11-18 12:51 | Emergency (ER) | payer MEDICARE, MEDICAID, SELFPAY ==
[2021-11-18 12:58] VITALS: BP 148/93; PULSE 105; RESP 12; TEMP 37.2; O2SAT 98
[2021-11-18] MEDS: Tetracaine 0.5% 4 ML BTL OP (13:16)
[2021-11-18] MEDS: Fluorescein STRIPS 100/BOX 1 MG OP (13:16)
--- NOTE | 2021-11-18 13:23 | ED.GENADUL_ITS ---
Discharge Plan Disposition Patient Disposition: HOME Condition: Good Discharge Details Clinical Impression: Conjunctivitis Primary Care Provider: Rachana Ochoa ED Provider: Corinne Marcial Home Meds and New Rx's Prescriptions: New erythromycin 5 mg/gram (0.5 %) ointment 0.5 inch ophthalmic (eye) TID Qty: 3.5 RF: 0 Continued (DME) blood pressure monitor Kit See Rx Instructions .ROUTE .MEDSUPPLY Qty: 1 RF: 0 simvastatin 10 mg Tablet 10 mg PO DAILY RF: 0 lisinopril 5 mg Tablet 5 mg PO DAILY RF: 0 Trulicity 1.5 mg/0.5 mL Pen Injector 1.5 mg SUBCUT QWEEK RF: 0 promethazine 25 mg tablet 25 mg PO Q6H PRN (Reason: nausea and vomiting) Qty: 7 RF: 0 acetaminophen [Tylenol] 325 MG tablet 650 mg PO PRN PRNRF: 0 albuterol sulfate 90 mcg/actuation HFA aerosol inhaler 2 puff INHALATION Q6H PRNRF: 0 glipizide 5 mg tablet 5 mg PO DAILY RF: 0 Saline Nasal 0.65 % aerosol,spray 2 spray INTRANASAL BID RF: 0 Discharge Instructions Instructions: Conjunctivitis (ED) Additional Instructions: Please follow-up with the eye doctor at [facility] in [facility] use topical allergy drops for eye use lubricating eye drops with persistent symptoms in the morning, please try erythromycin Please return earlier with vision change, worsening pain, or should he have any new or progressing symptoms Stand Alone Forms: Work Release Discharge Data Discharge Date/Time-TO BE ENTERED AT DEPARTURE: 11/18/21 14:03 Medical Decision Making Patient has clear drainage from eye, low suspicion for bacterial conjunctivitis, I suspect either allergic or viral conjunctivitis, I did recommend using allergy eyedrops and lubricating eyedrops for 24 hours, I did prescribe erythromycin ointment if patient is persistently symptomatic She should follow-up with should be on Sunday should she have persistent symptoms despite these interventions Return precautions discussed the patient understanding No evidence of keratitis, iritis, or uveitis on patient's exam today Call patient is COVID-positive, she has not, tachypneic, or tachycardic, she is resting comfortably in room Work note applied Discharged home stable condition with stable vital Medical Records Medical records reviewed: Yes I reviewed the patient's medical records. HPI General Mode of arrival: ambulatory . Date/Time Provider Initiated Documentation: 11/18/21 13:10 . Limitations to Documentation: no limitations . Information obtained by: patient . HPI Narrative: Left 35-year-old female presents with reports right eye irritation. States that she had symptoms of 30 yesterday. She states that he had watery drainage and crusting. Denies any left eye involvement. Denies any vision change. Does not wear any corrective lenses. Denies any headache. Was diagnosed with COVID-19 on 10 November. Denies any fever or chills. Denies any pain with eye movement. Denies any light sensitivity. Denies any known trauma to the affected eye. Related Data Home Medications Medication Instructions Recorded Confirmed acetaminophen [Tylenol] 650 mg PO PRN PRN 05/15/17 11/18/21 blood pressure monitor #1 each 02/13/20 Saline Nasal 2 spray INTRANASAL BID 07/19/20 11/18/21 albuterol sulfate 2 puff INHALATION Q6H PRN 07/19/20 11/18/21 glipizide 5 mg PO DAILY 07/19/20 11/18/21 Trulicity 1.5 mg SUBCUT QWEEK 05/06/21 11/18/21 lisinopril 5 mg PO DAILY 05/06/21 11/18/21 simvastatin 10 mg PO DAILY 05/06/21 11/18/21 promethazine 25 mg PO Q6H PRN #7 tab 05/07/21 11/18/21 erythromycin 0.5 inch OPHTHALMIC (EYE) TID #3.5 11/18/21 g Previous Rx's Medication Instructions Recorded blood pressure monitor #1 each 02/13/20 promethazine 25 mg PO Q6H PRN #7 tab 05/07/21 erythromycin 0.5 inch OPHTHALMIC (EYE) TID #3.5 11/18/21 g Allergies Allergy/AdvReac Type Severity Reaction Status Date / Time Sulfa (Sulfonamide Allergy Other (See Unverified 11/18/21 13:04 Antibiotics) Comment) Penicillins AdvReac Intermediate Hives Unverified 11/18/21 13:04 guaifenesin [From Robitussin] AdvReac Mild Nausea Unverified 11/18/21 13:04 General Stated Complaint: EyeProblem JUDITH: 5 Review of Systems All systems reviewed & are unremarkable except as noted in HPI and below PFSH All Active Problems (Updated 11/18/21 @ 13:49 by JAMA Hollingsworth) Pyelonephritis (Acute) Dehydration (Acute) Hypokalemia (Acute) Hypocalcemia (Acute) Hypomagnesemia (Acute) Left knee pain (Acute) Chest pain (Acute) Cough (Acute) Conjunctivitis (Acute) Medical History (Updated 11/18/21 @ 13:49 by JAMA Hollingsworth) Diabetes HTN (hypertension) Hypertension Rheumatoid arthritis Surgical History H/O section H/O heart valve replacement with bioprosthetic valve History of bilateral tubal ligation History of hernia repair Social History Smoking/Tobacco Use Status: Current every day Tobacco Type: cigarettes and e- cigarettes Smoking risk assessment performed?: Yes Alcohol Intake: current Alcohol Intake frequency: a few times a month Drug use: Occasionally Substance use type: marijuana Do you feel safe at home: Yes Do you feel safe in your relationship?: Yes Additional Social history: recently lost boyfriend to an overdose Exam Const General: cooperative, comfortable and no acute distress HENMT Head: normal to inspection Eyes Conjunctivae: other Pupils: PERRL Eyes/upper lids images: 1. Conjunctivitis noted, no lesions, no cellulitis, extraocular muscles intact, no proptosis Resp Effort & Inspection: normal respiratory effort Auscultation: clear to auscultation bilaterally Cardio Rate: regular rate Rhythm: regular rhythm Neuro General: patient alert and patient oriented x3 Course Vital Signs Vital signs: Vital Signs Temperature 37.2 C 11/18/21 12:58 Pulse 105 H 11/18/21 12:58 Respiratory Rate 12 11/18/21 12:58 Blood Pressure 148/93 H 11/18/21 12:58 Pulse Oximetry 98 11/18/21 12:58 Temperature 37.2 C 11/18/21 12:58 Temperature Source Temporal Artery Scan 11/18/21 12:58 Pulse 105 H 11/18/21 12:58 Respiratory Rate 12 11/18/21 12:58 Respiratory Effort Non-Labored 11/18/21 13:03 Blood Pressure 148/93 H 11/18/21 12:58 Blood Pressure Position Sitting 11/18/21 12:58 Pulse Oximetry 98 11/18/21 12:58 Oxygen Delivery Method Room Air 11/18/21 12:58 Oxygen Flow Rate 0 11/18/21 12:58 Pain Level 1 11/18/21 12:58 PAWSS Have you Been Recently Intoxicated or Drunk Within the Last 30 days?: No Have you Ever Experienced Previous Episodes of Alcohol Withdrawal?: No Have you ever Experienced Withdrawal Seizures?: No Have you ever Experienced Delirium Tremens(DT)s?: No Have you ever undergone Alcohol Rehabilitation Treatment (i.e, inpt ot outpatient treatment programs)?: No Have you ever Experienced Blackouts?: No Have you ever Combined Alcohol with other Downers within the last 90 days?: No Have you ever Combined Alcohol with any other Substance of Abuse during the last 90 days?: No Positive Blood Alcohol level on Presentation? [PCS.BAL]: No Evidence of Increased Autonomic Activity (i.e. HR>120, tremor, sweating, agitation, nausea)?: No Result: 0
== END 2021-11-18 14:03 | disposition home or self-care (01) ==
PROVIDERS: Emergency Provider Physician Assistant; PCP Nurse Practitioner Family
DX: H10.31 Unspecified acute conjunctivitis, right eye (principal); U07.1 COVID-19
CPT/HCPCS: 99283

== ENCOUNTER 2021-12-06 18:12 | Outpatient (CLI) | payer OTHER, SELFPAY ==
--- NOTE | 2021-12-06 | DI.RAD_ITS ---
Exam(s) XR WRIST LT COMPLETE EXAM: XR WRIST LT COMPLETE CLINICAL HISTORY: PAIN AND SWELLING LT WRIST M25.532. TECHNIQUE: 2D digital imaging was performed of the left wrist. Three images were obtained. PA, obl ique and lateral views were obtained. COMPARISON: No exams were available for comparison FINDINGS: BONES: No acute fracture is present. No bony destructive lesion is seen. JOINTS: The carpal bones are normally aligned. SOFT TISSUE: Normal. IMPRESSION: Unremarkable radiographs of the left wrist. DATA REPOSITORY: RADIATION DOSE DELIVERED:
== END 2021-12-06 18:32 ==
PROVIDERS: PCP Nurse Practitioner Family; Visit Provider Nurse Practitioner Family
DX: M25.532 Pain in left wrist (principal); M79.89 Other specified soft tissue disorders
CPT/HCPCS: 73110

== ENCOUNTER 2022-01-26 18:38 | Emergency (ER) | payer MEDICARE, MEDICAID, SELFPAY ==
[2022-01-26 18:42] VITALS: BP 156/91; PULSE 120; RESP 18; TEMP 36.5; O2SAT 95
--- NOTE | 2022-01-26 18:42 | ED.GENADUL_ITS ---
Discharge Plan Disposition Patient Disposition: HOME Condition: Stable Discharge Details Clinical Impression: Knee pain, right Primary Care Provider: Rachana Ochoa ED Provider: Parvez Mcdaniel Home Meds and New Rx's Prescriptions: Continued (DME) blood pressure monitor Kit See Rx Instructions .ROUTE .MEDSUPPLY Qty: 1 0RF Rx Instructions: As directed simvastatin 10 mg Tablet 10 mg PO DAILY 0RF lisinopril 5 mg Tablet 5 mg PO DAILY 0RF Trulicity 1.5 mg/0.5 mL Pen Injector 1.5 mg SUBCUT QWEEK 0RF promethazine 25 mg tablet 25 mg PO Q6H PRN (Reason: nausea and vomiting) Qty: 7 0RF acetaminophen [Tylenol] 325 MG tablet 650 mg PO PRN PRN0RF albuterol sulfate 90 mcg/actuation HFA aerosol inhaler 2 puff INHALATION Q6H PRN0RF Label Comments: INL 2 PFS PO Q 4 TO 6 H PRF COUGH OR SOB glipizide 5 mg tablet 5 mg PO DAILY 0RF Label Comments: TK 1 T PO QD Saline Nasal 0.65 % aerosol,spray 2 spray INTRANASAL BID 0RF Label Comments: U 2 SPRAYS IEN BID PRN meloxicam 15 mg tablet 15 mg PO DAILY 0RF Label Comments: TAKE 1 TABLET BY MOUTH EVERY DAY Discharge Instructions Instructions: Knee Pain (ED) Additional Instructions: X-ray does not reveal any obvious emergent process. Wear brace as needed, advance activity as tolerated. Continue taking meloxicam and also [id number] Tylenol as directed. Rest, elevate, cool compresses every 2 hours for 20 minutes. Please watch for new or worsening symptoms and return to the ER for any concerns. Lastly, I have given you the orthopedic information, if conservative measures not helping the next 3-5 days I recommend reaching out separate appointment. Referrals: Josué Steiner MD [ [facility] STAFF PHYSICIAN] - Medical Decision Making This is a 36-year-old female who reports getting out of a car 3 days ago, stepping awkwardly and feeling a pop in her right knee. She has had pain in her right knee ever since now radiating up into her hip. She denies injury to that knee previously. Denies fever, chest pain, shortness of breath, pain or swelling in her calf. Clinically she appears well, nontoxic. She does present with mild tachycardia but she had just walked into the department from outside. Will check her heart rate at rest. Extremely low suspicion for DVT. Examination of the knee is difficult secondary to guarding, but she has full range of motion, neuro, vascular, tendon intact. Plan is to obtain x-ray and reassess. She took Tylenol yesterday one time but took no medication since then. Repeat heart rate now 96. Patient tells me that she actually takes meloxicam daily but initially forgot that medication. X-ray unremarkable Discussed x-ray findings with patient. Discussed treatment options. Patient agreeable to a hinged knee brace but declines crutches. Will also give orthopedic referral. Standard discharge and return precautions were provided This documentation was generated using Pay with a Tweetation system, please disregard any oddities of phrase or misspellings. Medical Records Medical records reviewed: Yes I reviewed the patient's medical records. Imaging Data Radiologic Study: Attestation: I personally reviewed and interpreted this imaging study as follows: Radiologist's impression: PROCEDURE INFORMATION: Exam: XR Right Knee Exam date and time: 01/26/2022 7:18 PM Age: 36 years old Clinical indication: Injury or trauma; Other: Stepped awkwardly, felt a pop; Sprain or strain; Patella or knee; Right TECHNIQUE: Imaging protocol: XR Right knee. Views: 4 or more views. COMPARISON: CR RIGHT KNEE COMPLETE 12/26/2017 11:27 PM FINDINGS: Bones/joints: No evidence of fracture. Negative for dislocation. Negative for bony erosion or destructive change. Patella tracks normally. Mild medial compartment narrowing and osteophyte. Soft tissues: Negative for soft tissue air. No foreign bodies observed. IMPRESSION: No acute osseous abnormality. If symptoms persist, follow- up imaging is advised. HPI General Mode of arrival: ambulatory . Date/Time Provider Initiated Documentation: 01/26/22 18:42 . Limitations to Documentation: no limitations . Information obtained by: patient . History of Present Illness 36 year old F presents to the emergency department with the chief complaint of R knee pain, described as moderate, with intensity rated at 7. Quality is described as aching, and is localized to the right and lower extremity. Patient reports no radiation. Patient started experiencing this day(s) (3) and it has been constant. improves with Immobilization improves symptom(s), Movement worsens symptoms . Patient notes other (Now with R hip pain). Patient did receive the following treatments prior to arrival, other (Acetaminophen yesterday) Related Data Home Medications Medication Instructions Recorded Confirmed acetaminophen 325 mg tablet 650 mg PO PRN PRN 05/15/17 01/26/22 (Tylenol) blood pressure monitor #1 each 02/13/20 albuterol sulfate 90 mcg/actuation 2 puff INHALATION Q6H PRN 07/19/20 01/26/22 aerosol inhaler glipizide 5 mg tablet 5 mg PO DAILY 07/19/20 01/26/22 sodium chloride 0.65 % nasal spray 2 spray INTRANASAL BID 07/19/20 01/26/22 aerosol (Saline Nasal) dulaglutide 1.5 mg/0.5 mL 1.5 mg SUBCUT QWEEK 05/06/21 01/26/22 subcutaneous pen injector (Trulicity) lisinopril 5 mg tablet 5 mg PO DAILY 05/06/21 12/07/21 simvastatin 10 mg tablet 10 mg PO DAILY 05/06/21 01/26/22 promethazine 25 mg tablet 25 mg PO Q6H PRN #7 tab 05/07/21 01/26/22 meloxicam 15 mg tablet 15 mg PO DAILY 01/26/22 01/26/22 Previous Rx's Medication Instructions Recorded blood pressure monitor #1 each 02/13/20 promethazine 25 mg tablet 25 mg PO Q6H PRN #7 tab 05/07/21 Allergies Allergy/AdvReac Type Severity Reaction Status Date / Time Sulfa (Sulfonamide Allergy Other (See Unverified 01/26/22 18:46 Antibiotics) Comment) Penicillins AdvReac Intermediate Hives Unverified 01/26/22 18:46 [email or web address] [From Robitussin] AdvReac Mild Nausea Unverified 01/26/22 18:46 General JUDITH: 5 Review of Systems Constitutional Constitutional: Denies fever(s) and Denies weakness Cardiovascular Cardiovascular: Denies chest pain and Denies dyspnea Respiratory Respiratory: Denies dyspnea Musculoskeletal Musculoskeletal: Denies deformity, Reports arthralgias, Denies numbness, Reports stiffness and Denies tingling Integumentary/Breasts Skin/Breast: Denies erythema Neurologic Neurologic: Denies numbness, Denies tingling and Denies weakness PFSH All Active Problems (Updated 01/26/22 @ 19:55 by JAMA Moody) Knee pain, right (Acute) Acute pain of left wrist (Acute) Pyelonephritis (Acute) Dehydration (Acute) Hypokalemia (Acute) Hypocalcemia (Acute) Hypomagnesemia (Acute) Left knee pain (Acute) Chest pain (Acute) Medical History (Updated 01/26/22 @ 19:55 by JAMA Moody) Diabetes HTN (hypertension) Hypertension Rheumatoid arthritis Surgical History H/O section H/O heart valve replacement with bioprosthetic valve History of bilateral tubal ligation History of hernia repair Social History Smoking/Tobacco Use Status: Current every day Tobacco Type: cigarettes and e- cigarettes Smoking risk assessment performed?: Yes Alcohol Intake: current Alcohol Intake frequency: a few times a month Drug use: Occasionally Substance use type: marijuana Do you feel safe at home: Yes Do you feel safe in your relationship?: Yes Additional Social history: recently lost boyfriend to an overdose Exam Const General: cooperative, healthy appearing, comfortable and no acute distress Orientation: alert and awake HENHI Head: normal to inspection, normocephalic and atraumatic Eyes Conjunctivae: conjunctivae normal Neck Neck: normal visual inspection, trachea midline and supple Resp Effort & Inspection: normal respiratory effort and able to speak in complete sentences Auscultation: clear to auscultation bilaterally Cardio Rate: tachycardic (112) Rhythm: regular rhythm Skin General skin exam: no rashes or lesions noted Neuro General: patient alert, patient awake, moves all extremities and no focal motor deficits Cognition: normal cognition Gait: antalgic (Minimally) Motor: muscle tone normal throughout Sensory Exam: no sensory deficits noted Extrem General: normal to inspection, full ROM, capillary refill normal, no pedal edema and no calf tenderness Other: Right knee difficult exam secondary to a guarded examination. She has full range of motion. Diffuse discomfort throughout to palpation, slightly worse along the anterior aspect but when I apply ice with greater pressure then I palpated with my hand there is no reaction. Knee appears stable although she has increased discomfort with all movement and all stress in every direction. T here is no erythema, ecchymosis, obvious swelling. Negative Homans' sign. Calf is unremarkable without palpable cord. Normal pedal pulse and capillary refill. Psych Appearance: grossly normal Mental Status: mental status grossly normal
--- NOTE | 2022-01-26 18:45 | DI.RAD_ITS ---
Exam(s) XR KNEE RT 4V+ EXAM: XR KNEE RT 4V+ CLINICAL HISTORY: Stepped awkwardly, felt a pop. TECHNIQUE: 2D digital imaging was performed of the right knee. Four views obtained. AP, lateral, Me rchant and PA tunnel views were obtained. COMPARISON: No exams were available for comparison FINDINGS: BONES: No acute fracture is present. No bony destructive lesion is seen. JOINTS: The knee is normally aligned. No joint effusion is seen. SOFT TISSUE: Normal. IMPRESSION: No acute fracture or dislocation. DATA REPOSITORY: RADIATION DOSE DELIVERED:
[2022-01-26 19:48] VITALS: BP 148/91; PULSE 108; RESP 16; TEMP 36.7; O2SAT 97
[2022-01-26 19:52] VITALS: PULSE 109; RESP 16; TEMP 36.6
--- NOTE | 2022-01-26 19:57 | DI.VRAD_ITS ---
PROCEDURE INFORMATION: Exam: XR Right Knee Exam date and time: 01/26/2022 7:18 PM Age: 36 years old Clinical indication: Injury or trauma; Other: Stepped awkwardly, felt a pop; Sprain or strain; Patella or knee; Right TECHNIQUE: Imaging protocol: XR Right knee. Views: 4 or more views. COMPARISON: CR RIGHT KNEE COMPLETE 12/26/2017 11:27 PM FINDINGS: Bones/joints: No evidence of fracture. Negative for dislocation. Negative for bony erosion or destructive change. Patella tracks normally. Mild medial compartment narrowing and osteophyte. Soft tissues: Negative for soft tissue air. No foreign bodies observed. IMPRESSION: No acute osseous abnormality. If symptoms persist, follow-up imaging is advised. Dictated and Authenticated by: Good Tabor MD. Ordering:MEAGHAN Hannon MD
== END 2022-01-26 20:09 | disposition home or self-care (01) ==
PROVIDERS: Emergency Provider Physician Assistant; PCP Nurse Practitioner Family
DX: M25.561 Pain in right knee (principal); X50.1XXA Overexertion from prolonged static or awkward postures, initial encounter
CPT/HCPCS: 29505; 99283; 73564

== ENCOUNTER 2022-04-15 15:58 | Emergency (ER) | payer MEDICARE, MEDICAID, SELFPAY ==
[2022-04-15 16:10] VITALS: BP 135/81; PULSE 91; RESP 16; TEMP 36.8; O2SAT 95
[2022-04-15 17:50] VITALS: BP 149/78; PULSE 98; RESP 19; TEMP 37; O2SAT 96
[2022-04-15 18:06] LABS: Glucose 150 mg/dL (74-106)
--- NOTE | 2022-04-15 18:18 | W.ED.GENAD ---
Discharge Plan Disposition Patient Disposition: HOME Condition: Stable Discharge Details Clinical Impression: Nausea & vomiting Primary Care Provider: Rachana Ochoa ED Provider: Corinne Marcial Home Meds and New Rx's Prescriptions: New metoclopramide HCl [Reglan] 10 mg tablet 10 mg PO Q6H PRNQty: 10 0RF Continued (DME) blood pressure monitor Kit See Rx Instructions .ROUTE .MEDSUPPLY Qty: 1 0RF Rx Instructions: As directed simvastatin 10 mg Tablet 10 mg PO DAILY lisinopril 5 mg Tablet 5 mg PO DAILY Trulicity 1.5 mg/0.5 mL Pen Injector 1.5 mg SUBCUT QWEEK cetirizine 10 mg tablet 1 tab PO DAILY acetaminophen [Tylenol] 325 MG tablet 650 mg PO PRN PRN albuterol sulfate 90 mcg/actuation HFA aerosol inhaler 2 puff INHALATION Q6H PRN Label Comments: INL 2 PFS PO Q 4 TO 6 H PRF COUGH OR SOB glipizide 5 mg tablet 10 mg PO DAILY Label Comments: TK 1 T PO QD Saline Nasal 0.65 % aerosol,spray 2 spray INTRANASAL BID Label Comments: U 2 SPRAYS IEN BID PRN meloxicam 15 mg tablet 15 mg PO DAILY Label Comments: TAKE 1 TABLET BY MOUTH EVERY DAY Discharge Instructions Instructions: Acute Nausea and Vomiting (ED) Additional Instructions: Take Reglan as needed for nausea and vomiting Barbara jennifer, clear liquids as tolerated [place] diet when feeling symptomatically improved Return earlier should you have new or worsening complaints Referrals: Rachana Ochoa [Primary Care Provider] - Discharge Data Discharge Date/Time-TO BE ENTERED AT DEPARTURE: 04/15/22 18:22 Medical Decision Making Patient appears well, she declines any additional intervention at this time She is fully alert and oriented, she has no abdominal tenderness She is discharged home with Reglan prescription should she need it for nausea and vomiting Return precautions discussed and patient expressed understanding Suspect gastroenteritis related to spoiled food consumption however viral etiology cannot be excluded Medical Records Medical records reviewed: Yes I reviewed the patient's medical records. Lab Data Lab results reviewed: Yes I reviewed the patient's lab results. HPI General Date/Time Provider Initiated Documentation: 04/15/22 16:23. HPI Narrative: This 36-year-old female presents with report of nausea and vomiting that started after eating [employer]. Patient had a hamburger. Her sister who also ate a hamburger became ill as well. Denies diarrhea. Denies any cramping in her abdomen. Otherwise feeling symptomatically improved at this time and only 1 episode of vomiting. Denies fever or chills. Denies any cough or shortness of breath. Denies any urinary symptoms or chance of . Related Data Home Medications Medication Instructions Recorded Confirmed acetaminophen 325 mg tablet 650 mg PO PRN PRN 05/15/17 04/15/22 (Tylenol) blood pressure monitor #1 ea 02/13/20 albuterol sulfate 90 mcg/actuation 2 puff inhalation Q6H PRN 07/19/20 04/15/22 aerosol inhaler glipizide 5 mg tablet 10 mg PO DAILY 07/19/20 04/15/22 sodium chloride 0.65 % nasal spray 2 spray intranasal BID 07/19/20 04/15/22 aerosol (Saline Nasal) dulaglutide 1.5 mg/0.5 mL 1.5 mg subcut QWEEK 05/06/21 04/15/22 subcutaneous pen injector (Trulicity) lisinopril 5 mg tablet 5 mg PO DAILY 05/06/21 04/15/22 simvastatin 10 mg tablet 10 mg PO DAILY 05/06/21 04/15/22 meloxicam 15 mg tablet 15 mg PO DAILY 01/26/22 04/15/22 cetirizine 10 mg tablet 1 tab PO DAILY 04/15/22 04/15/22 metoclopramide HCl 10 mg tablet 10 mg PO Q6H PRN #10 tabs 04/15/22 (Reglan) Previous Rx's Medication Instructions Recorded blood pressure monitor #1 ea 02/13/20 metoclopramide HCl 10 mg tablet 10 mg PO Q6H PRN #10 tabs 04/15/22 (Reglan) Allergies Allergy/AdvReac Type Severity Reaction Status Date / Time Sulfa (Sulfonamide Allergy Other (See Unverified 04/15/22 16:13 Antibiotics) Comment) Latex, Natural Rubber AdvReac Intermediate break Unverified 04/15/22 16:14 out skin turns red Penicillins AdvReac Intermediate Hives Unverified 04/15/22 16:13 [email or web address] [From Robitussin] AdvReac Mild Nausea Unverified 04/15/22 16:13 General Stated Complaint: Abd Prob JUDITH: 4 Review of Systems All systems reviewed & are unremarkable except as noted in HPI and below PFSH All Active Problems (Updated 04/15/22 @ 18:13 by JAMA Hollingsworth) Nausea & vomiting (Acute) Acute pain of left wrist (Acute) Pyelonephritis (Acute) Dehydration (Acute) Hypokalemia (Acute) Hypocalcemia (Acute) Hypomagnesemia (Acute) Left knee pain (Acute) Chest pain (Acute) Medical History (Updated 04/15/22 @ 18:13 by JAMA Hollingsworth) Diabetes HTN (hypertension) Hypertension Rheumatoid arthritis Surgical History H/O section H/O heart valve replacement with bioprosthetic valve History of bilateral tubal ligation History of hernia repair Social History Smoking/Tobacco Use Status: Current every day Tobacco Type: cigarettes Smoking risk assessment performed?: Yes Alcohol Intake: current Alcohol Intake frequency: a few times a month Drug use: Daily Substance use type: marijuana Do you feel safe at home: Yes Do you feel safe in your relationship?: Yes Exam Const General: cooperative, comfortable and no acute distress Eyes Sclera: sclerae normal Resp Effort & Inspection: normal respiratory effort Auscultation: clear to auscultation bilaterally Cardio Rate: regular rate Rhythm: regular rhythm GI Inspection: normal to inspection Skin General skin exam: no rashes or lesions noted Neuro General: patient alert Course Vital Signs Vital signs: Vital Signs Temperature 36.8 C 04/15/22 16:10 Pulse 91 H 04/15/22 16:10 Respiratory Rate 16 04/15/22 16:10 Blood Pressure 135/81 04/15/22 16:10 Pulse Oximetry 95 04/15/22 16:10 Temperature 37.0 C 04/15/22 17:50 Temperature Source Temporal Artery Scan 04/15/22 17:50 Pulse 98 H 04/15/22 17:50 Respiratory Rate 90 H 04/15/22 17:50 Respiratory Effort 04/15/22 16:44 Blood Pressure 149/78 H 04/15/22 17:50 Blood Pressure Position Sitting 04/15/22 16:10 Pulse Oximetry 96 04/15/22 17:50 Oxygen Delivery Method Room Air 04/15/22 17:50 Oxygen Flow Rate 0 04/15/22 17:50 Pain Level 0 04/15/22 17:50 Comment 04/15/22 16:10 PAWSS Have you Been Recently Intoxicated or Drunk Within the Last 30 days?: No Have you Ever Experienced Previous Episodes of Alcohol Withdrawal?: No Have you ever Experienced Withdrawal Seizures?: No Have you ever Experienced Delirium Tremens(DT)s?: No Have you ever undergone Alcohol Rehabilitation Treatment (i.e, inpt ot outpatient treatment programs)?: No Have you ever Experienced Blackouts?: No Have you ever Combined Alcohol with other Downers within the last 90 days?: No Have you ever Combined Alcohol with any other Substance of Abuse during the last 90 days?: No Positive Blood Alcohol level on Presentation? [PCS.BAL]: No Evidence of Increased Autonomic Activity (i.e. HR>120, tremor, sweating, agitation, nausea)?: No Result: 0
[2022-04-15] MEDS: Metoclopramide 10 MG TAB PO (18:20)
== END 2022-04-15 18:22 | disposition home or self-care (01) ==
PROVIDERS: Emergency Provider Physician Assistant; PCP Nurse Practitioner Family
DX: R11.2 Nausea with vomiting, unspecified (principal)
CPT/HCPCS: 36416; 82947; 82962; 99283

== ENCOUNTER 2022-08-30 15:59 | Emergency (ER) | payer MEDICARE, MEDICAID, SELFPAY ==
[2022-08-30] VITALS (19 sets, daily range): BP systolic 142–158; BP diastolic 72–133; PULSE 69–89; RESP 16; TEMP 36.6; O2SAT 91–98
--- NOTE | 2022-08-30 16:00 | RT.EKG_ITS ---
APPROVED REPORT Exam: Resting ECG Reason for Exam: sob Patient Location: E HR:85 bpm ECG Measurements Heart Rate 85 AXIS [place] 155 P 66 QRSd 169 QRS 96 QT 418 T 34 QTc 498 Conclusion Sinus rhythm...normal P axis, V-rate 60- 99 RBBB and LPFB...QRSd >120mS, axis(90,210) ST elevation secondary to IVCD...Multiple VCG criteria
--- NOTE | 2022-08-30 16:15 | DI.RAD_ITS ---
Exam(s) XR PORTABLE CHEST AP EXAM: XR PORTABLE CHEST AP CLINICAL HISTORY: cough TECHNIQUE: 2D digital imaging was performed. COMPARISON: No exams were available for comparison FINDINGS: Exam is limited by technique and mild respiratory motion. Leads overlie the chest. The heart is enlarged. Sternal wires and valve prosthesis are again noted. The lungs are clear wher e visualized. IMPRESSION: No acute findings. DATA REPOSITORY: RADIATION DOSE DELIVERED:
--- NOTE | 2022-08-30 16:25 | ED.GENADUL_ITS ---
Discharge Plan Disposition Patient Disposition: HOME Condition: Stable Discharge Details Clinical Impression: Cough Primary Care Provider: Rachana Ochoa ED Provider: Good Brown Home Meds and New Rx's Prescriptions: New prednisone 20 mg tablet 60 mg PO DAILY 4 Days Qty: 12 0RF doxycycline hyclate 100 mg tablet 100 mg PO BID Qty: 14 0RF Continued (DME) blood pressure monitor Kit See Rx Instructions .ROUTE .MEDSUPPLY Qty: 1 0RF Rx Instructions: As directed simvastatin 10 mg Tablet 10 mg PO DAILY lisinopril 5 mg Tablet 5 mg PO DAILY Trulicity 1.5 mg/0.5 mL Pen Injector 1.5 mg SUBCUT QWEEK cetirizine 10 mg tablet 1 tab PO DAILY metoclopramide HCl [Reglan] 10 mg tablet 10 mg PO Q6H PRNQty: 10 0RF acetaminophen [Tylenol] 325 MG tablet 650 mg PO PRN PRN albuterol sulfate 90 mcg/actuation HFA aerosol inhaler 2 puff INHALATION Q6H PRN Label Comments: INL 2 PFS PO Q 4 TO 6 H PRF COUGH OR SOB glipizide 5 mg tablet 10 mg PO DAILY Label Comments: TK 1 T PO QD Saline Nasal 0.65 % aerosol,spray 2 spray INTRANASAL BID Label Comments: U 2 SPRAYS IEN BID PRN meloxicam 15 mg tablet 15 mg PO DAILY Label Comments: TAKE 1 TABLET BY MOUTH EVERY DAY Discharge Instructions Instructions: Acute Cough (ED) Additional Instructions: follow up with your primary care provider within a week especially if symptoms continue if you feel more ill, worsening trouble breathing or severe pain return to the emergency department Stand Alone Forms: Work Release Medical Decision Making 36 yo female with a past medical history of DiGeorge's syndrome and states she had open heart surgery and valve replacement as a child, tubal ligation, diabetes, and chronic tobacco abuse who comes in with chief complaint of 4-5 days of persistent cough and when she coughs feels lightheaded. She states on the first day she had chest pressure but none since and denies any pain now. She denies any fevers or chills. She arrives stable, no hypoxia or tachycardia and afebrile. She is speaking in full sentences, intermittent dry cough during exam. She does have a systolic murmur on exam at the left parasternal border, no distant heart sounds, diffuse wheezing in both lungs and no lower extremity swelling or calf tenderness. Suspect asthma vs copd from her smoking history, will treat with duoneb and solumedrol. Will obtain xray to evaluate for infiltrate, and also obtain fluvid swab, cbc, cmp. Symptoms seem most consistent with asthma/copd or infectious etiology, given her chest pain the first day will send troponin. Wells low and perc negative so do not feel pe indicated. No tearing back pain and normal peripheral pulses so doubt dissection labs and imaging unremarkable, she states she feels significantly better. She has only mild apical wheezing now bilaterally. Will cover for possible copd exacerbation with doxy and prescribe prednisone. Advised to f/u with pcp, return precautions given Differential Diagnosis Differential Diagnosis: copd/asthma, uri, covid, pneumonia Medical Records Medical records reviewed: Yes I reviewed the patient's medical records. Imaging Data Radiologic Study: Attestation: I personally reviewed and interpreted this imaging study as follows: Imaging: X-Ray My impression: no acute findings Lab Data Lab results reviewed: Yes I reviewed the patient's lab results. ECG Data Attestation: I personally reviewed and interpreted this ECG (s) as follows: Prior ECG tracings: available for review Interpretation: sinus rhythm, rate of 85, pr 155, no stemi, rbb and lpfb unchanged from prior ekg HPI General Mode of arrival: ambulatory . Date/Time Provider Initiated Documentation: 08/30/22 16:02 . Limitations to Documentation: no limitations . Information obtained by: patient . History of Present Illness 36 year old F presents to the emergency department with the chief complaint of cough, described as moderate, Patient started experiencing this day(s) (5) and it has been constant. No relieving factors improve symptom(s), No exacerbating factors reported . Patient notes other (lightheaded, cough, ). Patient did receive the following treatments prior to arrival, none Related Data Home Medications Medication Instructions Recorded Confirmed acetaminophen 325 mg tablet 650 mg PO PRN PRN 05/15/17 04/15/22 (Tylenol) blood pressure monitor #1 ea 02/13/20 albuterol sulfate 90 mcg/actuation 2 puff inhalation Q6H PRN 07/19/20 04/15/22 aerosol inhaler glipizide 5 mg tablet 10 mg PO DAILY 07/19/20 04/15/22 sodium chloride 0.65 % nasal spray 2 spray intranasal BID 07/19/20 04/15/22 aerosol (Saline Nasal) dulaglutide 1.5 mg/0.5 mL 1.5 mg subcut QWEEK 05/06/21 04/15/22 subcutaneous pen injector (Trulicity) lisinopril 5 mg tablet 5 mg PO DAILY 05/06/21 04/15/22 simvastatin 10 mg tablet 10 mg PO DAILY 05/06/21 04/15/22 meloxicam 15 mg tablet 15 mg PO DAILY 01/26/22 04/15/22 cetirizine 10 mg tablet 1 tab PO DAILY 04/15/22 04/15/22 metoclopramide HCl 10 mg tablet 10 mg PO Q6H PRN #10 tabs 04/15/22 (Reglan) doxycycline hyclate 100 mg tablet 100 mg PO BID #14 tabs 08/30/22 prednisone 20 mg tablet 60 mg PO DAILY 4 days #12 tabs 08/30/22 Previous Rx's Medication Instructions Recorded blood pressure monitor #1 ea 02/13/20 metoclopramide HCl 10 mg tablet 10 mg PO Q6H PRN #10 tabs 04/15/22 (Reglan) doxycycline hyclate 100 mg tablet 100 mg PO BID #14 tabs 08/30/22 prednisone 20 mg tablet 60 mg PO DAILY 4 days #12 tabs 08/30/22 Allergies Allergy/AdvReac Type Severity Reaction Status Date / Time Sulfa (Sulfonamide Allergy Other (See Unverified 08/30/22 16:16 Antibiotics) Comment) Latex, Natural Rubber AdvReac Intermediate break Unverified 08/30/22 16:16 out skin turns red Penicillins AdvReac Intermediate Hives Unverified 08/30/22 16:16 guaifenesin [From Robitussin] AdvReac Mild Nausea Unverified 08/30/22 16:16 General Stated Complaint: Dizzy/Sync JUDITH: 3 Review of Systems All systems reviewed & are unremarkable except as noted in HPI and below Constitutional Constitutional: Denies chills, Denies fever(s) and Denies weakness Cardiovascular Cardiovascular: Denies chest pain Gastrointestinal Gastrointestinal: Denies abdominal pain, Denies nausea and Denies vomiting Musculoskeletal Musculoskeletal: Denies joint swelling Neurologic Neurologic: Denies weakness PFSH All Active Problems (Updated 08/30/22 @ 18:46 by Good Brown MD) Cough (Acute) Acute pain of left wrist (Acute) Pyelonephritis (Acute) Dehydration (Acute) Hypokalemia (Acute) Hypocalcemia (Acute) Hypomagnesemia (Acute) Left knee pain (Acute) Chest pain (Acute) Medical History (Updated 08/30/22 @ 18:46 by Good Brown MD) Diabetes HTN (hypertension) Hypertension Rheumatoid arthritis Surgical History H/O section H/O heart valve replacement with bioprosthetic valve History of bilateral tubal ligation History of hernia repair Social History Smoking/Tobacco Use Status: Current every day Tobacco Type: cigarettes Smoking risk assessment performed?: Yes Alcohol Intake: current Alcohol Intake frequency: a few times a month Drug use: Daily Substance use type: marijuana Do you feel safe at home: Yes Do you feel safe in your relationship?: Yes Exam Const General: no acute distress Orientation: alert HENMT Head: normal to inspection Ears: external ears normal General nose exam: external nose normal Mouth: moist mucous membranes Eyes General: appearance normal, both eyes and all related structures Neck Neck: normal visual inspection Resp Effort & Inspection: normal respiratory effort, able to speak in complete sentences and audible wheezes Cardio Jugular venous pressure: no JVD Rate: regular rate Heart Sounds: murmur systolic Skin General skin exam: no rashes or lesions noted Neuro General: patient alert and patient oriented x3 Extrem General: normal to inspection Psych Mental Status: mental status grossly normal Course Vital Signs Vital signs: Vital Signs Temperature 36.6 C 08/30/22 16:05 Pulse 86 08/30/22 16:05 Respiratory Rate 16 08/30/22 16:05 Blood Pressure 147/80 H 08/30/22 16:05 Pulse Oximetry 98 08/30/22 16:05 Temperature 36.6 C 08/30/22 16:05 Temperature Source Skin 08/30/22 16:05 Pulse 86 08/30/22 16:05 Respiratory Rate 16 08/30/22 16:05 Blood Pressure 147/80 H 08/30/22 16:05 Blood Pressure Position Sitting 08/30/22 16:05 Pulse Oximetry 98 08/30/22 16:05 Oxygen Delivery Method Room Air 08/30/22 16:05 Oxygen Flow Rate 0 08/30/22 16:05 Pain Level 6 08/30/22 16:05
[2022-08-30] MEDS: methylPREDNISolone SUCC 125 MG VIAL IVP (17:24)
[2022-08-30] MEDS: Albuterol/Ipratropium 3 ML UPD VIAL UPD (17:24)
[2022-08-30 17:30] LABS: Abs Immature Grans 0.03 10^3/uL (0.0-0.06); Absolute Basophil Count 0.04 10^3/uL (0.0-0.2); Absolute Eosinophil Count 0.72 10^3/uL (0.0-0.7); Absolute Lymphocyte Count 1.88 10^3/uL (1.2-3.4); Absolute Monocyte Count 0.48 10^3/uL (0.1-0.8); Basophils % 0.4; HCT 42.9 % (36.0-46.0); HGB 13.8 g/dL (11.2-15.7); Immature Grans % 0.3; Lymphocytes % 18.2; MCH 29.5 pg (27.0-33.0); MCHC 32.2 % (32.0-36.0); MCV 92 fL (80-95); MPV 10.6 fL (8.0-11.0); Monocytes % 4.6; Neutrophils % 69.5; Platelet Count 171 10^3/uL (130-400); RBC 4.68 10^6/uL (3.93-5.22); RDW 13.1 % (11.7-14.6); RDW-SD 44.2 fL; WBC 10.35 10^3/uL (4.4-10.8)
[2022-08-30 17:43] LABS: ALT 18 U/L (14-59); AST 21 U/L (15-37); Albumin 3.7 g/dL (3.4-5.0); Alkaline Phosphatase 70 U/L (46-116); Anion Gap 7.3 mmol/L (3-11); BUN 10 mg/dL (7-18); Bilirubin, Total 0.3 mg/dL (0.2-1.0); CO2 27.7 mmol/L (21.0-32.0); CREATININE 0.7 mg/dL (0.55-1.02); Calcium 8.8 mg/dL (8.5-10.1); Chloride 103 mmol/L (98-107); Estimated GFR 114.88 (mL/min/1.73m2); Glucose 112 mg/dL (74-106); Sodium 138 mmol/L (136-145); Total Protein 7.7 g/dL (6.4-8.2)
[2022-08-30 17:46] LABS: Troponin I < 50 ng/L (<or=60)
[2022-08-30 18:03] LABS: COVID-19 PCR Negative (Negative); Influenza A PCR Negative (Negative); Influenza B PCR Negative (Negative); RSV PCR Negative (Negative)
[2022-08-30 18:05] LABS: Source Nasopharynx
[2022-08-30] MEDS: Doxycycline Hyclate 100 MG CAP PO (19:16)
== END 2022-08-30 19:28 | disposition home or self-care (01) ==
PROVIDERS: Emergency Provider Emergency Medicine; PCP Nurse Practitioner Family
DX: R05.3 Chronic cough (principal); R06.2 Wheezing; R01.1 Cardiac murmur, unspecified; I10 Essential (primary) hypertension; E11.9 Type 2 diabetes mellitus without complications; F17.210 Nicotine dependence, cigarettes, uncomplicated; Z20.822 Contact with and (suspected) exposure to COVID-19
CPT/HCPCS: 80053; 87637; 93005; 94640; 96374; 99284; 71045; 83735; 84484; 85025; 93010; J2930; J3490; J7620

== ENCOUNTER 2022-10-01 11:45 | Emergency (ER) | payer MEDICARE, MEDICAID, SELFPAY ==
[2022-10-01 11:49] VITALS: BP 95/62; PULSE 77; RESP 18; TEMP 36.8; O2SAT 94
[2022-10-01 12:20] LABS: Source Nasal/Nares
--- NOTE | 2022-10-01 12:30 | DI.RAD_ITS ---
Exam(s) XR PORTABLE CHEST AP EXAM: XR PORTABLE CHEST AP CLINICAL HISTORY: weakness TECHNIQUE: COMPARISON: CR XR PORTABLE CHEST AP from 08/30/2022 FINDINGS: The heart is enlarged. Valvular prosthesis again noted. The lungs are clear and well expanded. No pleural effusion on this frontal film. IMPRESSION: No evidence of acute change. RADIATION DOSE DELIVERED: Total DLP
--- NOTE | 2022-10-01 12:30 | RT.EKG_ITS ---
APPROVED REPORT Exam: Resting ECG Reason for Exam: weakness Patient Location: E HR:89 bpm ECG Measurements Heart Rate 89 AXIS MO 173 P 64 QRSd 165 QRS 167 QT 429 T 46 QTc 522 Conclusion Sinus rhythm...normal P axis, V-rate 60- 99 Probable left atrial enlargement...P >50mS, <-0.10mV V1 RBBB and LPFB...QRSd >120mS, axis(90,210) ST elevation secondary to IVCD...Multiple VCG criteria
[2022-10-01 12:56] LABS: COVID-19 PCR Negative (Negative)
[2022-10-01 13:06] LABS: Abs Immature Grans 0.05 10^3/uL (0.0-0.06); Absolute Basophil Count 0.02 10^3/uL (0.0-0.2); Absolute Eosinophil Count 0.01 10^3/uL (0.0-0.7); Absolute Lymphocyte Count 1.03 10^3/uL (1.2-3.4); Absolute Monocyte Count 0.83 10^3/uL (0.1-0.8); Absolute Neutrophil Count 6.76 10^3/uL (1.2-6.7); Basophils % 0.2; Eosinophils % 0.1; HCT 45.7 % (36.0-46.0); HGB 14.9 g/dL (11.2-15.7); Immature Grans % 0.6; Lactate 1.7 mmol/L (0.6-1.4); Lymphocytes % 11.8; MCH 29.7 pg (27.0-33.0); MCHC 32.6 % (32.0-36.0); MCV 91 fL (80-95); MPV 10.6 fL (8.0-11.0); Monocytes % 9.5; Neutrophils % 77.8; Platelet Count 176 10^3/uL (130-400); RBC 5.02 10^6/uL (3.93-5.22); RDW 13.7 % (11.7-14.6); RDW-SD 46.1 fL
[2022-10-01] MEDS: Acetaminophen 325 MG TAB 650 MG PO (13:23)
[2022-10-01] MEDS: Lactated Ringers 1,000 ML 1000 ML IV (13:23)
[2022-10-01] MEDS: Albuterol/Ipratropium 3 ML UPD VIAL UPD (13:23)
[2022-10-01] MEDS: Ondansetron 4 MG/2 ML VIAL IVP (13:24)
[2022-10-01 13:26] LABS: ALT 17 U/L (14-59); AST 19 U/L (15-37); Albumin 3.7 g/dL (3.4-5.0); Alkaline Phosphatase 67 U/L (46-116); Anion Gap 10.2 mmol/L (3-11); BUN 10 mg/dL (7-18); Bilirubin, Total 0.4 mg/dL (0.2-1.0); CO2 26.8 mmol/L (21.0-32.0); Calcium 8.5 mg/dL (8.5-10.1); Chloride 100 mmol/L (98-107); Estimated GFR 74.88 (mL/min/1.73m2); Glucose 206 mg/dL (74-106); Magnesium 1.9 mg/dL (1.8-2.4); Potassium 3.9 mmol/L (3.5-5.1); Sodium 137 mmol/L (136-145); Total Protein 7.8 g/dL (6.4-8.2)
--- NOTE | 2022-10-01 14:42 | ED.GENADUL_ITS ---
Discharge Plan Disposition Patient Disposition: Home Condition: Stable Discharge Details Clinical Impression: Dehydration, Flu-like symptoms, Nausea & vomiting Primary Care Provider: Rachana Ochoa ED Provider: Corinne Marcial Home Meds and New Rx's Prescriptions: New prochlorperazine maleate [Compazine] 10 mg tablet 10 mg PO Q8H PRNQty: 10 0RF prednisone 20 mg tablet 40 mg PO ONCE Qty: 10 0RF Continued (DME) blood pressure monitor Kit See Rx Instructions .ROUTE .MEDSUPPLY Qty: 1 0RF Rx Instructions: As directed simvastatin 10 mg Tablet 10 mg PO DAILY lisinopril 5 mg Tablet 5 mg PO DAILY Trulicity 1.5 mg/0.5 mL Pen Injector 1.5 mg SUBCUT QWEEK cetirizine 10 mg tablet 1 tab PO DAILY metoclopramide HCl [Reglan] 10 mg tablet 10 mg PO Q6H PRNQty: 10 0RF acetaminophen [Tylenol] 325 MG tablet 650 mg PO PRN PRN albuterol sulfate 90 mcg/actuation HFA aerosol inhaler 2 puff INHALATION Q6H PRN Label Comments: INL 2 PFS PO Q 4 TO 6 H PRF COUGH OR SOB glipizide 5 mg tablet 10 mg PO DAILY Label Comments: TK 1 T PO QD Saline Nasal 0.65 % aerosol,spray 2 spray INTRANASAL BID Label Comments: U 2 SPRAYS IEN BID PRN meloxicam 15 mg tablet 15 mg PO DAILY Label Comments: TAKE 1 TABLET BY MOUTH EVERY DAY Discharge Instructions Instructions: Dehydration (ED), Acute Nausea and Vomiting (ED) Additional Instructions: Take the prednisone as prescribed Compazine as needed for nausea and vomiting Regular fluids I recommendation for repeat assessment with your primary care physician in 24 to 48 hours and early return should you have new, worsening, or persistent symptoms Discharge Data Discharge Date/Time-TO BE ENTERED AT DEPARTURE: 10/01/22 15:11 Medical Decision Making This 36-year-old complex female with history of bioprosthetic valve replacement diabetes, and hypertension presents secondary to persistent nausea and vomiting, cough, and headache. She had myalgias as well. She states she had subjective fever and chills. Fever was 102 yesterday She is vomited approximately 7 times in the past 24 hours. Secondary to comorbidities and current illness, I did order labs, lactate, blood cultures, labs are reassuring, COVID is negative I suspect patient has influenza Urinalysis has 5-10 white blood cells but is a contaminated specimen and as patient is asymptomatic, my suspicion for UTI is low Initially her blood pressure was at the low end of normal and after liter of fluids and oral supplementation, she is now 140/60 She did have a sat of 91% initially, she was given a nebulizer treatment and is at 96% and able to tolerate p.o., she feeling marked improvement in symptoms, she has blood cultures pending Her chest x-ray shows enlarged heart which has not changed from her prior I think she stable for discharge home at this time, will give antiemetics, steroids, albuterol nebulizer, and schedule patient for close outpatient reassessment She is able to ambulate and feels comfortable discharge home at this time Return precautions reviewed and patient expressed understanding Medical Records Medical records reviewed: Yes I reviewed the patient's medical records. Lab Data Lab results reviewed: Yes I reviewed the patient's lab results. Sign Out No HPI General Date/Time Provider Initiated Documentation: 10/01/22 12:05 . HPI Narrative: This 36-year-old female with complex medical history of diabetes, rheumatoid arthritis, hypertension, bioprosthetic valve replacement presents with reports of myalgias, headache, runny nose, and congestion that started night. She had nausea and vomiting which is why she presents. She states she is have chills but unsure regarding fever. Did not take any antipyretics prior to arrival. She denies any abdominal pain or chest pain. She states she feels short of breath. She denies known sick contacts or chance of . She denies any urinary symptoms. Related Data Home Medications Medication Instructions Recorded Confirmed acetaminophen 325 mg tablet 650 mg PO PRN PRN 05/15/17 10/01/22 (Tylenol) blood pressure monitor #1 ea 02/13/20 10/01/22 albuterol sulfate 90 mcg/actuation 2 puff inhalation Q6H PRN 07/19/20 10/01/22 aerosol inhaler glipizide 5 mg tablet 10 mg PO DAILY 07/19/20 10/01/22 sodium chloride 0.65 % nasal spray 2 spray intranasal BID 07/19/20 10/01/22 aerosol (Saline Nasal) dulaglutide 1.5 mg/0.5 mL 1.5 mg subcut QWEEK 05/06/21 10/01/22 subcutaneous pen injector (Trulicity) lisinopril 5 mg tablet 5 mg PO DAILY 05/06/21 10/01/22 simvastatin 10 mg tablet 10 mg PO DAILY 05/06/21 10/01/22 meloxicam 15 mg tablet 15 mg PO DAILY 01/26/22 10/01/22 cetirizine 10 mg tablet 1 tab PO DAILY 04/15/22 10/01/22 metoclopramide HCl 10 mg tablet 10 mg PO Q6H PRN #10 tabs 04/15/22 10/01/22 (Reglan) prednisone 20 mg tablet 40 mg PO ONCE #10 tabs 10/01/22 prochlorperazine maleate 10 mg 10 mg PO Q8H PRN #10 tabs 10/01/22 tablet (Compazine) Previous Rx's Medication Instructions Recorded blood pressure monitor #1 ea 02/13/20 metoclopramide HCl 10 mg tablet 10 mg PO Q6H PRN #10 tabs 04/15/22 (Reglan) prednisone 20 mg tablet 40 mg PO ONCE #10 tabs 10/01/22 prochlorperazine maleate 10 mg 10 mg PO Q8H PRN #10 tabs 10/01/22 tablet (Compazine) Allergies Allergy/AdvReac Type Severity Reaction Status Date / Time Sulfa (Sulfonamide Allergy Other (See Unverified 10/01/22 11:56 Antibiotics) Comment) Latex, Natural Rubber AdvReac Intermediate break Unverified 10/01/22 11:56 out skin turns red Penicillins AdvReac Intermediate Hives Unverified 10/01/22 11:56 [email or web address] [From Robitussin] AdvReac Mild Nausea Unverified 10/01/22 11:56 General Stated Complaint: GenMedical JUDITH: 3 Review of Systems Narrative: Review of systems obtained x7 and negative aside from medication HPI PFSH All Active Problems (Updated 10/01/22 @ 14:50 by JAMA Hollingsworth) Flu-like symptoms (Acute) Nausea & vomiting (Acute) Acute pain of left wrist (Acute) Pyelonephritis (Acute) Dehydration (Acute) Hypokalemia (Acute) Hypocalcemia (Acute) Hypomagnesemia (Acute) Left knee pain (Acute) Chest pain (Acute) Medical History (Updated 10/01/22 @ 14:50 by JAMA Hollingsworth) Diabetes HTN (hypertension) Hypertension Rheumatoid arthritis Surgical History H/O section H/O heart valve replacement with bioprosthetic valve History of bilateral tubal ligation History of hernia repair Social History Smoking/Tobacco Use Status: Current every day Tobacco Type: cigarettes Smoking risk assessment performed?: Yes Alcohol Intake: current Alcohol Intake frequency: a few times a month Drug use: Daily Substance use type: marijuana Do you feel safe at home: Yes Do you feel safe in your relationship?: Yes Exam Const General: cooperative, comfortable and no acute distress HENMT Other: Moist mucous membranes Eyes Sclera: sclerae normal Resp Effort & Inspection: normal respiratory effort Auscultation: clear to auscultation bilaterally Cardio Rhythm: regular rhythm Heart Sounds: murmur GI Inspection: normal to inspection Rectal Exam - female: visual inspection normal Skin General skin exam: no rashes or lesions noted Neuro General: patient alert and patient oriented x3 Course Vital Signs Vital signs: Vital Signs Temperature 36.8 C 10/01/22 11:49 Pulse 77 10/01/22 11:49 Respiratory Rate 18 10/01/22 11:49 Blood Pressure 95/62 L 10/01/22 11:49 Pulse Oximetry 94 10/01/22 11:49 Temperature 36.8 C 10/01/22 11:49 Temperature Source Oral 10/01/22 11:49 Pulse 77 10/01/22 11:49 Respiratory Rate 18 10/01/22 11:49 Respiratory Effort 10/01/22 13:43 Respiratory Depth Normal 10/01/22 13:43 Respiratory Pattern Normal 10/01/22 13:43 Blood Pressure 95/62 L 10/01/22 11:49 Blood Pressure Position Sitting 10/01/22 11:49 Pulse Oximetry 94 10/01/22 11:49 Oxygen Delivery Method Room Air 10/01/22 11:49 Oxygen Flow Rate 0 10/01/22 11:49 Pain Level 8 10/01/22 11:49 Lab/Test Results Lab/Test Results: 10/01/22 12:59 Blood Blood Culture - Pending 10/01/22 12:37 Blood Blood Culture - Pending Laboratory Tests Range/Units 10/01/22 10/01/22 10/01/22 12:10 13:03 13:03 WBC (4.4-10.8) 10^3/uL RBC (3.93-5.22) 10^6/uL Hgb (11.2-15.7) g/dL Hct (36.0-46.0) % MCV (80-95) fL MCH (27.0-33.0) pg MCHC (32.0-36.0) % RDW (11.7-14.6) % Plt Count (130-400) 10^3/uL MPV (8.0-11.0) fL Immature Gran % Neutrophils % Lymphocytes % Monocytes % Eosinophils % Basophils % Nucleated RBC % (0.0-0.3) % Absolute Neutrophils (1.2-6.7) 10^3/uL Absolute Lymphocytes (1.2-3.4) 10^3/uL Absolute Monocytes (0.1-0.8) 10^3/uL Absolute Eosinophils (0.0-0.7) 10^3/uL Absolute Basophils (0.0-0.2) 10^3/uL VBG Lactate (0.6-1.4) mmol/L 1.7 H Sodium (136-145) mmol/L 137 Potassium (3.5-5.1) mmol/L 3.9 Chloride (98-107) mmol/L 100 Carbon Dioxide (21.0-32.0) mmol/L 26.8 Anion Gap (3-11) mmol/L 10.2 BUN (7-18) mg/dL 10 Creatinine (0.55-1.02) mg/dL 1.0 Est GFR (CKD-EPI 2020) (mL/min/1.73m2) 74.88 Glucose (74-106) mg/dL 206 H Calcium (8.5-10.1) mg/dL 8.5 Magnesium (1.8-2.4) mg/dL 1.9 Total Bilirubin (0.2-1.0) mg/dL 0.4 AST (15-37) U/L 19 ALT (14-59) U/L 17 Alkaline Phosphatase (46-116) U/L 67 Total Protein (6.4-8.2) g/dL 7.8 Albumin (3.4-5.0) g/dL 3.7 COVID-19 Source Nasal/Nares SARS-CoV-2 (PCR) (Negative) Negative Range/Units 10/01/22 13:03 WBC (4.4-10.8) 10^3/uL 8.70 RBC (3.93-5.22) 10^6/uL 5.02 Hgb (11.2-15.7) g/dL 14.9 Hct (36.0-46.0) % 45.7 MCV (80-95) fL 91 MCH (27.0-33.0) pg 29.7 MCHC (32.0-36.0) % 32.6 RDW (11.7-14.6) % 13.7 Plt Count (130-400) 10^3/uL 176 MPV (8.0-11.0) fL 10.6 Immature Gran % 0.6 Neutrophils % 77.8 Lymphocytes % 11.8 Monocytes % 9.5 Eosinophils % 0.1 Basophils % 0.2 Nucleated RBC % (0.0-0.3) % 0.0 Absolute Neutrophils (1.2-6.7) 10^3/uL 6.76 H Absolute Lymphocytes (1.2-3.4) 10^3/uL 1.03 L Absolute Monocytes (0.1-0.8) 10^3/uL 0.83 H Absolute Eosinophils (0.0-0.7) 10^3/uL 0.01 Absolute Basophils (0.0-0.2) 10^3/uL 0.02 VBG Lactate (0.6-1.4) mmol/L Sodium (136-145) mmol/L Potassium (3.5-5.1) mmol/L Chloride (98-107) mmol/L Carbon Dioxide (21.0-32.0) mmol/L Anion Gap (3-11) mmol/L BUN (7-18) mg/dL Creatinine (0.55-1.02) mg/dL Est GFR (CKD-EPI 2020) (mL/min/1.73m2) Glucose (74-106) mg/dL Calcium (8.5-10.1) mg/dL Magnesium (1.8-2.4) mg/dL Total Bilirubin (0.2-1.0) mg/dL AST (15-37) U/L ALT (14-59) U/L Alkaline Phosphatase (46-116) U/L Total Protein (6.4-8.2) g/dL Albumin (3.4-5.0) g/dL COVID-19 Source SARS-CoV-2 (PCR) (Negative)
[2022-10-01 15:00] LABS: Bilirubin Small (Negative); Blood Negative (Negative); Clarity Sl Cloudy (Clear); Glucose Negative (Negative); Ketones Negative (Negative); Leukocyte Esterase Negative (Negative); Nitrite Negative (Negative); Specific Gravity >= 1.030 (1.005-1.025); Urobilinogen 0.2 EU/dL (Up TO 0.2); pH 6.5 (5-8)
--- NOTE | 2022-10-01 15:04 | NUR.NOTE ---
Nursing Note: Referral given to Care Management for nausea,vomiting, flu like illness, JAIME. (Rachana Ochoa, [facility])
[2022-10-01 15:09] LABS: Bacteria Moderate HPF (Negative); Epithelial Cells Many HPF (Negative); RBC 0-2 HPF (0-2)
[2022-10-01 15:10] LABS: C & S Indicated? No/Sq. Contamination; Crystals Negative HPF (Negative); Mucus Heavy (Negative)
[2022-10-01] MEDS: predniSONE 20 MG TAB 40 MG PO (15:11)
[2022-10-01] MEDS: Prochlorperazine 10 MG TAB PO (15:11)
== END 2022-10-01 15:11 | disposition home or self-care (01) ==
PROVIDERS: Emergency Provider Physician Assistant; PCP Nurse Practitioner Family
DX: E86.0 Dehydration (principal); I10 Essential (primary) hypertension; E11.9 Type 2 diabetes mellitus without complications; R05.9 Cough, unspecified; R51.9 Headache, unspecified; R50.9 Fever, unspecified; F17.210 Nicotine dependence, cigarettes, uncomplicated; Z95.4 Presence of other heart-valve replacement; Z20.822 Contact with and (suspected) exposure to COVID-19
CPT/HCPCS: 80053; 87040; 87635; 93005; 94640; 96374; 99284; 99285; 71045; 81003; 81015; 83605; 83735; 85025; 93010; J2405; J7512; J7620

== ENCOUNTER 2023-04-13 01:14 | Outpatient (CLI) | payer MEDICARE, MEDICAID, SELFPAY ==
--- NOTE | 2023-04-13 10:20 | DI.RAD_ITS ---
Exam(s) XR LUMBAR SPINE COMPLETE EXAM: XR LUMBAR SPINE COMPLETE CLINICAL HISTORY: DORSALGIA M54.9 LOW BACK PAIN. TECHNIQUE: 2D digital imaging was performed. COMPARISON: No exams were available for comparison FINDINGS: Five views No evidence of fracture nor listhesis. No significant disc space narrowing. Small shallow Schmorl's node invagination noted at superior endplate of L4. Facet joints unremarkable. No scoliosis. IMPRESSION: Mild findings as above. DATA REPOSITORY: RADIATION DOSE DELIVERED:
== END 2023-04-13 01:34 ==
LOC: DI 01:15
PROVIDERS: Visit Provider Nurse Practitioner Family
DX: M54.9 Dorsalgia, unspecified (principal); M51.46 Schmorl's nodes, lumbar region
CPT/HCPCS: 72110

== ENCOUNTER 2023-07-27 15:57 | Emergency (ER) | payer MEDICARE, MEDICAID, SELFPAY ==
[2023-07-27 16:12] VITALS: BP 145/103; PULSE 94; RESP 18; TEMP 36.9; O2SAT 96
--- NOTE | 2023-07-27 17:00 | RT.EKG_ITS ---
APPROVED REPORT Exam: Resting ECG Reason for Exam: dizziness Patient Location: E HR:78 bpm ECG Measurements Heart Rate 78 AXIS TX 140 P 66 QRSd 168 QRS 128 QT 424 T 28 QTc 485 Conclusion Sinus rhythm...normal P axis, V-rate 60- 99 RBBB and LPFB...QRSd >120mS, axis(90,210) There are no significant changes compared to prior EKG performed on 08/30/2022 at 16:17.
[2023-07-27 17:36] LABS: Abs Immature Grans 0.05 10^3/uL (0.0-0.06); Absolute Basophil Count 0.04 10^3/uL (0.0-0.2); Absolute Eosinophil Count 0.26 10^3/uL (0.0-0.7); Absolute Lymphocyte Count 2.06 10^3/uL (1.2-3.4); Absolute Monocyte Count 0.46 10^3/uL (0.1-0.8); Absolute Neutrophil Count 5.99 10^3/uL (1.2-6.7); Basophils % 0.5; Eosinophils % 2.9; HCT 48.4 % (36.0-46.0); HGB 16.1 g/dL (11.2-15.7); Immature Grans % 0.6; Lymphocytes % 23.3; MCH 30.4 pg (27.0-33.0); MCHC 33.3 % (32.0-36.0); MCV 91 fL (80-95); Monocytes % 5.2; Neutrophils % 67.5; Platelet Count 189 10^3/uL (130-400); RDW 12.9 % (11.7-14.6); RDW-SD 43.2 fL; WBC 8.86 10^3/uL (4.4-10.8)
[2023-07-27 17:53] LABS: ALT 30 U/L (14-59); AST 22 U/L (15-37); Alkaline Phosphatase 74 U/L (46-116); Anion Gap 8.9 mmol/L (3-11); BUN 16 mg/dL (7-18); Bilirubin, Total 0.4 mg/dL (0.2-1.0); CO2 28.1 mmol/L (21.0-32.0); CREATININE 0.8 mg/dL (0.55-1.02); Calcium 9.3 mg/dL (8.5-10.1); Chloride 101 mmol/L (98-107); Estimated GFR 97.26 (mL/min/1.73m2); Glucose 122 mg/dL (74-106); Magnesium 2.1 mg/dL (1.8-2.4); Potassium 4.2 mmol/L (3.5-5.1); Sodium 138 mmol/L (136-145); Total Protein 8.4 g/dL (6.4-8.2)
--- NOTE | 2023-07-27 17:55 | ED.GENADUL_ITS ---
Discharge Plan Disposition Patient Disposition: Home Condition: Stable Discharge Details Clinical Impression: COVID-19 Primary Care Provider: Jessie,Local ED Provider: Corinne Marcial Home Meds and New Rx's Prescriptions: Continued (DME) blood pressure monitor Kit See Rx Instructions .ROUTE .MEDSUPPLY Qty: 1 0RF Rx Instructions: As directed simvastatin 10 mg Tablet 10 mg PO DAILY lisinopril 5 mg Tablet 5 mg PO DAILY Trulicity 1.5 mg/0.5 mL Pen Injector 1.5 mg SUBCUT QWEEK cetirizine 10 mg tablet 1 tab PO DAILY metoclopramide HCl [Reglan] 10 mg tablet 10 mg PO Q6H PRNQty: 10 0RF prochlorperazine maleate [Compazine] 10 mg tablet 10 mg PO Q8H PRNQty: 10 0RF prednisone 20 mg tablet 40 mg PO ONCE Qty: 10 0RF acetaminophen [Tylenol] 325 MG tablet 650 mg PO PRN PRN albuterol sulfate 90 mcg/actuation HFA aerosol inhaler 2 puff INHALATION Q6H PRN Patient Comments: INL 2 PFS PO Q 4 TO 6 H PRF COUGH OR SOB glipizide 5 mg tablet 10 mg PO DAILY Patient Comments: TK 1 T PO QD Saline Nasal 0.65 % aerosol,spray 2 spray INTRANASAL BID Patient Comments: U 2 SPRAYS IEN BID PRN meloxicam 15 mg tablet 15 mg PO DAILY Patient Comments: TAKE 1 TABLET BY MOUTH EVERY DAY Discharge Instructions Instructions: Viral Syndrome (ED) Additional Instructions: You have COVID-19, please be sure that you are drinking regular fluids, at least eight 8 ounce glasses of water daily You are not a candidate for Paxlovid as you are on day 5 of your symptoms You may return to work on days 6 with a mask if you feel well enough Please continue to wear a mask out in public as you are still contagious until day 10 Please return earlier with fever, chills, or should he have any new or worsening complaints Stand Alone Forms: Work Release Discharge Data Discharge Date/Time-TO BE ENTERED AT DEPARTURE: 07/27/23 18:19 Medical Decision Making this clinically complex 37-year-old female presents with upper respiratory symptoms and intermittent episodes of lightheadedness for the past week Secondary to comorbidities I did order some basic blood work which does not show significant acute abnormality, a blood pressure is 144/90, encouraged to have this rechecked by her primary care physician She is of note COVID-positive, she is made aware regarding this, she is on day 5, she is not a candidate for Paxlovid at this time, she is otherwise stable, not hypoxic, in no acute distress, will continue supportive therapy Work note supplied Return precautions reviewed and patient expressed understanding Lungs clear to auscultation, alert and oriented x4, cardiac rate rhythm regular, murmur noted, no peripheral edema or tenderness, neurovascularly intact HPI General Date/Time Provider Initiated Documentation: 07/27/23 17:00 . HPI Narrative: This 37-year-old female presents with upper respiratory symptoms, lightheadedness, fevers for the past week, she has had cough and congestion. Denies any chest pain or shortness of breath. Denies any fever or chills. Related Data Home Medications Medication Instructions Recorded Confirmed acetaminophen 325 mg tablet 650 mg PO PRN PRN 05/15/17 10/01/22 (Tylenol) blood pressure monitor #1 ea 02/13/20 10/01/22 albuterol sulfate 90 mcg/actuation 2 puff inhalation Q6H PRN 07/19/20 10/01/22 aerosol inhaler glipizide 5 mg tablet 10 mg PO DAILY 07/19/20 10/01/22 sodium chloride 0.65 % nasal spray 2 spray intranasal BID 07/19/20 10/01/22 aerosol (Saline Nasal) dulaglutide 1.5 mg/0.5 mL 1.5 mg subcut QWEEK 05/06/21 10/01/22 subcutaneous pen injector (Trulicity) lisinopril 5 mg tablet 5 mg PO DAILY 05/06/21 10/01/22 simvastatin 10 mg tablet 10 mg PO DAILY 05/06/21 10/01/22 meloxicam 15 mg tablet 15 mg PO DAILY 01/26/22 10/01/22 cetirizine 10 mg tablet 1 tab PO DAILY 04/15/22 10/01/22 metoclopramide HCl 10 mg tablet 10 mg PO Q6H PRN #10 tabs 04/15/22 10/01/22 (Reglan) prednisone 20 mg tablet 40 mg PO ONCE #10 tabs 10/01/22 prochlorperazine maleate 10 mg 10 mg PO Q8H PRN #10 tabs 10/01/22 tablet (Compazine) Previous Rx's Medication Instructions Recorded blood pressure monitor #1 ea 02/13/20 metoclopramide HCl 10 mg tablet 10 mg PO Q6H PRN #10 tabs 04/15/22 (Reglan) prednisone 20 mg tablet 40 mg PO ONCE #10 tabs 10/01/22 prochlorperazine maleate 10 mg 10 mg PO Q8H PRN #10 tabs 10/01/22 tablet (Compazine) Allergies Allergy/AdvReac Type Severity Reaction Status Date / Time Sulfa (Sulfonamide Allergy Other (See Unverified 10/01/22 11:56 Antibiotics) Comment) Latex, Natural Rubber AdvReac Intermediate break Unverified 10/01/22 11:56 out skin turns red Penicillins AdvReac Intermediate Hives Unverified 10/01/22 11:56 guaifenesin [From Robitussin] AdvReac Mild Nausea Unverified 10/01/22 11:56 General Stated Complaint: Dizzy/Sync JUDITH: 3 PFSH All Active Problems (Updated 07/27/23 @ 18:04 by JAMA Hollingsworth) COVID-19 (Acute) Acute pain of left wrist (Acute) Pyelonephritis (Acute) Dehydration (Acute) Hypokalemia (Acute) Hypocalcemia (Acute) Hypomagnesemia (Acute) Left knee pain (Acute) Chest pain (Acute) Medical History (Updated 07/27/23 @ 18:04 by JAMA Hollingsworth) Diabetes HTN (hypertension) Hypertension Rheumatoid arthritis Surgical History H/O section H/O heart valve replacement with bioprosthetic valve History of bilateral tubal ligation History of hernia repair Social History Smoking/Tobacco Use Status: Current every day Tobacco Type: cigarettes Smoking risk assessment performed?: Yes Alcohol Intake: current Alcohol Intake frequency: a few times a month Drug use: Daily Substance use type: marijuana Do you feel safe at home: Yes Do you feel safe in your relationship?: Yes Course Vital Signs Vital signs: Vital Signs Temperature 36.9 C 07/27/23 16:12 Pulse 94 H 07/27/23 16:12 Respiratory Rate 18 09/29/23 16:12 Blood Pressure 145/103 H 07/27/23 16:12 Pulse Oximetry 96 07/27/23 16:12 Temperature 36.9 C 07/27/23 16:12 Temperature Source Oral 07/27/23 16:12 Pulse 94 H 07/27/23 16:12 Respiratory Rate 18 07/27/23 16:12 Respiratory Effort Normal 07/27/23 16:14 Blood Pressure 145/103 H 07/27/23 16:12 Blood Pressure Position Sitting 07/27/23 16:12 Pulse Oximetry 96 07/27/23 16:12 Oxygen Delivery Method Room Air 07/27/23 16:12 Oxygen Flow Rate 0 07/27/23 16:12 Lab/Test Results Lab/Test Results: Laboratory Tests Range/Units 07/27/23 07/27/23 17:30 17:30 WBC (4.4-10.8) 10^3/uL 8.86 RBC (3.93-5.22) 10^6/uL 5.30 H Hgb (11.2-15.7) g/dL 16.1 H Hct (36.0-46.0) % 48.4 H MCV (80-95) fL 91 MCH (27.0-33.0) pg 30.4 MCHC (32.0-36.0) % 33.3 RDW (11.7-14.6) % 12.9 Plt Count (130-400) 10^3/uL 189 MPV (8.0-11.0) fL 10.0 Immature Gran % 0.6 Neutrophils % 67.5 Lymphocytes % 23.3 Monocytes % 5.2 Eosinophils % 2.9 Basophils % 0.5 Nucleated RBC % (0.0-0.3) % 0.0 Absolute Neutrophils (1.2-6.7) 10^3/uL 5.99 Absolute Lymphocytes (1.2-3.4) 10^3/uL 2.06 Absolute Monocytes (0.1-0.8) 10^3/uL 0.46 Absolute Eosinophils (0.0-0.7) 10^3/uL 0.26 Absolute Basophils (0.0-0.2) 10^3/uL 0.04 Sodium (136-145) mmol/L 138 Potassium (3.5-5.1) mmol/L 4.2 Chloride (98-107) mmol/L 101 Carbon Dioxide (21.0-32.0) mmol/L 28.1 Anion Gap (3-11) mmol/L 8.9 BUN (7-18) mg/dL 16 Creatinine (0.55-1.02) mg/dL 0.8 Est GFR (CKD-EPI 2020) (mL/min/1.73m2) 97.26 Glucose (74-106) mg/dL 122 H Calcium (8.5-10.1) mg/dL 9.3 Magnesium (1.8-2.4) mg/dL 2.1 Total Bilirubin (0.2-1.0) mg/dL 0.4 AST (15-37) U/L 22 ALT (14-59) U/L 30 Alkaline Phosphatase (46-116) U/L 74 Total Protein (6.4-8.2) g/dL 8.4 H Albumin (3.4-5.0) g/dL 4.0
[2023-07-27 18:14] VITALS: RESP 18
== END 2023-07-27 18:19 | disposition home or self-care (01) ==
PROVIDERS: Emergency Provider Physician Assistant
DX: U07.1 COVID-19 (principal)
CPT/HCPCS: 80053; 87426; 93005; 99283; 83735; 85025; 93010